=== PATIENT | female | born 1995 | race Caucasian/White ===

== ENCOUNTER 2018-03-28 09:18 | Inpatient (IN) | payer MEDICAID ==
[~2018-03-28] VITALS: Ht 157.5 cm; Wt 96.6 kg
[2018-03-28 09:23] VITALS: BP 135/94
[2018-03-28 11:10] VITALS: BP 116/70
[2018-03-28] MEDS ORDERED: MAG HYD/AL HYD/SIMETH 30ML UDC PO PRN (11:20)
[2018-03-28] MEDS ORDERED: ACETAMINOPHEN 325 MG TAB PO PRN (18:35)
[2018-03-28 19:35] VITALS: BP 133/92
[2018-03-28] MEDS: SERTRALINE HCL 50 MG TAB PO SCH (21:04)
[2018-03-28] MEDS: DOCUSATE SODIUM 100 MG CAP PO SCH (21:04)
[2018-03-29 06:06] VITALS: BP 124/85
[2018-03-29 07:45] VITALS: BP 125/92
[2018-03-29] MEDS: SERTRALINE HCL 50 MG TAB PO SCH (08:07)
[2018-03-29] MEDS: MULTIVITAMINS TAB PO SCH (08:07)
[2018-03-29] MEDS: DOCUSATE SODIUM 100 MG CAP PO SCH ×2 (08:07→20:24)
[2018-03-29] MEDS ORDERED: IBUP-56 PO (08:53)
[2018-03-29] MEDS: buPROPion SR 150 MG TABCR PO SCH (10:58)
[2018-03-29 11:51] LABS: PLATELET COUNT, AUTOMATED 321 K/uL (150-450)
[2018-03-29] MEDS ORDERED: ALBUTEROL 8 GM INHALER INH PRN (12:45)
[2018-03-29] MEDS ORDERED: ALBU8.5H IH (14:03)
[2018-03-29] MEDS: CHOLECALCIFEROL 1000 UNIT TAB PO SCH (14:21)
[2018-03-29 20:07] VITALS: BP 129/89
[2018-03-29] MEDS: TOPIRAMATE 25 MG TAB PO SCH (20:23)
[2018-03-29] MEDS ORDERED: IBUPROFEN 200 MG TAB PO PRN (23:30)
[2018-03-29] MEDS: IBUPROFEN 600 MG TAB PO PRN (23:37)
[2018-03-30] MEDS ORDERED: LORazepam 1 MG TAB PO ONE (02:25)
--- NOTE | 2018-03-30 03:02 | NUR ---
PT HAS BEEN UP MULTIPLE TIMES THIS EVENING. PT CAME OUT OF ROOM AND WANTED HER PULSE OX REMOVED. TRIED TO TALK PT INTO KEEPING IT ON FOR THE DATA. PT WAS ADAMANT ABOUT TAKING IT OFF BECAUSE IT WAS CAUSING HER "FINGERS TO GO NUMB". PT CONTINUED TO COME OUT OF HER ROOM (0024) STATING SHE CAN NOT SLEEP, OFFERED TEA, PT DECLINED. PT CONTINUED TO WALK OUT OF ROOM ABOUT EVERY 10 MIN. STATING SHE COULD NOT SLEEP, HER BACK WAS HURTING, WANTING WATER, EAR HURTS, TOILET WONT FLUSH, OR JUST WALK UP TO SKIP TRACER AND TURN BACK AROUND. AT 0210 PT WAS GIVEN 1MG ATIVAN AND TOLD SHE NEEDED TO HAVE THE PULSE OX BACK ON. PT AGREED.
[2018-03-30 05:50] VITALS: BP 124/82
[2018-03-30] MEDS: MULTIVITAMINS TAB PO SCH (08:03)
[2018-03-30] MEDS: buPROPion SR 150 MG TABCR PO SCH (08:03)
[2018-03-30] MEDS: CHOLECALCIFEROL 1000 UNIT TAB PO SCH (08:03)
[2018-03-30] MEDS: DOCUSATE SODIUM 100 MG CAP PO SCH ×2 (08:03→20:51)
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
[2018-03-30] MEDS: [UNRECOGNIZED DRUG - OTHER] TP PRN (13:02)
[2018-03-30] MEDS: CALAMINE TP PRN (13:02)
[2018-03-30] MEDS: IBUPROFEN 600 MG TAB PO PRN (13:16)
--- NOTE | 2018-03-30 14:01 | BHS Progress Note ---
BHS - Subjective Progress Notes Subjective Patient much more interactive today, and notably interacting well with her mother here for treatment team. Patient is easily re-directed behaviorally, will continue current medications and add in low dose valium at night. No evidence of psychosis today. Suicidal Ideation: None Homicidal Ideation: None S - Objective Physical Exam Vital Signs Vital Signs Date Time Temp Pulse Resp B/P (MAP) Pulse Ox O2 Delivery O2 Flow Rate FiO2 03/30/18 05:50 98.0 96 124/82 (96) 93 Room Air 03/29/18 06:06 15 Hematology Test 03/28/18 00:00 03/29/18 00:00 03/29/18 11:41 Urine HCG, Qualitative Negative (NEGATIVE) Urine Color Yellow Urine Clarity Turbid Urine pH 5.0 pH (4.8-9.5) Urine Specific Premier 1.029 Urine Protein Negative mg/dL (NEGATIVE) Urine Glucose (UA) Negative mg/dL (NEGATIVE) Urine Ketones Negative mg/dL (NEGATIVE) Urine Blood Moderate (NEGATIVE) Urine Nitrite Negative (NEGATIVE) Urine Bilirubin Negative (NEGATIVE) Urine Urobilinogen 2.0 mg/dL (0.2-1.9) Urine Leukocyte Esterase Small (NEGATIVE) Urine RBC 4 /HPF (0-2/HPF) Urine WBC 1 /HPF (0-5/HPF) Urine Squamous Epithelial Cells Many /LPF (</=FEW) Urine Bacteria Negative /HPF (NONE-FEW) Urine Mucus Few /HPF (NONE-FEW) Red Blood Count 4.50 M/uL (4.17-5.56) Mean Corpuscular Volume 92.0 fL (80.0-96.0) Mean Corpuscular Hemoglobin 31.4 pg (26.0-33.0) Mean Corpuscular Hemoglobin Concent 34.1 g/dL (32.0-36.0) Red Cell Distribution Width 13.2 % (11.5-14.5) Mean Platelet Volume 7.8 fL (7.2-11.1) Neutrophils (%) (Auto) 76.0 % (39.4-72.5) Lymphocytes (%) (Auto) 15.2 % (17.6-49.6) Monocytes (%) (Auto) 6.7 % (4.1-12.4) Eosinophils (%) (Auto) 1.4 % (0.4-6.7) Basophils (%) (Auto) 0.7 % (0.3-1.4) Nucleated RBC Relative Count (auto) 0.0 /100WBC Neutrophils # (Auto) 8.8 K/uL (2.0-7.4) Lymphocytes # (Auto) 1.8 K/uL (1.3-3.6) Monocytes # (Auto) 0.8 K/uL (0.3-1.0) Eosinophils # (Auto) 0.2 K/uL (0.0-0.5) Basophils # (Auto) 0.1 K/uL (0.0-0.1) Nucleated RBC Absolute Count (auto) 0.00 K/uL Sodium Level 137 mmol/L (137-145) Potassium Level 3.7 mmol/L (3.5-5.0) Chloride Level 102 mmol/L (98-107) Carbon Dioxide Level 25 mmol/L (22-31) Blood Urea Nitrogen 11 mg/dl (7-18) Creatinine 0.60 mg/dl (0.52-1.04) Glomerular Filtration Rate Calc > 60.0 Random Glucose 90 mg/dl (75-110) Calcium Level 9.4 mg/dl (8.4-10.2) Total Bilirubin 0.4 mg/dl (0.2-1.3) Aspartate Amino Transf (AST/SGOT) 94 U/L (0-35) Alanine Aminotransferase (ALT/SGPT) 67 U/L (0-56) Alkaline Phosphatase 77 U/L (0-126) Total Protein 6.3 g/dl (6.3-8.2) Albumin 3.7 g/dl (3.5-5.0) Vitamin D 25-Hydroxy 19 ng/ml (30-100) Thyroid Stimulating Hormone (TSH) 1.48 uIU/ml (0.46-4.68) Free Thyroxine 1.41 ng/dl (0.78-2.19) Free Triiodothyronine 2.9 pg/mL (2.4-4.2) Chemistry Test 03/28/18 00:00 03/29/18 00:00 03/29/18 11:41 Urine HCG, Qualitative Negative (NEGATIVE) Urine Color Yellow Urine Clarity Turbid Urine pH 5.0 pH (4.8-9.5) Urine Specific Premier 1.029 Urine Protein Negative mg/dL (NEGATIVE) Urine Glucose (UA) Negative mg/dL (NEGATIVE) Urine Ketones Negative mg/dL (NEGATIVE) Urine Blood Moderate (NEGATIVE) Urine Nitrite Negative (NEGATIVE) Urine Bilirubin Negative (NEGATIVE) Urine Urobilinogen 2.0 mg/dL (0.2-1.9) Urine Leukocyte Esterase Small (NEGATIVE) Urine RBC 4 /HPF (0-2/HPF) Urine WBC 1 /HPF (0-5/HPF) Urine Squamous Epithelial Cells Many /LPF (</=FEW) Urine Bacteria Negative /HPF (NONE-FEW) Urine Mucus Few /HPF (NONE-FEW) White Blood Count 11.6 k/uL (4.5-11.0) Red Blood Count 4.50 M/uL (4.17-5.56) Hemoglobin 14.1 g/dL (12.0-16.0) Hematocrit 41.4 % (34.0-47.0) Mean Corpuscular Volume 92.0 fL (80.0-96.0) Mean Corpuscular Hemoglobin 31.4 pg (26.0-33.0) Mean Corpuscular Hemoglobin Concent 34.1 g/dL (32.0-36.0) Red Cell Distribution Width 13.2 % (11.5-14.5) Platelet Count 321 K/uL (150-450) Mean Platelet Volume 7.8 fL (7.2-11.1) Neutrophils (%) (Auto) 76.0 % (39.4-72.5) Lymphocytes (%) (Auto) 15.2 % (17.6-49.6) Monocytes (%) (Auto) 6.7 % (4.1-12.4) Eosinophils (%) (Auto) 1.4 % (0.4-6.7) Basophils (%) (Auto) 0.7 % (0.3-1.4) Nucleated RBC Relative Count (auto) 0.0 /100WBC Neutrophils # (Auto) 8.8 K/uL (2.0-7.4) Lymphocytes # (Auto) 1.8 K/uL (1.3-3.6) Monocytes # (Auto) 0.8 K/uL (0.3-1.0) Eosinophils # (Auto) 0.2 K/uL (0.0-0.5) Basophils # (Auto) 0.1 K/uL (0.0-0.1) Nucleated RBC Absolute Count (auto) 0.00 K/uL Glomerular Filtration Rate Calc > 60.0 Calcium Level 9.4 mg/dl (8.4-10.2) Total Bilirubin 0.4 mg/dl (0.2-1.3) Aspartate Amino Transf (AST/SGOT) 94 U/L (0-35) Alanine Aminotransferase (ALT/SGPT) 67 U/L (0-56) Alkaline Phosphatase 77 U/L (0-126) Total Protein 6.3 g/dl (6.3-8.2) Albumin 3.7 g/dl (3.5-5.0) Vitamin D 25-Hydroxy 19 ng/ml (30-100) Thyroid Stimulating Hormone (TSH) 1.48 uIU/ml (0.46-4.68) Free Thyroxine 1.41 ng/dl (0.78-2.19) Free Triiodothyronine 2.9 pg/mL (2.4-4.2) Urinalysis Test 03/28/18 00:00 03/29/18 00:00 Urine HCG, Qualitative Negative (NEGATIVE) Urine Color Yellow Urine Clarity Turbid Urine pH 5.0 pH (4.8-9.5) Urine Specific Premier 1.029 Urine Protein Negative mg/dL (NEGATIVE) Urine Glucose (UA) Negative mg/dL (NEGATIVE) Urine Ketones Negative mg/dL (NEGATIVE) Urine Blood Moderate (NEGATIVE) Urine Nitrite Negative (NEGATIVE) Urine Bilirubin Negative (NEGATIVE) Urine Urobilinogen 2.0 mg/dL (0.2-1.9) Urine Leukocyte Esterase Small (NEGATIVE) Urine RBC 4 /HPF (0-2/HPF) Urine WBC 1 /HPF (0-5/HPF) Urine Squamous Epithelial Cells Many /LPF (</=FEW) Urine Bacteria Negative /HPF (NONE-FEW) Urine Mucus Few /HPF (NONE-FEW) Muscle Strength and Tone: WNL Gait and Station: Steady [facility] Medications Reviewed: Side Effects, Benefits of Medication, Risks Allergies Reviewed: Yes Mental Status Exam General Appearance: Casual, Well Groomed, Good Eye Contact (improved), Cooperative, Polite, Good Interaction, Tearful (at times), Psychomotor Retardation (ongoing), Bizarre Mannerisms (posturing); No Tics Speech: Clear, Normal Volume, Delayed Mood: Dysthmic/Depressed (some improvement. ) Affect: Calm, Sad (at times), Flat (at times), Tearful Thought Process: Goal Directed ("I want to go home"); No Loose Associations, No Flight of Ideas Thought Content: No Suicidal Ideation, No Homicidal Ideation, No Delusions, No Auditory Halllucinations, No Visual Hallucinations, No Thought Broadcasting, No Ideas of Reference, No Obsessions, No Compulsions Sensorium: Clear Cognition: Alert & Oriented-Person, Alert & Oriented-Place, Alert & Oriented- Time, Sttlj-Sctyympm-Jisqjqtek (partially) Memory: Immediate, Recent, Remote Intelligence: Below Average Insight Judgment: Poor (limited by cognition, and current symptoms. 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 continue treatment. 2. low dose valium Q SHALINI MARIE MD Mar 30, 2018 14:01
[2018-03-30] MEDS ORDERED: CYANOCOBALAMIN 1000MCG/ML VIAL IM ONLY ONE (14:55)
[2018-03-30 18:20] VITALS: BP 116/60
[2018-03-30] MEDS: TOPIRAMATE 25 MG TAB PO SCH (20:51)
[2018-03-30] MEDS: DIAZEPAM 5 MG TAB PO SCH (20:51)
[2018-03-31 01:15] VITALS: BP 124/93
[2018-03-31] MEDS: DOCUSATE SODIUM 100 MG CAP PO SCH ×2 (07:50→21:14)
[2018-03-31] MEDS: CHOLECALCIFEROL 1000 UNIT TAB PO SCH (07:50)
[2018-03-31] MEDS: MULTIVITAMINS TAB PO SCH (07:50)
[2018-03-31] MEDS: buPROPion SR 150 MG TABCR PO SCH (07:50)
--- NOTE | 2018-03-31 09:19 | BHS Progress Note ---
[facility] - Subjective Progress Notes Subjective "I'm exhausted and I just want to go home." Rates anxiety level a 10, depression level 10, anger level a 10, guilt a 10, denies SI or HI. Suicidal Ideation: None Homicidal Ideation: None [facility] - Objective Physical Exam Vital Signs Vital Signs 03/31/18 01:15 Temp 97.8 Pulse 92 Resp 16 B/P (MAP) 124/93 (103) Pulse Ox 92 O2 Delivery Room Air Muscle Strength and Tone: WNL Gait and Station: Steady [facility] Medications Reviewed: Side Effects, Benefits of Medication, Risks Allergies Reviewed: Yes Mental Status Exam General Appearance: Casual, Well Groomed, Good Eye Contact (improved), Cooperative, Polite, Good Interaction, Tearful (at times), Psychomotor Retardati on (ongoing), Bizarre Mannerisms (posturing); No Tics Speech: Clear, Normal Volume, Delayed Mood: Dysthmic/Depressed (some improvement. ) Affect: Calm, Sad (at times), Flat (at times), Tearful Thought Process: Goal Directed ("I want to go home"); No Loose Associations, No Flight of Ideas Thought Content: No Suicidal Ideation, No Homicidal Ideation, No Delusions, No Auditory Halllucinations, No Visual Hallucinations, No Thought Broadcasting, No Ideas of Reference, No Obsessions, No Compulsions Sensorium: Clear Cognition: Alert & Oriented-Person, Alert & Oriented-Place, Alert & Oriented- Time, Bbyzn-Sdgbzumb-Quduwsjej (partially) Memory: Immediate, Recent, Remote Intelligence: Below Average Insight Judgment: Poor (limited by cognition, and current symptoms. ) Result Diagram: 03/29/18 1141 03/29/18 1141 [facility] Assessment and Plan [id number] Encounter Date: Mar 31, 2018 [id number] Encounter Time: 09:00 [facility] Plan: Necessary Precautions, Individual/Group Therapy, Admin/Titrate Meds, Educate Patient Tobacco Medications: Bupropion (Wellbutrin), Varenicline (Chantix), Started, Refused, Not Appropriate Condition, Contrainidicated Multpiple Antipsychotics Used: No Problems: (1) Cannabis use disorder, severe, in controlled environment Status: Chronic CHRISTEN MONTANA NP Mar 31, 2018 09:19
[2018-03-31 14:45] VITALS: BP 122/72
[2018-03-31 20:05] VITALS: BP 118/70
[2018-03-31] MEDS: DIAZEPAM 5 MG TAB PO SCH (21:14)
[2018-03-31] MEDS: TOPIRAMATE 25 MG TAB PO SCH (21:14)
[2018-04-01] MEDS: IBUPROFEN 600 MG TAB PO PRN (04:14)
[2018-04-01] MEDS: MULTIVITAMINS TAB PO SCH (08:40)
[2018-04-01] MEDS: DOCUSATE SODIUM 100 MG CAP PO SCH ×2 (08:40→21:04)
[2018-04-01] MEDS: CHOLECALCIFEROL 1000 UNIT TAB PO SCH (08:40)
[2018-04-01] MEDS: buPROPion SR 150 MG TABCR PO SCH (08:40)
[2018-04-01 10:23] VITALS: BP 122/81
--- NOTE | 2018-04-01 11:53 | BHS Progress Note ---
[facility] - Subjective Progress Notes Subjective "I want to go home. I can't keep doing this. I don't like to be in the hospital." Suicidal Ideation: None Homicidal Ideation: None [facility] - Objective Physical Exam Vital Signs Vital Signs 04/01/18 10:23 Temp 97.8 Pulse 98 Resp 20 B/P (MAP) 122/81 (95) Pulse Ox 94 O2 Delivery Room Air Muscle Strength and Tone: WNL Gait and Station: Steady [facility] Medications Reviewed: Side Effects, Benefits of Medication, Risks Allergies Reviewed: Yes Mental Status Exam General Appearance: Casual, Well Groomed, Good Eye Contact (improved), Cooperative, Polite, Good Interaction, Tearful (at times), Psychomotor Retardation (ongoing), Bizarre Mannerisms (posturing); No Tics Speech: Clear, Normal Volume, Delayed Mood: Dysthmic/Depressed (some improvement. ) Affect: Calm, Sad (at times), Flat (at times), Tearful Thought Process: Goal Directed ("I want to go home"); No Loose Associations, No Flight of Ideas Thought Content: No Suicidal Ideation, No Homicidal Ideation, No Delusions, No Auditory Halllucinations, No Visual Hallucinations, No Thought Broadcasting, No Ideas of Reference, No Obsessions, No Compulsions Sensorium: Clear Cognition: Alert & Oriented-Person, Alert & Oriented-Place, Alert & Oriented- Time, Rkbaz-Ylowsbzv-Ipylncuyw (partially) Memory: Immediate, Recent, Remote Intelligence: Below Average Insight Judgment: Poor (limited by cognition, and current symptoms. ) Result Diagram: 03/29/18 1141 03/29/18 1141 [facility] Assessment and Plan [id number] Encounter Date: Apr 01, 2018 [id number] Encounter Time: 09:30 [facility] Plan: Necessary Precautions, Individual/Group Therapy, Admin/Titrate Meds, Educate Patient Tobacco Medications: Bupropion (Wellbutrin), Varenicline (Chantix), Started, Refused, Not Appropriate Condition, Contrainidicated Multpiple Antipsychotics Used: No Problems: (1) Cannabis use disorder, severe, in controlled environment Status: Chronic CHRISTEN MONTANA NP Apr 01, 2018 11:53
[2018-04-01 19:20] VITALS: BP 122/62
[2018-04-01] MEDS: TOPIRAMATE 25 MG TAB PO SCH (21:04)
[2018-04-01] MEDS: DIAZEPAM 5 MG TAB PO SCH (21:04)
--- NOTE | 2018-04-02 00:34 | NUR ---
Pt has been out to the desk multiple times voicing somatic complaints and complaining that she cannot sleep. Pt was redirected each time and advised to go lie down and try to sleep. Other measures such as hot tea, etc. were offered and refused.
[2018-04-02] MEDS: IBUPROFEN 600 MG TAB PO PRN (03:25)
[2018-04-02 05:24] VITALS: BP 126/81
[2018-04-02] MEDS: MULTIVITAMINS TAB PO SCH (07:28)
[2018-04-02] MEDS: DOCUSATE SODIUM 100 MG CAP PO SCH ×2 (07:28→20:26)
[2018-04-02] MEDS: buPROPion SR 150 MG TABCR PO SCH (07:28)
[2018-04-02] MEDS: CHOLECALCIFEROL 1000 UNIT TAB PO SCH (07:28)
--- NOTE | 2018-04-02 08:10 | BHS Progress Note ---
[facility] - Subjective Progress Notes Subjective Patient reporting poor sleep last PM. Likely related to sleep apnea. Will have head of bed elevated tonight, and increase Topamax. Will also increase vitamin D3, and start B-complex. Patient needs continued therapy to focus on avoidance of somatization. which is ongoing. Will continue to see if cancellation at sleep lab will make for available study in this patient. Suicidal Ideation: None Homicidal Ideation: None [facility] - Objective Physical Exam Vital Signs Vital Signs Date Time Temp Pulse Resp B/P (MAP) Pulse Ox O2 Delivery O2 Flow Rate FiO2 04/02/18 05:24 98.7 90 16 126/81 (96) 96 Room Air Muscle Strength and Tone: WNL Gait and Station: Steady (slowed unless prompted to accelerate. ) [facility] Medications Reviewed: Side Effects, Benefits of Medication, Risks Allergies Reviewed: Yes Mental Status Exam General Appearance: Casual, Well Groomed, Good Eye Contact (improved), Cooperative, Polite, Good Interaction; No Tearful; Psychomotor Retardation (ongoing), Bizarre Mannerisms (posturing and gait,); No Tics Speech: Clear, Normal Volume (quiet at times), Normal Tone, Delayed (at times) Mood: Dysthmic/Depressed (some improvement. ) Affect: Calm; No Sad; Flat (at times); No Tearful, No Anxious, No Agitated Thought Process: Goal Directed ("I want to go home"); No Loose Associations, No Flight of Ideas Thought Content: No Suicidal Ideation, No Homicidal Ideation, No Delusions, No Auditory Halllucinations, No Visual Hallucinations, No Thought Broadcasting, No Ideas of Reference, No Obsessions, No Compulsions Sensorium: Clear Cognition: Alert & Oriented-Person, Alert & Oriented-Place, Alert & Oriented- Time, [id number]-[id number] (partially) Memory: Immediate, Recent, Remote Intelligence: Below Average Insight Judgment: Poor (limited by cognition, and current symptoms. 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 Last Edited By: Shalini Marie on Apr 02, 2018 08:08 Status: Chronic Condition 1. increase Topamax tonight. 2. start B-complex, and increase Vitamin D3 3. elevate head of bed. 4. await availability of sleep lab. SHALINI MARIE MD Apr 02, 2018 08:09
[2018-04-02 08:44] VITALS: BP 125/85
[2018-04-02] MEDS ORDERED: CHOLECALCIFEROL 1000 UNIT TAB PO SCH (09:00)
[2018-04-02] MEDS ORDERED: FOLIC ACID/CYANOCOB/PYRIDOXINE PO SCH (09:00)
[2018-04-02] MEDS: DIAZEPAM 5 MG TAB PO SCH (20:26)
[2018-04-02] MEDS: TOPIRAMATE 25 MG TAB PO SCH (20:26)
[2018-04-02 22:19] VITALS: BP 122/92
[2018-04-03 06:21] VITALS: BP 119/96
[2018-04-03] MEDS: IBUPROFEN 600 MG TAB PO PRN (07:31)
[2018-04-03] MEDS: DOCUSATE SODIUM 100 MG CAP PO SCH ×2 (08:21→20:29)
[2018-04-03] MEDS: FOLIC ACID/CYANOCOB/PYRIDOXINE PO SCH (08:21)
[2018-04-03] MEDS: MULTIVITAMINS TAB PO SCH (08:21)
[2018-04-03] MEDS: LIOTHYRONINE SODIUM 5 MCG TAB PO SCH (08:21)
[2018-04-03] MEDS: CHOLECALCIFEROL 1000 UNIT TAB PO SCH (08:22)
[2018-04-03] MEDS: buPROPion SR 150 MG TABCR PO SCH (08:22)
--- NOTE | 2018-04-03 13:55 | BHS Progress Note ---
[facility] - Subjective Progress Notes Subjective Patient notably sleeping very well last night, with increased Topamax, and elevated head of bed. Will continue to work with patient to avoid sick role behaviors. Will consider increase in wellbutrin at some point. Patient worried about her father visiting today. Will continue treatment. Patient stating she is opposed to going into a [facility]. Suicidal Ideation: None Homicidal Ideation: None S - Objective Physical Exam Vital Signs Vital Signs Date Time Temp Pulse Resp B/P (MAP) Pulse Ox O2 Delivery O2 Flow Rate FiO2 04/03/18 06:21 98.6 114 15 119/96 (104) 96 Room Air Hematology Test 03/28/18 00:00 03/29/18 00:00 03/29/18 11:41 Urine HCG, Qualitative Negative (NEGATIVE) Urine Color Yellow Urine Clarity Turbid Urine pH 5.0 pH (4.8-9.5) Urine Specific [place] 1.029 Urine Protein Negative mg/dL (NEGATIVE) Urine Glucose (UA) Negative mg/dL (NEGATIVE) Urine Ketones Negative mg/dL (NEGATIVE) Urine Blood Moderate (NEGATIVE) Urine Nitrite Negative (NEGATIVE) Urine Bilirubin Negative (NEGATIVE) Urine Urobilinogen 2.0 mg/dL (0.2-1.9) Urine Leukocyte Esterase Small (NEGATIVE) Urine RBC 4 /HPF (0-2/HPF) Urine WBC 1 /HPF (0-5/HPF) Urine Squamous Epithelial Cells Many /LPF (</=FEW) Urine Bacteria Negative /HPF (NONE-FEW) Urine Mucus Few /HPF (NONE-FEW) Red Blood Count 4.50 M/uL (4.17-5.56) Mean Corpuscular Volume 92.0 fL (80.0-96.0) Mean Corpuscular Hemoglobin 31.4 pg (26.0-33.0) Mean Corpuscular Hemoglobin Concent 34.1 g/dL (32.0-36.0) Red Cell Distribution Width 13.2 % (11.5-14.5) Mean Platelet Volume 7.8 fL (7.2-11.1) Neutrophils (%) (Auto) 76.0 % (39.4-72.5) Lymphocytes (%) (Auto) 15.2 % (17.6-49.6) Monocytes (%) (Auto) 6.7 % (4.1-12.4) Eosinophils (%) (Auto) 1.4 % (0.4-6.7) Basophils (%) (Auto) 0.7 % (0.3-1.4) Nucleated RBC Relative Count (auto) 0.0 /100WBC Neutrophils # (Auto) 8.8 K/uL (2.0-7.4) Lymphocytes # (Auto) 1.8 K/uL (1.3-3.6) Monocytes # (Auto) 0.8 K/uL (0.3-1.0) Eosinophils # (Auto) 0.2 K/uL (0.0-0.5) Basophils # (Auto) 0.1 K/uL (0.0-0.1) Nucleated RBC Absolute Count (auto) 0.00 K/uL Sodium Level 137 mmol/L (137-145) Potassium Level 3.7 mmol/L (3.5-5.0) Chloride Level 102 mmol/L (98-107) Carbon Dioxide Level 25 mmol/L (22-31) Blood Urea Nitrogen 11 mg/dl (7-18) Creatinine 0.60 mg/dl (0.52-1.04) Glomerular Filtration Rate Calc > 60.0 Random Glucose 90 mg/dl (75-110) Calcium Level 9.4 mg/dl (8.4-10.2) Total Bilirubin 0.4 mg/dl (0.2-1.3) Aspartate Amino Transf (AST/SGOT) 94 U/L (0-35) Alanine Aminotransferase (ALT/SGPT) 67 U/L (0-56) Alkaline Phosphatase 77 U/L (0-126) Total Protein 6.3 g/dl (6.3-8.2) Albumin 3.7 g/dl (3.5-5.0) Vitamin B12 Level 177 pg/mL (180-914) Vitamin D 25-Hydroxy 19 ng/ml (30-100) Folate 21.9 ng/mL (>=5.9) Thyroid Stimulating Hormone (TSH) 1.48 uIU/ml (0.46-4.68) Free Thyroxine 1.41 ng/dl (0.78-2.19) Free Triiodothyronine 2.9 pg/mL (2.4-4.2) Chemistry Test 03/28/18 00:00 03/29/18 00:00 03/29/18 11:41 Urine HCG, Qualitative Negative (NEGATIVE) Urine Color Yellow Urine Clarity Turbid Urine pH 5.0 pH (4.8-9.5) Urine Specific [place] 1.029 Urine Protein Negative mg/dL (NEGATIVE) Urine Glucose (UA) Negative mg/dL (NEGATIVE) Urine Ketones Negative mg/dL (NEGATIVE) Urine Blood Moderate (NEGATIVE) Urine Nitrite Negative (NEGATIVE) Urine Bilirubin Negative (NEGATIVE) Urine Urobilinogen 2.0 mg/dL (0.2-1.9) Urine Leukocyte Esterase Small (NEGATIVE) Urine RBC 4 /HPF (0-2/HPF) Urine WBC 1 /HPF (0-5/HPF) Urine Squamous Epithelial Cells Many /LPF (</=FEW) Urine Bacteria Negative /HPF (NONE-FEW) Urine Mucus Few /HPF (NONE-FEW) White Blood Count 11.6 k/uL (4.5-11.0) Red Blood Count 4.50 M/uL (4.17-5.56) Hemoglobin 14.1 g/dL (12.0-16.0) Hematocrit 41.4 % (34.0-47.0) Mean Corpuscular Volume 92.0 fL (80.0-96.0) Mean Corpuscular Hemoglobin 31.4 pg (26.0-33.0) Mean Corpuscular Hemoglobin Concent 34.1 g/dL (32.0-36.0) Red Cell Distribution Width 13.2 % (11.5-14.5) Platelet Count 321 K/uL (150-450) Mean Platelet Volume 7.8 fL (7.2-11.1) Neutrophils (%) (Auto) 76.0 % (39.4-72.5) Lymphocytes (%) (Auto) 15.2 % (17.6-49.6) Monocytes (%) (Auto) 6.7 % (4.1-12.4) Eosinophils (%) (Auto) 1.4 % (0.4-6.7) Basophils (%) (Auto) 0.7 % (0.3-1.4) Nucleated RBC Relative Count (auto) 0.0 /100WBC Neutrophils # (Auto) 8.8 K/uL (2.0-7.4) Lymphocytes # (Auto) 1.8 K/uL (1.3-3.6) Monocytes # (Auto) 0.8 K/uL (0.3-1.0) Eosinophils # (Auto) 0.2 K/uL (0.0-0.5) Basophils # (Auto) 0.1 K/uL (0.0-0.1) Nucleated RBC Absolute Count (auto) 0.00 K/uL Glomerular Filtration Rate Calc > 60.0 Calcium Level 9.4 mg/dl (8.4-10.2) Total Bilirubin 0.4 mg/dl (0.2-1.3) Aspartate Amino Transf (AST/SGOT) 94 U/L (0-35) Alanine Aminotransferase (ALT/SGPT) 67 U/L (0-56) Alkaline Phosphatase 77 U/L (0-126) Total Protein 6.3 g/dl (6.3-8.2) Albumin 3.7 g/dl (3.5-5.0) Vitamin B12 Level 177 pg/mL (180-914) Vitamin D 25-Hydroxy 19 ng/ml (30-100) Folate 21.9 ng/mL (>=5.9) Thyroid Stimulating Hormone (TSH) 1.48 uIU/ml (0.46-4.68) Free Thyroxine 1.41 ng/dl (0.78-2.19) Free Triiodothyronine 2.9 pg/mL (2.4-4.2) Urinalysis Test 03/28/18 00:00 03/29/18 00:00 Urine HCG, Qualitative Negative (NEGATIVE) Urine Color Yellow Urine Clarity Turbid Urine pH 5.0 pH (4.8-9.5) Urine Specific [place] 1.029 Urine Protein Negative mg/dL (NEGATIVE) Urine Glucose (UA) Negative mg/dL (NEGATIVE) Urine Ketones Negative mg/dL (NEGATIVE) Urine Blood Moderate (NEGATIVE) Urine Nitrite Negative (NEGATIVE) Urine Bilirubin Negative (NEGATIVE) Urine Urobilinogen 2.0 mg/dL (0.2-1.9) Urine Leukocyte Esterase Small (NEGATIVE) Urine RBC 4 /HPF (0-2/HPF) Urine WBC 1 /HPF (0-5/HPF) Urine Squamous Epithelial Cells Many /LPF (</=FEW) Urine Bacteria Negative /HPF (NONE-FEW) Urine Mucus Few /HPF (NONE-FEW) Muscle Strength and Tone: WNL Gait and Station: Steady (slowed unless prompted to accelerate. ) [facility] Medications Reviewed: Side Effects, Benefits of Medication, Risks Allergies Reviewed: Yes Mental Status Exam General Appearance: Casual, Well Groomed, Good Eye Contact (improved), Cooperative, Polite, Good Interaction; No Tearful; Psychomotor Retardation (ongoing), Bizarre Mannerisms (posturing and gait,); No Tics Speech: Clear, Normal Rate, Normal Volume (quiet at times), Normal Tone, Delayed (at times) Mood: Dysthmic/Depressed (some improvement. ) Affect: Calm; No Sad; Flat (at times); No Tearful, No Anxious, No Agitated Thought Process: Goal Directed ("I want to go home"); No Loose Associations, No Flight of Ideas Thought Content: No Suicidal Ideation, No Homicidal Ideation, No Delusions, No Auditory Halllucinations, No Visual Hallucinations, No Thought Broadcasting, No Ideas of Reference, No Obsessions, No Compulsions Sensorium: Clear Cognition: Alert & Oriented-Person, Alert & Oriented-Place, Alert & Oriented- Time, Mtysf-Sqhcrtae-Hoeeyeqkq (partially) Memory: Immediate, Recent, Remote Intelligence: Below Average Insight Judgment: Poor (limited by cognition, and current symptoms. 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 Last Edited By: Shalini Marie on Apr 02, 2018 08:08 Status: Chronic Condition 1. continue treatment. 2. start cytomel today. SHALINI MARIE MD Apr 03, 2018 13:55
[2018-04-03 14:04] VITALS: BP 118/88
[2018-04-03] MEDS: DIAZEPAM 5 MG TAB PO SCH (20:29)
[2018-04-03] MEDS: TOPIRAMATE 25 MG TAB PO SCH (20:30)
[2018-04-03 21:56] VITALS: BP 123/87
[2018-04-04] MEDS: IBUPROFEN 600 MG TAB PO PRN (05:36)
[2018-04-04 05:38] VITALS: BP 111/66
[2018-04-04] MEDS: CHOLECALCIFEROL 1000 UNIT TAB PO SCH (08:03)
[2018-04-04] MEDS: MULTIVITAMINS TAB PO SCH (08:03)
[2018-04-04] MEDS: LIOTHYRONINE SODIUM 5 MCG TAB PO SCH (08:03)
[2018-04-04] MEDS: FOLIC ACID/CYANOCOB/PYRIDOXINE PO SCH (08:03)
[2018-04-04] MEDS: buPROPion SR 150 MG TABCR PO SCH (08:03)
[2018-04-04] MEDS: DOCUSATE SODIUM 100 MG CAP PO SCH ×2 (08:03→21:20)
--- NOTE | 2018-04-04 11:57 | BHS Progress Note ---
BHS - Subjective Progress Notes Subjective Patient continues to display somatic symptoms on the unit. At other times noted to be very comfortable on the unit, when talking with people on the phone, or having pleasant interactions with people on the unit. Sleep improved, will continue to await sleep study. No medications changes today. Suicidal Ideation: None Homicidal Ideation: None S - Objective Physical Exam Vital Signs Hematology Test 03/28/18 00:00 03/29/18 00:00 03/29/18 11:41 Urine HCG, Qualitative Negative (NEGATIVE) Urine Color Yellow Urine Clarity Turbid Urine pH 5.0 pH (4.8-9.5) Urine Specific [place] 1.029 Urine Protein Negative mg/dL (NEGATIVE) Urine Glucose (UA) Negative mg/dL (NEGATIVE) Urine Ketones Negative mg/dL (NEGATIVE) Urine Blood Moderate (NEGATIVE) Urine Nitrite Negative (NEGATIVE) Urine Bilirubin Negative (NEGATIVE) Urine Urobilinogen 2.0 mg/dL (0.2-1.9) Urine Leukocyte Esterase Small (NEGATIVE) Urine RBC 4 /HPF (0-2/HPF) Urine WBC 1 /HPF (0-5/HPF) Urine Squamous Epithelial Cells Many /LPF (</=FEW) Urine Bacteria Negative /HPF (NONE-FEW) Urine Mucus Few /HPF (NONE-FEW) Red Blood Count 4.50 M/uL (4.17-5.56) Mean Corpuscular Volume 92.0 fL (80.0-96.0) Mean Corpuscular Hemoglobin 31.4 pg (26.0-33.0) Mean Corpuscular Hemoglobin Concent 34.1 g/dL (32.0-36.0) Red Cell Distribution Width 13.2 % (11.5-14.5) Mean Platelet Volume 7.8 fL (7.2-11.1) Neutrophils (%) (Auto) 76.0 % (39.4-72.5) Lymphocytes (%) (Auto) 15.2 % (17.6-49.6) Monocytes (%) (Auto) 6.7 % (4.1-12.4) Eosinophils (%) (Auto) 1.4 % (0.4-6.7) Basophils (%) (Auto) 0.7 % (0.3-1.4) Nucleated RBC Relative Count (auto) 0.0 /100WBC Neutrophils # (Auto) 8.8 K/uL (2.0-7.4) Lymphocytes # (Auto) 1.8 K/uL (1.3-3.6) Monocytes # (Auto) 0.8 K/uL (0.3-1.0) Eosinophils # (Auto) 0.2 K/uL (0.0-0.5) Basophils # (Auto) 0.1 K/uL (0.0-0.1) Nucleated RBC Absolute Count (auto) 0.00 K/uL Sodium Level 137 mmol/L (137-145) Potassium Level 3.7 mmol/L (3.5-5.0) Chloride Level 102 mmol/L (98-107) Carbon Dioxide Level 25 mmol/L (22-31) Blood Urea Nitrogen 11 mg/dl (7-18) Creatinine 0.60 mg/dl (0.52-1.04) Glomerular Filtration Rate Calc > 60.0 Random Glucose 90 mg/dl (75-110) Calcium Level 9.4 mg/dl (8.4-10.2) Total Bilirubin 0.4 mg/dl (0.2-1.3) Aspartate Amino Transf (AST/SGOT) 94 U/L (0-35) Alanine Aminotransferase (ALT/SGPT) 67 U/L (0-56) Alkaline Phosphatase 77 U/L (0-126) Total Protein 6.3 g/dl (6.3-8.2) Albumin 3.7 g/dl (3.5-5.0) Vitamin B12 Level 177 pg/mL (180-914) Vitamin D 25-Hydroxy 19 ng/ml (30-100) Folate 21.9 ng/mL (>=5.9) Thyroid Stimulating Hormone (TSH) 1.48 uIU/ml (0.46-4.68) Free Thyroxine 1.41 ng/dl (0.78-2.19) Free Triiodothyronine 2.9 pg/mL (2.4-4.2) Chemistry Test 03/28/18 00:00 03/29/18 00:00 03/29/18 11:41 Urine HCG, Qualitative Negative (NEGATIVE) Urine Color Yellow Urine Clarity Turbid Urine pH 5.0 pH (4.8-9.5) Urine Specific [place] 1.029 Urine Protein Negative mg/dL (NEGATIVE) Urine Glucose (UA) Negative mg/dL (NEGATIVE) Urine Ketones Negative mg/dL (NEGATIVE) Urine Blood Moderate (NEGATIVE) Urine Nitrite Negative (NEGATIVE) Urine Bilirubin Negative (NEGATIVE) Urine Urobilinogen 2.0 mg/dL (0.2-1.9) Urine Leukocyte Esterase Small (NEGATIVE) Urine RBC 4 /HPF (0-2/HPF) Urine WBC 1 /HPF (0-5/HPF) Urine Squamous Epithelial Cells Many /LPF (</=FEW) Urine Bacteria Negative /HPF (NONE-FEW) Urine Mucus Few /HPF (NONE-FEW) White Blood Count 11.6 k/uL (4.5-11.0) Red Blood Count 4.50 M/uL (4.17-5.56) Hemoglobin 14.1 g/dL (12.0-16.0) Hematocrit 41.4 % (34.0-47.0) Mean Corpuscular Volume 92.0 fL (80.0-96.0) Mean Corpuscular Hemoglobin 31.4 pg (26.0-33.0) Mean Corpuscular Hemoglobin Concent 34.1 g/dL (32.0-36.0) Red Cell Distribution Width 13.2 % (11.5-14.5) Platelet Count 321 K/uL (150-450) Mean Platelet Volume 7.8 fL (7.2-11.1) Neutrophils (%) (Auto) 76.0 % (39.4-72.5) Lymphocytes (%) (Auto) 15.2 % (17.6-49.6) Monocytes (%) (Auto) 6.7 % (4.1-12.4) Eosinophils (%) (Auto) 1.4 % (0.4-6.7) Basophils (%) (Auto) 0.7 % (0.3-1.4) Nucleated RBC Relative Count (auto) 0.0 /100WBC Neutrophils # (Auto) 8.8 K/uL (2.0-7.4) Lymphocytes # (Auto) 1.8 K/uL (1.3-3.6) Monocytes # (Auto) 0.8 K/uL (0.3-1.0) Eosinophils # (Auto) 0.2 K/uL (0.0-0.5) Basophils # (Auto) 0.1 K/uL (0.0-0.1) Nucleated RBC Absolute Count (auto) 0.00 K/uL Glomerular Filtration Rate Calc > 60.0 Calcium Level 9.4 mg/dl (8.4-10.2) Total Bilirubin 0.4 mg/dl (0.2-1.3) Aspartate Amino Transf (AST/SGOT) 94 U/L (0-35) Alanine Aminotransferase (ALT/SGPT) 67 U/L (0-56) Alkaline Phosphatase 77 U/L (0-126) Total Protein 6.3 g/dl (6.3-8.2) Albumin 3.7 g/dl (3.5-5.0) Vitamin B12 Level 177 pg/mL (180-914) Vitamin D 25-Hydroxy 19 ng/ml (30-100) Folate 21.9 ng/mL (>=5.9) Thyroid Stimulating Hormone (TSH) 1.48 uIU/ml (0.46-4.68) Free Thyroxine 1.41 ng/dl (0.78-2.19) Free Triiodothyronine 2.9 pg/mL (2.4-4.2) Urinalysis Test 03/28/18 00:00 03/29/18 00:00 Urine HCG, Qualitative Negative (NEGATIVE) Urine Color Yellow Urine Clarity Turbid Urine pH 5.0 pH (4.8-9.5) Urine Specific [place] 1.029 Urine Protein Negative mg/dL (NEGATIVE) Urine Glucose (UA) Negative mg/dL (NEGATIVE) Urine Ketones Negative mg/dL (NEGATIVE) Urine Blood Moderate (NEGATIVE) Urine Nitrite Negative (NEGATIVE) Urine Bilirubin Negative (NEGATIVE) Urine Urobilinogen 2.0 mg/dL (0.2-1.9) Urine Leukocyte Esterase Small (NEGATIVE) Urine RBC 4 /HPF (0-2/HPF) Urine WBC 1 /HPF (0-5/HPF) Urine Squamous Epithelial Cells Many /LPF (</=FEW) Urine Bacteria Negative /HPF (NONE-FEW) Urine Mucus Few /HPF (NONE-FEW) Vital Signs Date Time Temp Pulse Resp B/P (MAP) Pulse Ox O2 Delivery O2 Flow Rate FiO2 04/04/18 05:38 97.7 118 15 111/66 (81) 96 Room Air Muscle Strength and Tone: WNL Gait and Station: Steady (slowed unless prompted to accelerate. ) S Medications Reviewed: Side Effects, Benefits of Medication, Risks Allergies Reviewed: Yes Mental Status Exam General Appearance: Casual, Well Groomed, Good Eye Contact (improved), Cooperative, Polite, Good Interaction; No Tearful; Psychomotor Retardation (ongoing), Bizarre Mannerisms (posturing and gait,); No Tics Speech: Clear, Normal Rate, Normal Volume (quiet at times), Normal Tone, Delayed (at times) Mood: Dysthmic/Depressed (some improvement. ) Affect: Calm; No Sad; Flat (at times); No Tearful, No Anxious, No Agitated Thought Process: Goal Directed ("I want to go home"); No Loose Associations, No Flight of Ideas Thought Content: No Suicidal Ideation, No Homicidal Ideation, No Delusions, No Auditory Halllucinations, No Visual Hallucinations, No Thought Broadcasting, No Ideas of Reference, No Obsessions, No Compulsions Sensorium: Clear Cognition: Alert & Oriented-Person, Alert & Oriented-Place, Alert & Oriented- Time, [id number]-Ttjbnafc-Mwtaqxygd (partially) Memory: Immediate, Recent, Remote Intelligence: Below Average Insight Judgment: Poor (limited by cognition, and current symptoms. 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 Last Edited By: Shalini Marie on Apr 02, 2018 08:08 Status: Chronic Condition 1. continue treatment. 2. no medication changes. Vital Signs Date Time Temp Pulse Resp B/P (MAP) Pulse Ox O2 Delivery O2 Flow Rate FiO2 04/04/18 05:38 97.7 118 15 111/66 (81) 96 Room Air Hematology Test 03/28/18 00:00 03/29/18 00:00 03/29/18 11:41 Urine HCG, Qualitative Negative (NEGATIVE) Urine Color Yellow Urine Clarity Turbid Urine pH 5.0 pH (4.8-9.5) Urine Specific [place] 1.029 Urine Protein Negative mg/dL (NEGATIVE) Urine Glucose (UA) Negative mg/dL (NEGATIVE) Urine Ketones Negative mg/dL (NEGATIVE) Urine Blood Moderate (NEGATIVE) Urine Nitrite Negative (NEGATIVE) Urine Bilirubin Negative (NEGATIVE) Urine Urobilinogen 2.0 mg/dL (0.2-1.9) Urine Leukocyte Esterase Small (NEGATIVE) Urine RBC 4 /HPF (0-2/HPF) Urine WBC 1 /HPF (0-5/HPF) Urine Squamous Epithelial Cells Many /LPF (</=FEW) Urine Bacteria Negative /HPF (NONE-FEW) Urine Mucus Few /HPF (NONE-FEW) Red Blood Count 4.50 M/uL (4.17-5.56) Mean Corpuscular Volume 92.0 fL (80.0-96.0) Mean Corpuscular Hemoglobin 31.4 pg (26.0-33.0) Mean Corpuscular Hemoglobin Concent 34.1 g/dL (32.0-36.0) Red Cell Distribution Width 13.2 % (11.5-14.5) Mean Platelet Volume 7.8 fL (7.2-11.1) Neutrophils (%) (Auto) 76.0 % (39.4-72.5) Lymphocytes (%) (Auto) 15.2 % (17.6-49.6) Monocytes (%) (Auto) 6.7 % (4.1-12.4) Eosinophils (%) (Auto) 1.4 % (0.4-6.7) Basophils (%) (Auto) 0.7 % (0.3-1.4) Nucleated RBC Relative Count (auto) 0.0 /100WBC Neutrophils # (Auto) 8.8 K/uL (2.0-7.4) Lymphocytes # (Auto) 1.8 K/uL (1.3-3.6) Monocytes # (Auto) 0.8 K/uL (0.3-1.0) Eosinophils # (Auto) 0.2 K/uL (0.0-0.5) Basophils # (Auto) 0.1 K/uL (0.0-0.1) Nucleated RBC Absolute Count (auto) 0.00 K/uL Sodium Level 137 mmol/L (137-145) Potassium Level 3.7 mmol/L (3.5-5.0) Chloride Level 102 mmol/L (98-107) Carbon Dioxide Level 25 mmol/L (22-31) Blood Urea Nitrogen 11 mg/dl (7-18) Creatinine 0.60 mg/dl (0.52-1.04) Glomerular Filtration Rate Calc > 60.0 Random Glucose 90 mg/dl (75-110) Calcium Level 9.4 mg/dl (8.4-10.2) Total Bilirubin 0.4 mg/dl (0.2-1.3) Aspartate Amino Transf (AST/SGOT) 94 U/L (0-35) Alanine Aminotransferase (ALT/SGPT) 67 U/L (0-56) Alkaline Phosphatase 77 U/L (0-126) Total Protein 6.3 g/dl (6.3-8.2) Albumin 3.7 g/dl (3.5-5.0) Vitamin B12 Level 177 pg/mL (180-914) Vitamin D 25-Hydroxy 19 ng/ml (30-100) Folate 21.9 ng/mL (>=5.9) Thyroid Stimulating Hormone (TSH) 1.48 uIU/ml (0.46-4.68) Free Thyroxine 1.41 ng/dl (0.78-2.19) Free Triiodothyronine 2.9 pg/mL (2.4-4.2) Chemistry Test 03/28/18 00:00 03/29/18 00:00 03/29/18 11:41 Urine HCG, Qualitative Negative (NEGATIVE) Urine Color Yellow Urine Clarity Turbid Urine pH 5.0 pH (4.8-9.5) Urine Specific [place] 1.029 Urine Protein Negative mg/dL (NEGATIVE) Urine Glucose (UA) Negative mg/dL (NEGATIVE) Urine Ketones Negative mg/dL (NEGATIVE) Urine Blood Moderate (NEGATIVE) Urine Nitrite Negative (NEGATIVE) Urine Bilirubin Negative (NEGATIVE) Urine Urobilinogen 2.0 mg/dL (0.2-1.9) Urine Leukocyte Esterase Small (NEGATIVE) Urine RBC 4 /HPF (0-2/HPF) Urine WBC 1 /HPF (0-5/HPF) Urine Squamous Epithelial Cells Many /LPF (</=FEW) Urine Bacteria Negative /HPF (NONE-FEW) Urine Mucus Few /HPF (NONE-FEW) White Blood Count 11.6 k/uL (4.5-11.0) Red Blood Count 4.50 M/uL (4.17-5.56) Hemoglobin 14.1 g/dL (12.0-16.0) Hematocrit 41.4 % (34.0-47.0) Mean Corpuscular Volume 92.0 fL (80.0-96.0) Mean Corpuscular Hemoglobin 31.4 pg (26.0-33.0) Mean Corpuscular Hemoglobin Concent 34.1 g/dL (32.0-36.0) Red Cell Distribution Width 13.2 % (11.5-14.5) Platelet Count 321 K/uL (150-450) Mean Platelet Volume 7.8 fL (7.2-11.1) Neutrophils (%) (Auto) 76.0 % (39.4-72.5) Lymphocytes (%) (Auto) 15.2 % (17.6-49.6) Monocytes (%) (Auto) 6.7 % (4.1-12.4) Eosinophils (%) (Auto) 1.4 % (0.4-6.7) Basophils (%) (Auto) 0.7 % (0.3-1.4) Nucleated RBC Relative Count (auto) 0.0 /100WBC Neutrophils # (Auto) 8.8 K/uL (2.0-7.4) Lymphocytes # (Auto) 1.8 K/uL (1.3-3.6) Monocytes # (Auto) 0.8 K/uL (0.3-1.0) Eosinophils # (Auto) 0.2 K/uL (0.0-0.5) Basophils # (Auto) 0.1 K/uL (0.0-0.1) Nucleated RBC Absolute Count (auto) 0.00 K/uL Glomerular Filtration Rate Calc > 60.0 Calcium Level 9.4 mg/dl (8.4-10.2) Total Bilirubin 0.4 mg/dl (0.2-1.3) Aspartate Amino Transf (AST/SGOT) 94 U/L (0-35) Alanine Aminotransferase (ALT/SGPT) 67 U/L (0-56) Alkaline Phosphatase 77 U/L (0-126) Total Protein 6.3 g/dl (6.3-8.2) Albumin 3.7 g/dl (3.5-5.0) Vitamin B12 Level 177 pg/mL (180-914) Vitamin D 25-Hydroxy 19 ng/ml (30-100) Folate 21.9 ng/mL (>=5.9) Thyroid Stimulating Hormone (TSH) 1.48 uIU/ml (0.46-4.68) Free Thyroxine 1.41 ng/dl (0.78-2.19) Free Triiodothyronine 2.9 pg/mL (2.4-4.2) Urinalysis Test 03/28/18 00:00 03/29/18 00:00 Urine HCG, Qualitative Negative (NEGATIVE) Urine Color Yellow Urine Clarity Turbid Urine pH 5.0 pH (4.8-9.5) Urine Specific [place] 1.029 Urine Protein Negative mg/dL (NEGATIVE) Urine Glucose (UA) Negative mg/dL (NEGATIVE) Urine Ketones Negative mg/dL (NEGATIVE) Urine Blood Moderate (NEGATIVE) Urine Nitrite Negative (NEGATIVE) Urine Bilirubin Negative (NEGATIVE) Urine Urobilinogen 2.0 mg/dL (0.2-1.9) Urine Leukocyte Esterase Small (NEGATIVE) Urine RBC 4 /HPF (0-2/HPF) Urine WBC 1 /HPF (0-5/HPF) Urine Squamous Epithelial Cells Many /LPF (</=FEW) Urine Bacteria Negative /HPF (NONE-FEW) Urine Mucus Few /HPF (NONE-FEW) SHALINI MARIE MD Apr 04, 2018 11:57
[2018-04-04 12:56] VITALS: BP 114/72
[2018-04-04] MEDS: DIAZEPAM 5 MG TAB PO SCH (21:20)
[2018-04-04] MEDS: TOPIRAMATE 25 MG TAB PO SCH (21:20)
[2018-04-04 22:44] VITALS: BP 125/87
[2018-04-05 05:58] VITALS: BP 118/78
[2018-04-05] MEDS: MULTIVITAMINS TAB PO SCH (08:11)
[2018-04-05] MEDS: DOCUSATE SODIUM 100 MG CAP PO SCH ×2 (08:11→21:49)
[2018-04-05] MEDS: CHOLECALCIFEROL 1000 UNIT TAB PO SCH (08:11)
[2018-04-05] MEDS: buPROPion SR 150 MG TABCR PO SCH (08:11)
[2018-04-05] MEDS: FOLIC ACID/CYANOCOB/PYRIDOXINE PO SCH (08:11)
[2018-04-05] MEDS: LIOTHYRONINE SODIUM 5 MCG TAB PO SCH (08:11)
--- NOTE | 2018-04-05 11:49 | BHS Progress Note ---
[facility] - Subjective Progress Notes Subjective Patient remains cooperative on the unit, but vested in the sick role. Continues with various complaints. Remains easily to redirect behaviorally, will continue to explore any potential medication changes. Sleep is intact and appetite good. No other concerns. Suicidal Ideation: None Homicidal Ideation: None S - Objective Physical Exam Vital Signs Vital Signs Date Time Temp Pulse Resp B/P (MAP) Pulse Ox O2 Delivery O2 Flow Rate FiO2 04/05/18 05:58 98.4 115 15 118/78 (91) 96 Room Air Hematology Test 03/28/18 00:00 03/29/18 00:00 03/29/18 11:41 Urine HCG, Qualitative Negative (NEGATIVE) Urine Color Yellow Urine Clarity Turbid Urine pH 5.0 pH (4.8-9.5) Urine Specific [place] 1.029 Urine Protein Negative mg/dL (NEGATIVE) Urine Glucose (UA) Negative mg/dL (NEGATIVE) Urine Ketones Negative mg/dL (NEGATIVE) Urine Blood Moderate (NEGATIVE) Urine Nitrite Negative (NEGATIVE) Urine Bilirubin Negative (NEGATIVE) Urine Urobilinogen 2.0 mg/dL (0.2-1.9) Urine Leukocyte Esterase Small (NEGATIVE) Urine RBC 4 /HPF (0-2/HPF) Urine WBC 1 /HPF (0-5/HPF) Urine Squamous Epithelial Cells Many /LPF (</=FEW) Urine Bacteria Negative /HPF (NONE-FEW) Urine Mucus Few /HPF (NONE-FEW) Red Blood Count 4.50 M/uL (4.17-5.56) Mean Corpuscular Volume 92.0 fL (80.0-96.0) Mean Corpuscular Hemoglobin 31.4 pg (26.0-33.0) Mean Corpuscular Hemoglobin Concent 34.1 g/dL (32.0-36.0) Red Cell Distribution Width 13.2 % (11.5-14.5) Mean Platelet Volume 7.8 fL (7.2-11.1) Neutrophils (%) (Auto) 76.0 % (39.4-72.5) Lymphocytes (%) (Auto) 15.2 % (17.6-49.6) Monocytes (%) (Auto) 6.7 % (4.1-12.4) Eosinophils (%) (Auto) 1.4 % (0.4-6.7) Basophils (%) (Auto) 0.7 % (0.3-1.4) Nucleated RBC Relative Count (auto) 0.0 /100WBC Neutrophils # (Auto) 8.8 K/uL (2.0-7.4) Lymphocytes # (Auto) 1.8 K/uL (1.3-3.6) Monocytes # (Auto) 0.8 K/uL (0.3-1.0) Eosinophils # (Auto) 0.2 K/uL (0.0-0.5) Basophils # (Auto) 0.1 K/uL (0.0-0.1) Nucleated RBC Absolute Count (auto) 0.00 K/uL Sodium Level 137 mmol/L (137-145) Potassium Level 3.7 mmol/L (3.5-5.0) Chloride Level 102 mmol/L (98-107) Carbon Dioxide Level 25 mmol/L (22-31) Blood Urea Nitrogen 11 mg/dl (7-18) Creatinine 0.60 mg/dl (0.52-1.04) Glomerular Filtration Rate Calc > 60.0 Random Glucose 90 mg/dl (75-110) Calcium Level 9.4 mg/dl (8.4-10.2) Total Bilirubin 0.4 mg/dl (0.2-1.3) Aspartate Amino Transf (AST/SGOT) 94 U/L (0-35) Alanine Aminotransferase (ALT/SGPT) 67 U/L (0-56) Alkaline Phosphatase 77 U/L (0-126) Total Protein 6.3 g/dl (6.3-8.2) Albumin 3.7 g/dl (3.5-5.0) Vitamin B12 Level 177 pg/mL (180-914) Vitamin D 25-Hydroxy 19 ng/ml (30-100) Folate 21.9 ng/mL (>=5.9) Thyroid Stimulating Hormone (TSH) 1.48 uIU/ml (0.46-4.68) Free Thyroxine 1.41 ng/dl (0.78-2.19) Free Triiodothyronine 2.9 pg/mL (2.4-4.2) Chemistry Test 03/28/18 00:00 03/29/18 00:00 03/29/18 11:41 Urine HCG, Qualitative Negative (NEGATIVE) Urine Color Yellow Urine Clarity Turbid Urine pH 5.0 pH (4.8-9.5) Urine Specific [place] 1.029 Urine Protein Negative mg/dL (NEGATIVE) Urine Glucose (UA) Negative mg/dL (NEGATIVE) Urine Ketones Negative mg/dL (NEGATIVE) Urine Blood Moderate (NEGATIVE) Urine Nitrite Negative (NEGATIVE) Urine Bilirubin Negative (NEGATIVE) Urine Urobilinogen 2.0 mg/dL (0.2-1.9) Urine Leukocyte Esterase Small (NEGATIVE) Urine RBC 4 /HPF (0-2/HPF) Urine WBC 1 /HPF (0-5/HPF) Urine Squamous Epithelial Cells Many /LPF (</=FEW) Urine Bacteria Negative /HPF (NONE-FEW) Urine Mucus Few /HPF (NONE-FEW) White Blood Count 11.6 k/uL (4.5-11.0) Red Blood Count 4.50 M/uL (4.17-5.56) Hemoglobin 14.1 g/dL (12.0-16.0) Hematocrit 41.4 % (34.0-47.0) Mean Corpuscular Volume 92.0 fL (80.0-96.0) Mean Corpuscular Hemoglobin 31.4 pg (26.0-33.0) Mean Corpuscular Hemoglobin Concent 34.1 g/dL (32.0-36.0) Red Cell Distribution Width 13.2 % (11.5-14.5) Platelet Count 321 K/uL (150-450) Mean Platelet Volume 7.8 fL (7.2-11.1) Neutrophils (%) (Auto) 76.0 % (39.4-72.5) Lymphocytes (%) (Auto) 15.2 % (17.6-49.6) Monocytes (%) (Auto) 6.7 % (4.1-12.4) Eosinophils (%) (Auto) 1.4 % (0.4-6.7) Basophils (%) (Auto) 0.7 % (0.3-1.4) Nucleated RBC Relative Count (auto) 0.0 /100WBC Neutrophils # (Auto) 8.8 K/uL (2.0-7.4) Lymphocytes # (Auto) 1.8 K/uL (1.3-3.6) Monocytes # (Auto) 0.8 K/uL (0.3-1.0) Eosinophils # (Auto) 0.2 K/uL (0.0-0.5) Basophils # (Auto) 0.1 K/uL (0.0-0.1) Nucleated RBC Absolute Count (auto) 0.00 K/uL Glomerular Filtration Rate Calc > 60.0 Calcium Level 9.4 mg/dl (8.4-10.2) Total Bilirubin 0.4 mg/dl (0.2-1.3) Aspartate Amino Transf (AST/SGOT) 94 U/L (0-35) Alanine Aminotransferase (ALT/SGPT) 67 U/L (0-56) Alkaline Phosphatase 77 U/L (0-126) Total Protein 6.3 g/dl (6.3-8.2) Albumin 3.7 g/dl (3.5-5.0) Vitamin B12 Level 177 pg/mL (180-914) Vitamin D 25-Hydroxy 19 ng/ml (30-100) Folate 21.9 ng/mL (>=5.9) Thyroid Stimulating Hormone (TSH) 1.48 uIU/ml (0.46-4.68) Free Thyroxine 1.41 ng/dl (0.78-2.19) Free Triiodothyronine 2.9 pg/mL (2.4-4.2) Urinalysis Test 03/28/18 00:00 03/29/18 00:00 Urine HCG, Qualitative Negative (NEGATIVE) Urine Color Yellow Urine Clarity Turbid Urine pH 5.0 pH (4.8-9.5) Urine Specific [place] 1.029 Urine Protein Negative mg/dL (NEGATIVE) Urine Glucose (UA) Negative mg/dL (NEGATIVE) Urine Ketones Negative mg/dL (NEGATIVE) Urine Blood Moderate (NEGATIVE) Urine Nitrite Negative (NEGATIVE) Urine Bilirubin Negative (NEGATIVE) Urine Urobilinogen 2.0 mg/dL (0.2-1.9) Urine Leukocyte Esterase Small (NEGATIVE) Urine RBC 4 /HPF (0-2/HPF) Urine WBC 1 /HPF (0-5/HPF) Urine Squamous Epithelial Cells Many /LPF (</=FEW) Urine Bacteria Negative /HPF (NONE-FEW) Urine Mucus Few /HPF (NONE-FEW) Muscle Strength and Tone: WNL Gait and Station: Steady (slowed unless prompted to accelerate. ) [facility] Medications Reviewed: Side Effects, Benefits of Medication, Risks Allergies Reviewed: Yes Mental Status Exam General Appearance: Casual, Well Groomed, Good Eye Contact (improved), Cooperative, Polite, Good Interaction; No Tearful; Psychomotor Retardation (ongoing), Bizarre Mannerisms (posturing and gait,); No Tics Speech: Clear, Normal Rate, Normal Volume (quiet at times), Normal Tone, D elayed (at times) Mood: Dysthmic/Depressed (some improvement. ) Affect: Calm; No Sad; Flat (at times); No Tearful, No Anxious, No Agitated Thought Process: Goal Directed ("I want to go home"); No Loose Associations, No Flight of Ideas Thought Content: No Suicidal Ideation, No Homicidal Ideation, No Delusions, No Auditory Halllucinations, No Visual Hallucinations, No Thought Broadcasting, No Ideas of Reference, No Obsessions, No Compulsions Sensorium: Clear Cognition: Alert & Oriented-Person, Alert & Oriented-Place, Alert & Oriented- Time, Dbjbn-Dvhfnsnb-Fkihfmkui (partially) Memory: Immediate, Recent, Remote Intelligence: Below Average Insight Judgment: Poor (limited by cognition, and current symptoms. 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 Last Edited By: Shalini Marie on Apr 02, 2018 08:08 Status: Chronic Condition 1. continue treatment. 2. explore medication increase. SHALINI MARIE MD Apr 05, 2018 11:49
[2018-04-05 14:32] VITALS: BP 120/76
[2018-04-05 21:00] VITALS: BP 115/85
[2018-04-05] MEDS: TOPIRAMATE 25 MG TAB PO SCH (21:49)
[2018-04-05] MEDS: DIAZEPAM 5 MG TAB PO SCH (21:49)
[2018-04-06 06:23] VITALS: BP 118/68
[2018-04-06] MEDS: LIOTHYRONINE SODIUM 5 MCG TAB PO SCH (08:00)
[2018-04-06] MEDS: DOCUSATE SODIUM 100 MG CAP PO SCH ×2 (08:00→21:07)
[2018-04-06] MEDS: FOLIC ACID/CYANOCOB/PYRIDOXINE PO SCH (08:00)
[2018-04-06] MEDS: buPROPion SR 150 MG TABCR PO SCH (08:01)
[2018-04-06] MEDS: MULTIVITAMINS TAB PO SCH (08:01)
[2018-04-06] MEDS: CHOLECALCIFEROL 1000 UNIT TAB PO SCH (08:01)
--- NOTE | 2018-04-06 11:34 | BHS Progress Note ---
S - Subjective Progress Notes Subjective Patient continues to make improvements overall, noted to interact well with other patients and staff. Sleep study scheduled, mood okay today. No other concerns. Suicidal Ideation: None Homicidal Ideation: None S - Objective Physical Exam Vital Signs Hematology Test 03/28/18 00:00 03/29/18 00:00 03/29/18 11:41 Urine HCG, Qualitative Negative (NEGATIVE) Urine Color Yellow Urine Clarity Turbid Urine pH 5.0 pH (4.8-9.5) Urine Specific [place] 1.029 Urine Protein Negative mg/dL (NEGATIVE) Urine Glucose (UA) Negative mg/dL (NEGATIVE) Urine Ketones Negative mg/dL (NEGATIVE) Urine Blood Moderate (NEGATIVE) Urine Nitrite Negative (NEGATIVE) Urine Bilirubin Negative (NEGATIVE) Urine Urobilinogen 2.0 mg/dL (0.2-1.9) Urine Leukocyte Esterase Small (NEGATIVE) Urine RBC 4 /HPF (0-2/HPF) Urine WBC 1 /HPF (0-5/HPF) Urine Squamous Epithelial Cells Many /LPF (</=FEW) Urine Bacteria Negative /HPF (NONE-FEW) Urine Mucus Few /HPF (NONE-FEW) Red Blood Count 4.50 M/uL (4.17-5.56) Mean Corpuscular Volume 92.0 fL (80.0-96.0) Mean Corpuscular Hemoglobin 31.4 pg (26.0-33.0) Mean Corpuscular Hemoglobin Concent 34.1 g/dL (32.0-36.0) Red Cell Distribution Width 13.2 % (11.5-14.5) Mean Platelet Volume 7.8 fL (7.2-11.1) Neutrophils (%) (Auto) 76.0 % (39.4-72.5) Lymphocytes (%) (Auto) 15.2 % (17.6-49.6) Monocytes (%) (Auto) 6.7 % (4.1-12.4) Eosinophils (%) (Auto) 1.4 % (0.4-6.7) Basophils (%) (Auto) 0.7 % (0.3-1.4) Nucleated RBC Relative Count (auto) 0.0 /100WBC Neutrophils # (Auto) 8.8 K/uL (2.0-7.4) Lymphocytes # (Auto) 1.8 K/uL (1.3-3.6) Monocytes # (Auto) 0.8 K/uL (0.3-1.0) Eosinophils # (Auto) 0.2 K/uL (0.0-0.5) Basophils # (Auto) 0.1 K/uL (0.0-0.1) Nucleated RBC Absolute Count (auto) 0.00 K/uL Sodium Level 137 mmol/L (137-145) Potassium Level 3.7 mmol/L (3.5-5.0) Chloride Level 102 mmol/L (98-107) Carbon Dioxide Level 25 mmol/L (22-31) Blood Urea Nitrogen 11 mg/dl (7-18) Creatinine 0.60 mg/dl (0.52-1.04) Glomerular Filtration Rate Calc > 60.0 Random Glucose 90 mg/dl (75-110) Calcium Level 9.4 mg/dl (8.4-10.2) Total Bilirubin 0.4 mg/dl (0.2-1.3) Aspartate Amino Transf (AST/SGOT) 94 U/L (0-35) Alanine Aminotransferase (ALT/SGPT) 67 U/L (0-56) Alkaline Phosphatase 77 U/L (0-126) Total Protein 6.3 g/dl (6.3-8.2) Albumin 3.7 g/dl (3.5-5.0) Vitamin B12 Level 177 pg/mL (180-914) Vitamin D 25-Hydroxy 19 ng/ml (30-100) Folate 21.9 ng/mL (>=5.9) Thyroid Stimulating Hormone (TSH) 1.48 uIU/ml (0.46-4.68) Free Thyroxine 1.41 ng/dl (0.78-2.19) Free Triiodothyronine 2.9 pg/mL (2.4-4.2) Chemistry Test 03/28/18 00:00 03/29/18 00:00 03/29/18 11:41 Urine HCG, Qualitative Negative (NEGATIVE) Urine Color Yellow Urine Clarity Turbid Urine pH 5.0 pH (4.8-9.5) Urine Specific [place] 1.029 Urine Protein Negative mg/dL (NEGATIVE) Urine Glucose (UA) Negative mg/dL (NEGATIVE) Urine Ketones Negative mg/dL (NEGATIVE) Urine Blood Moderate (NEGATIVE) Urine Nitrite Negative (NEGATIVE) Urine Bilirubin Negative (NEGATIVE) Urine Urobilinogen 2.0 mg/dL (0.2-1.9) Urine Leukocyte Esterase Small (NEGATIVE) Urine RBC 4 /HPF (0-2/HPF) Urine WBC 1 /HPF (0-5/HPF) Urine Squamous Epithelial Cells Many /LPF (</=FEW) Urine Bacteria Negative /HPF (NONE-FEW) Urine Mucus Few /HPF (NONE-FEW) White Blood Count 11.6 k/uL (4.5-11.0) Red Blood Count 4.50 M/uL (4.17-5.56) Hemoglobin 14.1 g/dL (12.0-16.0) Hematocrit 41.4 % (34.0-47.0) Mean Corpuscular Volume 92.0 fL (80.0-96.0) Mean Corpuscular Hemoglobin 31.4 pg (26.0-33.0) Mean Corpuscular Hemoglobin Concent 34.1 g/dL (32.0-36.0) Red Cell Distribution Width 13.2 % (11.5-14.5) Platelet Count 321 K/uL (150-450) Mean Platelet Volume 7.8 fL (7.2-11.1) Neutrophils (%) (Auto) 76.0 % (39.4-72.5) Lymphocytes (%) (Auto) 15.2 % (17.6-49.6) Monocytes (%) (Auto) 6.7 % (4.1-12.4) Eosinophils (%) (Auto) 1.4 % (0.4-6.7) Basophils (%) (Auto) 0.7 % (0.3-1.4) Nucleated RBC Relative Count (auto) 0.0 /100WBC Neutrophils # (Auto) 8.8 K/uL (2.0-7.4) Lymphocytes # (Auto) 1.8 K/uL (1.3-3.6) Monocytes # (Auto) 0.8 K/uL (0.3-1.0) Eosinophils # (Auto) 0.2 K/uL (0.0-0.5) Basophils # (Auto) 0.1 K/uL (0.0-0.1) Nucleated RBC Absolute Count (auto) 0.00 K/uL Glomerular Filtration Rate Calc > 60.0 Calcium Level 9.4 mg/dl (8.4-10.2) Total Bilirubin 0.4 mg/dl (0.2-1.3) Aspartate Amino Transf (AST/SGOT) 94 U/L (0-35) Alanine Aminotransferase (ALT/SGPT) 67 U/L (0-56) Alkaline Phosphatase 77 U/L (0-126) Total Protein 6.3 g/dl (6.3-8.2) Albumin 3.7 g/dl (3.5-5.0) Vitamin B12 Level 177 pg/mL (180-914) Vitamin D 25-Hydroxy 19 ng/ml (30-100) Folate 21.9 ng/mL (>=5.9) Thyroid Stimulating Hormone (TSH) 1.48 uIU/ml (0.46-4.68) Free Thyroxine 1.41 ng/dl (0.78-2.19) Free Triiodothyronine 2.9 pg/mL (2.4-4.2) Urinalysis Test 03/28/18 00:00 03/29/18 00:00 Urine HCG, Qualitative Negative (NEGATIVE) Urine Color Yellow Urine Clarity Turbid Urine pH 5.0 pH (4.8-9.5) Urine Specific [place] 1.029 Urine Protein Negative mg/dL (NEGATIVE) Urine Glucose (UA) Negative mg/dL (NEGATIVE) Urine Ketones Negative mg/dL (NEGATIVE) Urine Blood Moderate (NEGATIVE) Urine Nitrite Negative (NEGATIVE) Urine Bilirubin Negative (NEGATIVE) Urine Urobilinogen 2.0 mg/dL (0.2-1.9) Urine Leukocyte Esterase Small (NEGATIVE) Urine RBC 4 /HPF (0-2/HPF) Urine WBC 1 /HPF (0-5/HPF) Urine Squamous Epithelial Cells Many /LPF (</=FEW) Urine Bacteria Negative /HPF (NONE-FEW) Urine Mucus Few /HPF (NONE-FEW) Vital Signs Date Time Temp Pulse Resp B/P (MAP) Pulse Ox O2 Delivery O2 Flow Rate FiO2 04/06/18 06:23 98.2 118 118/68 (85) 98 Room Air 04/05/18 05:58 15 Muscle Strength and Tone: WNL Gait and Station: Steady (slowed unless prompted to accelerate. ) [facility] Medications Reviewed: Side Effects, Benefits of Medication, Risks Allergies Reviewed: Yes Mental Status Exam General Appearance: Casual, Well Groomed, Good Eye Contact (improved), Cooperative, Polite, Good Interaction; No Tearful; Psychomotor Retardation (ongoing), Bizarre Mannerisms (posturing and gait, at times, but easily redirected); No Tics Speech: Clear, Normal Rate, Normal Volume (quiet at times), Normal Tone, Delayed (at times) Mood: Dysthmic/Depressed (some improvement. ) Affect: Calm; No Sad; Flat (at times); No Tearful, No Anxious, No Agitated Thought Process: Goal Directed ("I want to go home"); No Loose Associations, No Flight of Ideas Thought Content: No Suicidal Ideation, No Homicidal Ideation, No Delusions, No Auditory Halllucinations, No Visual Hallucinations, No Thought Broadcasting, No Ideas of Reference, No Obsessions, No Compulsions Sensorium: Clear Cognition: Alert & Oriented-Person, Alert & Oriented-Place, Alert & Oriented- Time, [id number] (partially) Memory: Immediate, Recent, Remote Intelligence: Below Average Insight Judgment: Poor (limited by cognition, and current symptoms. 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 Last Edited By: Shalini Marie on Apr 02, 2018 08:08 Status: Chronic Condition 1. continue treatment. 2. no medication changes. SHALINI MARIE MD Apr 06, 2018 11:34
[2018-04-06 11:43] VITALS: BP 108/72
[2018-04-06] MEDS: DIAZEPAM 5 MG TAB PO SCH (21:06)
[2018-04-06] MEDS: TOPIRAMATE 25 MG TAB PO SCH (21:07)
[2018-04-07 02:00] VITALS: BP 110/72
[2018-04-07] MEDS: IBUPROFEN 600 MG TAB PO PRN (04:17)
[2018-04-07] MEDS: DOCUSATE SODIUM 100 MG CAP PO SCH ×2 (08:06→21:54)
[2018-04-07] MEDS: FOLIC ACID/CYANOCOB/PYRIDOXINE PO SCH (08:07)
[2018-04-07] MEDS: buPROPion SR 150 MG TABCR PO SCH (08:07)
[2018-04-07] MEDS: LIOTHYRONINE SODIUM 5 MCG TAB PO SCH (08:07)
[2018-04-07] MEDS: CHOLECALCIFEROL 1000 UNIT TAB PO SCH (08:07)
[2018-04-07] MEDS: MULTIVITAMINS TAB PO SCH (08:07)
--- NOTE | 2018-04-07 10:49 | BHS Progress Note ---
BHS - Subjective Progress Notes Subjective Patient continues to do well on the unit, and noted to be very friendly and social with other patients, patient quickly regresses into sick role behaviors. Patient very logical in discussion about future endeavors today. No other concerns. Will continue treatment, no medications changes. Therapy to focus on avoidance of sick role behaviors, and growth and development. Suicidal Ideation: None Homicidal Ideation: None S - Objective Physical Exam Vital Signs Hematology Test 03/28/18 00:00 03/29/18 00:00 03/29/18 11:41 Urine HCG, Qualitative Negative (NEGATIVE) Urine Color Yellow Urine Clarity Turbid Urine pH 5.0 pH (4.8-9.5) Urine Specific [place] 1.029 Urine Protein Negative mg/dL (NEGATIVE) Urine Glucose (UA) Negative mg/dL (NEGATIVE) Urine Ketones Negative mg/dL (NEGATIVE) Urine Blood Moderate (NEGATIVE) Urine Nitrite Negative (NEGATIVE) Urine Bilirubin Negative (NEGATIVE) Urine Urobilinogen 2.0 mg/dL (0.2-1.9) Urine Leukocyte Esterase Small (NEGATIVE) Urine RBC 4 /HPF (0-2/HPF) Urine WBC 1 /HPF (0-5/HPF) Urine Squamous Epithelial Cells Many /LPF (</=FEW) Urine Bacteria Negative /HPF (NONE-FEW) Urine Mucus Few /HPF (NONE-FEW) Red Blood Count 4.50 M/uL (4.17-5.56) Mean Corpuscular Volume 92.0 fL (80.0-96.0) Mean Corpuscular Hemoglobin 31.4 pg (26.0-33.0) Mean Corpuscular Hemoglobin Concent 34.1 g/dL (32.0-36.0) Red Cell Distribution Width 13.2 % (11.5-14.5) Mean Platelet Volume 7.8 fL (7.2-11.1) Neutrophils (%) (Auto) 76.0 % (39.4-72.5) Lymphocytes (%) (Auto) 15.2 % (17.6-49.6) Monocytes (%) (Auto) 6.7 % (4.1-12.4) Eosinophils (%) (Auto) 1.4 % (0.4-6.7) Basophils (%) (Auto) 0.7 % (0.3-1.4) Nucleated RBC Relative Count (auto) 0.0 /100WBC Neutrophils # (Auto) 8.8 K/uL (2.0-7.4) Lymphocytes # (Auto) 1.8 K/uL (1.3-3.6) Monocytes # (Auto) 0.8 K/uL (0.3-1.0) Eosinophils # (Auto) 0.2 K/uL (0.0-0.5) Basophils # (Auto) 0.1 K/uL (0.0-0.1) Nucleated RBC Absolute Count (auto) 0.00 K/uL Sodium Level 137 mmol/L (137-145) Potassium Level 3.7 mmol/L (3.5-5.0) Chloride Level 102 mmol/L (98-107) Carbon Dioxide Level 25 mmol/L (22-31) Blood Urea Nitrogen 11 mg/dl (7-18) Creatinine 0.60 mg/dl (0.52-1.04) Glomerular Filtration Rate Calc > 60.0 Random Glucose 90 mg/dl (75-110) Calcium Level 9.4 mg/dl (8.4-10.2) Total Bilirubin 0.4 mg/dl (0.2-1.3) Aspartate Amino Transf (AST/SGOT) 94 U/L (0-35) Alanine Aminotransferase (ALT/SGPT) 67 U/L (0-56) Alkaline Phosphatase 77 U/L (0-126) Total Protein 6.3 g/dl (6.3-8.2) Albumin 3.7 g/dl (3.5-5.0) Vitamin B12 Level 177 pg/mL (180-914) Vitamin D 25-Hydroxy 19 ng/ml (30-100) Folate 21.9 ng/mL (>=5.9) Thyroid Stimulating Hormone (TSH) 1.48 uIU/ml (0.46-4.68) Free Thyroxine 1.41 ng/dl (0.78-2.19) Free Triiodothyronine 2.9 pg/mL (2.4-4.2) Chemistry Test 03/28/18 00:00 03/29/18 00:00 03/29/18 11:41 Urine HCG, Qualitative Negative (NEGATIVE) Urine Color Yellow Urine Clarity Turbid Urine pH 5.0 pH (4.8-9.5) Urine Specific [place] 1.029 Urine Protein Negative mg/dL (NEGATIVE) Urine Glucose (UA) Negative mg/dL (NEGATIVE) Urine Ketones Negative mg/dL (NEGATIVE) Urine Blood Moderate (NEGATIVE) Urine Nitrite Negative (NEGATIVE) Urine Bilirubin Negative (NEGATIVE) Urine Urobilinogen 2.0 mg/dL (0.2-1.9) Urine Leukocyte Esterase Small (NEGATIVE) Urine RBC 4 /HPF (0-2/HPF) Urine WBC 1 /HPF (0-5/HPF) Urine Squamous Epithelial Cells Many /LPF (</=FEW) Urine Bacteria Negative /HPF (NONE-FEW) Urine Mucus Few /HPF (NONE-FEW) White Blood Count 11.6 k/uL (4.5-11.0) Red Blood Count 4.50 M/uL (4.17-5.56) Hemoglobin 14.1 g/dL (12.0-16.0) Hematocrit 41.4 % (34.0-47.0) Mean Corpuscular Volume 92.0 fL (80.0-96.0) Mean Corpuscular Hemoglobin 31.4 pg (26.0-33.0) Mean Corpuscular Hemoglobin Concent 34.1 g/dL (32.0-36.0) Red Cell Distribution Width 13.2 % (11.5-14.5) Platelet Count 321 K/uL (150-450) Mean Platelet Volume 7.8 fL (7.2-11.1) Neutrophils (%) (Auto) 76.0 % (39.4-72.5) Lymphocytes (%) (Auto) 15.2 % (17.6-49.6) Monocytes (%) (Auto) 6.7 % (4.1-12.4) Eosinophils (%) (Auto) 1.4 % (0.4-6.7) Basophils (%) (Auto) 0.7 % (0.3-1.4) Nucleated RBC Relative Count (auto) 0.0 /100WBC Neutrophils # (Auto) 8.8 K/uL (2.0-7.4) Lymphocytes # (Auto) 1.8 K/uL (1.3-3.6) Monocytes # (Auto) 0.8 K/uL (0.3-1.0) Eosinophils # (Auto) 0.2 K/uL (0.0-0.5) Basophils # (Auto) 0.1 K/uL (0.0-0.1) Nucleated RBC Absolute Count (auto) 0.00 K/uL Glomerular Filtration Rate Calc > 60.0 Calcium Level 9.4 mg/dl (8.4-10.2) Total Bilirubin 0.4 mg/dl (0.2-1.3) Aspartate Amino Transf (AST/SGOT) 94 U/L (0-35) Alanine Aminotransferase (ALT/SGPT) 67 U/L (0-56) Alkaline Phosphatase 77 U/L (0-126) Total Protein 6.3 g/dl (6.3-8.2) Albumin 3.7 g/dl (3.5-5.0) Vitamin B12 Level 177 pg/mL (180-914) Vitamin D 25-Hydroxy 19 ng/ml (30-100) Folate 21.9 ng/mL (>=5.9) Thyroid Stimulating Hormone (TSH) 1.48 uIU/ml (0.46-4.68) Free Thyroxine 1.41 ng/dl (0.78-2.19) Free Triiodothyronine 2.9 pg/mL (2.4-4.2) Urinalysis Test 03/28/18 00:00 03/29/18 00:00 Urine HCG, Qualitative Negative (NEGATIVE) Urine Color Yellow Urine Clarity Turbid Urine pH 5.0 pH (4.8-9.5) Urine Specific [place] 1.029 Urine Protein Negative mg/dL (NEGATIVE) Urine Glucose (UA) Negative mg/dL (NEGATIVE) Urine Ketones Negative mg/dL (NEGATIVE) Urine Blood Moderate (NEGATIVE) Urine Nitrite Negative (NEGATIVE) Urine Bilirubin Negative (NEGATIVE) Urine Urobilinogen 2.0 mg/dL (0.2-1.9) Urine Leukocyte Esterase Small (NEGATIVE) Urine RBC 4 /HPF (0-2/HPF) Urine WBC 1 /HPF (0-5/HPF) Urine Squamous Epithelial Cells Many /LPF (</=FEW) Urine Bacteria Negative /HPF (NONE-FEW) Urine Mucus Few /HPF (NONE-FEW) Vital Signs Date Time Temp Pulse Resp B/P (MAP) Pulse Ox O2 Delivery O2 Flow Rate FiO2 04/07/18 02:00 97.7 104 110/72 (85) 94 Room Air 04/06/18 11:43 18 Muscle Strength and Tone: WNL Gait and Station: Steady (slowed unless prompted to accelerate. ) [facility] Medications Reviewed: Side Effects, Benefits of Medication, Risks Allergies Reviewed: Yes Mental Status Exam General Appearance: Casual, Well Groomed, Good Eye Contact (improved), Cooperative, Polite, Good Interaction; No Tearful; Psychomotor Retardation (ongoing), Bizarre Mannerisms (posturing and gait, at times, but easily redirected); No Tics Speech: Clear, Normal Rate, Normal Volume (quiet at times), Normal Tone, Delayed (at times) Mood: Dysthmic/Depressed (some improvement. ) Affect: Calm; No Sad; Flat (at times); No Tearful, No Anxious, No Agitated Thought Process: Organized, Goal Directed ("I want to go home"); No Loose Associations, No Flight of Ideas Thought Content: No Suicidal Ideation, No Homicidal Ideation, No Delusions, No Auditory Halllucinations, No Visual Hallucinations, No Thought Broadcasting, No Ideas of Reference, No Obsessions, No Compulsions Sensorium: Clear Cognition: Alert & Oriented-Person, Alert & Oriented-Place, Alert & Oriented- Time, [id number]-[id number] (partially) Memory: Immediate, Recent, Remote Intelligence: Below Average Insight Judgment: Poor (limited by cognition, and current symptoms. some improvement. 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 Last Edited By: Shalini Marie on Apr 02, 2018 08:08 Status: Chronic Condition 1. continue treatment. 2. no medication changes. SHALINI MARIE MD Apr 07, 2018 10:49
[2018-04-07 10:55] VITALS: BP 102/72
[2018-04-07] MEDS: [UNRECOGNIZED DRUG - OTHER] TP PRN (14:34)
[2018-04-07] MEDS: CALAMINE TP PRN (14:34)
[2018-04-07 17:25] VITALS: BP 116/74
[2018-04-07] MEDS: TOPIRAMATE 25 MG TAB PO SCH (21:54)
[2018-04-07] MEDS: DIAZEPAM 5 MG TAB PO SCH (21:55)
[2018-04-08 05:34] VITALS: BP 109/85
[2018-04-08] MEDS: buPROPion SR 150 MG TABCR PO SCH (09:13)
[2018-04-08] MEDS: LIOTHYRONINE SODIUM 5 MCG TAB PO SCH (09:13)
[2018-04-08] MEDS: DOCUSATE SODIUM 100 MG CAP PO SCH ×2 (09:13→21:51)
[2018-04-08] MEDS: MULTIVITAMINS TAB PO SCH (09:13)
[2018-04-08] MEDS: CHOLECALCIFEROL 1000 UNIT TAB PO SCH (09:14)
[2018-04-08] MEDS: FOLIC ACID/CYANOCOB/PYRIDOXINE PO SCH (09:14)
--- NOTE | 2018-04-08 12:08 | BHS Progress Note ---
BHS - Subjective Progress Notes Subjective Patient remaining pleasant today, somewhat sad to see another patient depart, somatic symptoms of multiple ailments continue. Will focus on continued growth, no medication changes, no other complaints. Suicidal Ideation: None Homicidal Ideation: None [facility] - Objective Physical Exam Vital Signs Vital Signs Date Time Temp Pulse Resp B/P (MAP) Pulse Ox O2 Delivery O2 Flow Rate FiO2 04/08/18 05:34 97.5 130 109/85 (93) 96 Room Air 04/07/18 17:25 16 Hematology Test 03/28/18 00:00 03/29/18 00:00 03/29/18 11:41 Urine HCG, Qualitative Negative (NEGATIVE) Urine Color Yellow Urine Clarity Turbid Urine pH 5.0 pH (4.8-9.5) Urine Specific [place] 1.029 Urine Protein Negative mg/dL (NEGATIVE) Urine Glucose (UA) Negative mg/dL (NEGATIVE) Urine Ketones Negative mg/dL (NEGATIVE) Urine Blood Moderate (NEGATIVE) Urine Nitrite Negative (NEGATIVE) Urine Bilirubin Negative (NEGATIVE) Urine Urobilinogen 2.0 mg/dL (0.2-1.9) Urine Leukocyte Esterase Small (NEGATIVE) Urine RBC 4 /HPF (0-2/HPF) Urine WBC 1 /HPF (0-5/HPF) Urine Squamous Epithelial Cells Many /LPF (</=FEW) Urine Bacteria Negative /HPF (NONE-FEW) Urine Mucus Few /HPF (NONE-FEW) Red Blood Count 4.50 M/uL (4.17-5.56) Mean Corpuscular Volume 92.0 fL (80.0-96.0) Mean Corpuscular Hemoglobin 31.4 pg (26.0-33.0) Mean Corpuscular Hemoglobin Concent 34.1 g/dL (32.0-36.0) Red Cell Distribution Width 13.2 % (11.5-14.5) Mean Platelet Volume 7.8 fL (7.2-11.1) Neutrophils (%) (Auto) 76.0 % (39.4-72.5) Lymphocytes (%) (Auto) 15.2 % (17.6-49.6) Monocytes (%) (Auto) 6.7 % (4.1-12.4) Eosinophils (%) (Auto) 1.4 % (0.4-6.7) Basophils (%) (Auto) 0.7 % (0.3-1.4) Nucleated RBC Relative Count (auto) 0.0 /100WBC Neutrophils # (Auto) 8.8 K/uL (2.0-7.4) Lymphocytes # (Auto) 1.8 K/uL (1.3-3.6) Monocytes # (Auto) 0.8 K/uL (0.3-1.0) Eosinophils # (Auto) 0.2 K/uL (0.0-0.5) Basophils # (Auto) 0.1 K/uL (0.0-0.1) Nucleated RBC Absolute Count (auto) 0.00 K/uL Sodium Level 137 mmol/L (137-145) Potassium Level 3.7 mmol/L (3.5-5.0) Chloride Level 102 mmol/L (98-107) Carbon Dioxide Level 25 mmol/L (22-31) Blood Urea Nitrogen 11 mg/dl (7-18) Creatinine 0.60 mg/dl (0.52-1.04) Glomerular Filtration Rate Calc > 60.0 Random Glucose 90 mg/dl (75-110) Calcium Level 9.4 mg/dl (8.4-10.2) Total Bilirubin 0.4 mg/dl (0.2-1.3) Aspartate Amino Transf (AST/SGOT) 94 U/L (0-35) Alanine Aminotransferase (ALT/SGPT) 67 U/L (0-56) Alkaline Phosphatase 77 U/L (0-126) Total Protein 6.3 g/dl (6.3-8.2) Albumin 3.7 g/dl (3.5-5.0) Vitamin B12 Level 177 pg/mL (180-914) Vitamin D 25-Hydroxy 19 ng/ml (30-100) Folate 21.9 ng/mL (>=5.9) Thyroid Stimulating Hormone (TSH) 1.48 uIU/ml (0.46-4.68) Free Thyroxine 1.41 ng/dl (0.78-2.19) Free Triiodothyronine 2.9 pg/mL (2.4-4.2) Chemistry Test 03/28/18 00:00 03/29/18 00:00 03/29/18 11:41 Urine HCG, Qualitative Negative (NEGATIVE) Urine Color Yellow Urine Clarity Turbid Urine pH 5.0 pH (4.8-9.5) Urine Specific [place] 1.029 Urine Protein Negative mg/dL (NEGATIVE) Urine Glucose (UA) Negative mg/dL (NEGATIVE) Urine Ketones Negative mg/dL (NEGATIVE) Urine Blood Moderate (NEGATIVE) Urine Nitrite Negative (NEGATIVE) Urine Bilirubin Negative (NEGATIVE) Urine Urobilinogen 2.0 mg/dL (0.2-1.9) Urine Leukocyte Esterase Small (NEGATIVE) Urine RBC 4 /HPF (0-2/HPF) Urine WBC 1 /HPF (0-5/HPF) Urine Squamous Epithelial Cells Many /LPF (</=FEW) Urine Bacteria Negative /HPF (NONE-FEW) Urine Mucus Few /HPF (NONE-FEW) White Blood Count 11.6 k/uL (4.5-11.0) Red Blood Count 4.50 M/uL (4.17-5.56) Hemoglobin 14.1 g/dL (12.0-16.0) Hematocrit 41.4 % (34.0-47.0) Mean Corpuscular Volume 92.0 fL (80.0-96.0) Mean Corpuscular Hemoglobin 31.4 pg (26.0-33.0) Mean Corpuscular Hemoglobin Concent 34.1 g/dL (32.0-36.0) Red Cell Distribution Width 13.2 % (11.5-14.5) Platelet Count 321 K/uL (150-450) Mean Platelet Volume 7.8 fL (7.2-11.1) Neutrophils (%) (Auto) 76.0 % (39.4-72.5) Lymphocytes (%) (Auto) 15.2 % (17.6-49.6) Monocytes (%) (Auto) 6.7 % (4.1-12.4) Eosinophils (%) (Auto) 1.4 % (0.4-6.7) Basophils (%) (Auto) 0.7 % (0.3-1.4) Nucleated RBC Relative Count (auto) 0.0 /100WBC Neutrophils # (Auto) 8.8 K/uL (2.0-7.4) Lymphocytes # (Auto) 1.8 K/uL (1.3-3.6) Monocytes # (Auto) 0.8 K/uL (0.3-1.0) Eosinophils # (Auto) 0.2 K/uL (0.0-0.5) Basophils # (Auto) 0.1 K/uL (0.0-0.1) Nucleated RBC Absolute Count (auto) 0.00 K/uL Glomerular Filtration Rate Calc > 60.0 Calcium Level 9.4 mg/dl (8.4-10.2) Total Bilirubin 0.4 mg/dl (0.2-1.3) Aspartate Amino Transf (AST/SGOT) 94 U/L (0-35) Alanine Aminotransferase (ALT/SGPT) 67 U/L (0-56) Alkaline Phosphatase 77 U/L (0-126) Total Protein 6.3 g/dl (6.3-8.2) Albumin 3.7 g/dl (3.5-5.0) Vitamin B12 Level 177 pg/mL (180-914) Vitamin D 25-Hydroxy 19 ng/ml (30-100) Folate 21.9 ng/mL (>=5.9) Thyroid Stimulating Hormone (TSH) 1.48 uIU/ml (0.46-4.68) Free Thyroxine 1.41 ng/dl (0.78-2.19) Free Triiodothyronine 2.9 pg/mL (2.4-4.2) Urinalysis Test 03/28/18 00:00 03/29/18 00:00 Urine HCG, Qualitative Negative (NEGATIVE) Urine Color Yellow Urine Clarity Turbid Urine pH 5.0 pH (4.8-9.5) Urine Specific [place] 1.029 Urine Protein Negative mg/dL (NEGATIVE) Urine Glucose (UA) Negative mg/dL (NEGATIVE) Urine Ketones Negative mg/dL (NEGATIVE) Urine Blood Moderate (NEGATIVE) Urine Nitrite Negative (NEGATIVE) Urine Bilirubin Negative (NEGATIVE) Urine Urobilinogen 2.0 mg/dL (0.2-1.9) Urine Leukocyte Esterase Small (NEGATIVE) Urine RBC 4 /HPF (0-2/HPF) Urine WBC 1 /HPF (0-5/HPF) Urine Squamous Epithelial Cells Many /LPF (</=FEW) Urine Bacteria Negative /HPF (NONE-FEW) Urine Mucus Few /HPF (NONE-FEW) Muscle Strength and Tone: WNL Gait and Station: Steady (slowed unless prompted to accelerate. ) [facility] Medications Reviewed: Side Effects, Benefits of Medication, Risks Allergies Reviewed: Yes Mental Status Exam General Appearance: Casual, Well Groomed, Good Eye Contact (improved), Cooperative, Polite, Good Interaction; No Tearful; Psychomotor Retardation (ongoing), Bizarre Mannerisms (posturing and gait, at times, but easily redirected); No Tics Speech: Clear, Normal Rate, Normal Volume (quiet at times), Normal Tone, Amanda yed (at times) Mood: Dysthmic/Depressed (some improvement. ) Affect: Calm; No Sad; Flat (at times); No Tearful, No Anxious, No Agitated Thought Process: Organized, Goal Directed ("I want to go home"); No Loose Associations, No Flight of Ideas Thought Content: No Suicidal Ideation, No Homicidal Ideation, No Delusions, No Auditory Halllucinations, No Visual Hallucinations, No Thought Broadcasting, No Ideas of Reference, No Obsessions, No Compulsions Sensorium: Clear Cognition: Alert & Oriented-Person, Alert & Oriented-Place, Alert & Oriented- Time, [id number] (partially) Memory: Immediate, Recent, Remote Intelligence: Below Average Insight Judgment: Poor (limited by cognition, and current symptoms. some improvement. 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 Last Edited By: Shalini Marie on Apr 02, 2018 08:08 Status: Chronic Condition 1. continue treatment. 2. no medication changes. SHALINI MARIE MD Apr 08, 2018 12:08
[2018-04-08 12:40] VITALS: BP 110/70
[2018-04-08] MEDS: DIAZEPAM 5 MG TAB PO SCH (21:51)
[2018-04-08] MEDS: TOPIRAMATE 25 MG TAB PO SCH (21:51)
[2018-04-09 04:04] VITALS: BP 123/83
[2018-04-09] MEDS: MULTIVITAMINS TAB PO SCH (09:01)
[2018-04-09] MEDS: FOLIC ACID/CYANOCOB/PYRIDOXINE PO SCH (09:01)
[2018-04-09] MEDS: DOCUSATE SODIUM 100 MG CAP PO SCH ×2 (09:01→21:56)
[2018-04-09] MEDS: LIOTHYRONINE SODIUM 5 MCG TAB PO SCH (09:01)
[2018-04-09] MEDS: CHOLECALCIFEROL 1000 UNIT TAB PO SCH (09:01)
[2018-04-09] MEDS: buPROPion SR 150 MG TABCR PO SCH (09:01)
--- NOTE | 2018-04-09 11:49 | BHS Progress Note ---
BHS - Subjective Progress Notes Subjective Patient remains cooperative on the unit, continues to display and promote various somatic symptoms, "Last night was a rough night", Patient stating "I had muscle twitching". "My throat hurts". No other concerns. Suicidal Ideation: None Homicidal Ideation: None S - Objective Physical Exam Vital Signs Hematology Test 03/28/18 00:00 03/29/18 00:00 03/29/18 11:41 Urine HCG, Qualitative Negative (NEGATIVE) Urine Color Yellow Urine Clarity Turbid Urine pH 5.0 pH (4.8-9.5) Urine Specific [place] 1.029 Urine Protein Negative mg/dL (NEGATIVE) Urine Glucose (UA) Negative mg/dL (NEGATIVE) Urine Ketones Negative mg/dL (NEGATIVE) Urine Blood Moderate (NEGATIVE) Urine Nitrite Negative (NEGATIVE) Urine Bilirubin Negative (NEGATIVE) Urine Urobilinogen 2.0 mg/dL (0.2-1.9) Urine Leukocyte Esterase Small (NEGATIVE) Urine RBC 4 /HPF (0-2/HPF) Urine WBC 1 /HPF (0-5/HPF) Urine Squamous Epithelial Cells Many /LPF (</=FEW) Urine Bacteria Negative /HPF (NONE-FEW) Urine Mucus Few /HPF (NONE-FEW) Red Blood Count 4.50 M/uL (4.17-5.56) Mean Corpuscular Volume 92.0 fL (80.0-96.0) Mean Corpuscular Hemoglobin 31.4 pg (26.0-33.0) Mean Corpuscular Hemoglobin Concent 34.1 g/dL (32.0-36.0) Red Cell Distribution Width 13.2 % (11.5-14.5) Mean Platelet Volume 7.8 fL (7.2-11.1) Neutrophils (%) (Auto) 76.0 % (39.4-72.5) Lymphocytes (%) (Auto) 15.2 % (17.6-49.6) Monocytes (%) (Auto) 6.7 % (4.1-12.4) Eosinophils (%) (Auto) 1.4 % (0.4-6.7) Basophils (%) (Auto) 0.7 % (0.3-1.4) Nucleated RBC Relative Count (auto) 0.0 /100WBC Neutrophils # (Auto) 8.8 K/uL (2.0-7.4) Lymphocytes # (Auto) 1.8 K/uL (1.3-3.6) Monocytes # (Auto) 0.8 K/uL (0.3-1.0) Eosinophils # (Auto) 0.2 K/uL (0.0-0.5) Basophils # (Auto) 0.1 K/uL (0.0-0.1) Nucleated RBC Absolute Count (auto) 0.00 K/uL Sodium Level 137 mmol/L (137-145) Potassium Level 3.7 mmol/L (3.5-5.0) Chloride Level 102 mmol/L (98-107) Carbon Dioxide Level 25 mmol/L (22-31) Blood Urea Nitrogen 11 mg/dl (7-18) Creatinine 0.60 mg/dl (0.52-1.04) Glomerular Filtration Rate Calc > 60.0 Random Glucose 90 mg/dl (75-110) Calcium Level 9.4 mg/dl (8.4-10.2) Total Bilirubin 0.4 mg/dl (0.2-1.3) Aspartate Amino Transf (AST/SGOT) 94 U/L (0-35) Alanine Aminotransferase (ALT/SGPT) 67 U/L (0-56) Alkaline Phosphatase 77 U/L (0-126) Total Protein 6.3 g/dl (6.3-8.2) Albumin 3.7 g/dl (3.5-5.0) Vitamin B12 Level 177 pg/mL (180-914) Vitamin D 25-Hydroxy 19 ng/ml (30-100) Folate 21.9 ng/mL (>=5.9) Thyroid Stimulating Hormone (TSH) 1.48 uIU/ml (0.46-4.68) Free Thyroxine 1.41 ng/dl (0.78-2.19) Free Triiodothyronine 2.9 pg/mL (2.4-4.2) Chemistry Test 03/28/18 00:00 03/29/18 00:00 03/29/18 11:41 Urine HCG, Qualitative Negative (NEGATIVE) Urine Color Yellow Urine Clarity Turbid Urine pH 5.0 pH (4.8-9.5) Urine Specific [place] 1.029 Urine Protein Negative mg/dL (NEGATIVE) Urine Glucose (UA) Negative mg/dL (NEGATIVE) Urine Ketones Negative mg/dL (NEGATIVE) Urine Blood Moderate (NEGATIVE) Urine Nitrite Negative (NEGATIVE) Urine Bilirubin Negative (NEGATIVE) Urine Urobilinogen 2.0 mg/dL (0.2-1.9) Urine Leukocyte Esterase Small (NEGATIVE) Urine RBC 4 /HPF (0-2/HPF) Urine WBC 1 /HPF (0-5/HPF) Urine Squamous Epithelial Cells Many /LPF (</=FEW) Urine Bacteria Negative /HPF (NONE-FEW) Urine Mucus Few /HPF (NONE-FEW) White Blood Count 11.6 k/uL (4.5-11.0) Red Blood Count 4.50 M/uL (4.17-5.56) Hemoglobin 14.1 g/dL (12.0-16.0) Hematocrit 41.4 % (34.0-47.0) Mean Corpuscular Volume 92.0 fL (80.0-96.0) Mean Corpuscular Hemoglobin 31.4 pg (26.0-33.0) Mean Corpuscular Hemoglobin Concent 34.1 g/dL (32.0-36.0) Red Cell Distribution Width 13.2 % (11.5-14.5) Platelet Count 321 K/uL (150-450) Mean Platelet Volume 7.8 fL (7.2-11.1) Neutrophils (%) (Auto) 76.0 % (39.4-72.5) Lymphocytes (%) (Auto) 15.2 % (17.6-49.6) Monocytes (%) (Auto) 6.7 % (4.1-12.4) Eosinophils (%) (Auto) 1.4 % (0.4-6.7) Basophils (%) (Auto) 0.7 % (0.3-1.4) Nucleated RBC Relative Count (auto) 0.0 /100WBC Neutrophils # (Auto) 8.8 K/uL (2.0-7.4) Lymphocytes # (Auto) 1.8 K/uL (1.3-3.6) Monocytes # (Auto) 0.8 K/uL (0.3-1.0) Eosinophils # (Auto) 0.2 K/uL (0.0-0.5) Basophils # (Auto) 0.1 K/uL (0.0-0.1) Nucleated RBC Absolute Count (auto) 0.00 K/uL Glomerular Filtration Rate Calc > 60.0 Calcium Level 9.4 mg/dl (8.4-10.2) Total Bilirubin 0.4 mg/dl (0.2-1.3) Aspartate Amino Transf (AST/SGOT) 94 U/L (0-35) Alanine Aminotransferase (ALT/SGPT) 67 U/L (0-56) Alkaline Phosphatase 77 U/L (0-126) Total Protein 6.3 g/dl (6.3-8.2) Albumin 3.7 g/dl (3.5-5.0) Vitamin B12 Level 177 pg/mL (180-914) Vitamin D 25-Hydroxy 19 ng/ml (30-100) Folate 21.9 ng/mL (>=5.9) Thyroid Stimulating Hormone (TSH) 1.48 uIU/ml (0.46-4.68) Free Thyroxine 1.41 ng/dl (0.78-2.19) Free Triiodothyronine 2.9 pg/mL (2.4-4.2) Urinalysis Test 03/28/18 00:00 03/29/18 00:00 Urine HCG, Qualitative Negative (NEGATIVE) Urine Color Yellow Urine Clarity Turbid Urine pH 5.0 pH (4.8-9.5) Urine Specific [place] 1.029 Urine Protein Negative mg/dL (NEGATIVE) Urine Glucose (UA) Negative mg/dL (NEGATIVE) Urine Ketones Negative mg/dL (NEGATIVE) Urine Blood Moderate (NEGATIVE) Urine Nitrite Negative (NEGATIVE) Urine Bilirubin Negative (NEGATIVE) Urine Urobilinogen 2.0 mg/dL (0.2-1.9) Urine Leukocyte Esterase Small (NEGATIVE) Urine RBC 4 /HPF (0-2/HPF) Urine WBC 1 /HPF (0-5/HPF) Urine Squamous Epithelial Cells Many /LPF (</=FEW) Urine Bacteria Negative /HPF (NONE-FEW) Urine Mucus Few /HPF (NONE-FEW) Vital Signs Date Time Temp Pulse Resp B/P (MAP) Pulse Ox O2 Delivery O2 Flow Rate FiO2 04/09/18 04:04 97.9 112 15 123/83 (96) 97 Room Air Muscle Strength and Tone: WNL Gait and Station: Steady (slowed unless prompted to accelerate. ) [facility]HS Medications Reviewed: Side Effects, Benefits of Medication, Risks Allergies Reviewed: Yes Mental Status Exam General Appearance: Casual, Well Groomed, Good Eye Contact, Cooperative, Polite, Good Interaction, Psychomotor Retardation, Bizarre Mannerisms Speech: Clear, Normal Rate, Normal Volume, Normal Tone, Delayed Mood: Dysthmic/Depressed Affect: Calm, Flat Thought Process: Organized, Goal Directed Thought Content: No Suicidal Ideation, No Homicidal Ideation, No Delusions, No Auditory Halllucinations, No Visual Hallucinations, No Thought Broadcasting, No Ideas of Reference, No Obsessions, No Compulsions Sensorium: Clear Cognition: Alert & Oriented-Person, Alert & Oriented-Place, Alert & Oriented- Time, [id number]-[id number] Memory: Immediate, Recent, Remote Intelligence: Below Average Insight Judgment: Poor (limited) [facility] Assessment and Plan [id number] Encounter Date: Apr 09, 2018 [id number] Encounter Time: 11:00 [facility] Plan: Necessary Precautions, Individual/Group Therapy, Admin/Titrate Meds, Educate Patient Tobacco Medications: Bupropion (Wellbutrin), Varenicline (Chantix), Started, Refused, Not Appropriate Condition, Contrainidicated Multpiple Antipsychotics Used: No Problems: (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 Last Edited By: Shalini Marie on Apr 02, 2018 08:08 Status: Chronic Condition 1. continue treatment. 2. no medication changes. SHALINI MARIE MD Apr 09, 2018 11:49
[2018-04-09 13:59] VITALS: BP 122/80
[2018-04-09] MEDS: DIAZEPAM 5 MG TAB PO SCH (21:56)
[2018-04-09] MEDS: TOPIRAMATE 25 MG TAB PO SCH (21:57)
[2018-04-10 06:47] VITALS: BP 121/79
[2018-04-10] MEDS: LIOTHYRONINE SODIUM 5 MCG TAB PO SCH (08:03)
[2018-04-10] MEDS: DOCUSATE SODIUM 100 MG CAP PO SCH ×2 (08:03→21:21)
[2018-04-10] MEDS: MULTIVITAMINS TAB PO SCH (08:04)
[2018-04-10] MEDS: buPROPion SR 150 MG TABCR PO SCH (08:04)
[2018-04-10] MEDS: CHOLECALCIFEROL 1000 UNIT TAB PO SCH (08:04)
[2018-04-10] MEDS: FOLIC ACID/CYANOCOB/PYRIDOXINE PO SCH (08:04)
[2018-04-10] MEDS: guaiFENesin/P-EPHED 1 EA TABCR PO SCH ×2 (09:04→21:22)
--- NOTE | 2018-04-10 10:55 | BHS Progress Note ---
BHS - Subjective Progress Notes Subjective Patient continues to be cooperative on the unit, and continues to be vested in various medical complaints. Mood okay, appetite and sleep intact, No other complaints. Suicidal Ideation: None Homicidal Ideation: None [facility] - Objective Physical Exam Vital Signs Vital Signs Date Time Temp Pulse Resp B/P (MAP) Pulse Ox O2 Delivery O2 Flow Rate FiO2 04/10/18 06:47 98.0 115 121/79 (93) 95 Room Air 04/09/18 04:04 15 Hematology Test 03/28/18 00:00 03/29/18 00:00 03/29/18 11:41 Urine HCG, Qualitative Negative (NEGATIVE) Urine Color Yellow Urine Clarity Turbid Urine pH 5.0 pH (4.8-9.5) Urine Specific [place] 1.029 Urine Protein Negative mg/dL (NEGATIVE) Urine Glucose (UA) Negative mg/dL (NEGATIVE) Urine Ketones Negative mg/dL (NEGATIVE) Urine Blood Moderate (NEGATIVE) Urine Nitrite Negative (NEGATIVE) Urine Bilirubin Negative (NEGATIVE) Urine Urobilinogen 2.0 mg/dL (0.2-1.9) Urine Leukocyte Esterase Small (NEGATIVE) Urine RBC 4 /HPF (0-2/HPF) Urine WBC 1 /HPF (0-5/HPF) Urine Squamous Epithelial Cells Many /LPF (</=FEW) Urine Bacteria Negative /HPF (NONE-FEW) Urine Mucus Few /HPF (NONE-FEW) Red Blood Count 4.50 M/uL (4.17-5.56) Mean Corpuscular Volume 92.0 fL (80.0-96.0) Mean Corpuscular Hemoglobin 31.4 pg (26.0-33.0) Mean Corpuscular Hemoglobin Concent 34.1 g/dL (32.0-36.0) Red Cell Distribution Width 13.2 % (11.5-14.5) Mean Platelet Volume 7.8 fL (7.2-11.1) Neutrophils (%) (Auto) 76.0 % (39.4-72.5) Lymphocytes (%) (Auto) 15.2 % (17.6-49.6) Monocytes (%) (Auto) 6.7 % (4.1-12.4) Eosinophils (%) (Auto) 1.4 % (0.4-6.7) Basophils (%) (Auto) 0.7 % (0.3-1.4) Nucleated RBC Relative Count (auto) 0.0 /100WBC Neutrophils # (Auto) 8.8 K/uL (2.0-7.4) Lymphocytes # (Auto) 1.8 K/uL (1.3-3.6) Monocytes # (Auto) 0.8 K/uL (0.3-1.0) Eosinophils # (Auto) 0.2 K/uL (0.0-0.5) Basophils # (Auto) 0.1 K/uL (0.0-0.1) Nucleated RBC Absolute Count (auto) 0.00 K/uL Sodium Level 137 mmol/L (137-145) Potassium Level 3.7 mmol/L (3.5-5.0) Chloride Level 102 mmol/L (98-107) Carbon Dioxide Level 25 mmol/L (22-31) Blood Urea Nitrogen 11 mg/dl (7-18) Creatinine 0.60 mg/dl (0.52-1.04) Glomerular Filtration Rate Calc > 60.0 Random Glucose 90 mg/dl (75-110) Calcium Level 9.4 mg/dl (8.4-10.2) Total Bilirubin 0.4 mg/dl (0.2-1.3) Aspartate Amino Transf (AST/SGOT) 94 U/L (0-35) Alanine Aminotransferase (ALT/SGPT) 67 U/L (0-56) Alkaline Phosphatase 77 U/L (0-126) Total Protein 6.3 g/dl (6.3-8.2) Albumin 3.7 g/dl (3.5-5.0) Vitamin B12 Level 177 pg/mL (180-914) Vitamin D 25-Hydroxy 19 ng/ml (30-100) Folate 21.9 ng/mL (>=5.9) Thyroid Stimulating Hormone (TSH) 1.48 uIU/ml (0.46-4.68) Free Thyroxine 1.41 ng/dl (0.78-2.19) Free Triiodothyronine 2.9 pg/mL (2.4-4.2) Chemistry Test 03/28/18 00:00 03/29/18 00:00 03/29/18 11:41 Urine HCG, Qualitative Negative (NEGATIVE) Urine Color Yellow Urine Clarity Turbid Urine pH 5.0 pH (4.8-9.5) Urine Specific [place] 1.029 Urine Protein Negative mg/dL (NEGATIVE) Urine Glucose (UA) Negative mg/dL (NEGATIVE) Urine Ketones Negative mg/dL (NEGATIVE) Urine Blood Moderate (NEGATIVE) Urine Nitrite Negative (NEGATIVE) Urine Bilirubin Negative (NEGATIVE) Urine Urobilinogen 2.0 mg/dL (0.2-1.9) Urine Leukocyte Esterase Small (NEGATIVE) Urine RBC 4 /HPF (0-2/HPF) Urine WBC 1 /HPF (0-5/HPF) Urine Squamous Epithelial Cells Many /LPF (</=FEW) Urine Bacteria Negative /HPF (NONE-FEW) Urine Mucus Few /HPF (NONE-FEW) White Blood Count 11.6 k/uL (4.5-11.0) Red Blood Count 4.50 M/uL (4.17-5.56) Hemoglobin 14.1 g/dL (12.0-16.0) Hematocrit 41.4 % (34.0-47.0) Mean Corpuscular Volume 92.0 fL (80.0-96.0) Mean Corpuscular Hemoglobin 31.4 pg (26.0-33.0) Mean Corpuscular Hemoglobin Concent 34.1 g/dL (32.0-36.0) Red Cell Distribution Width 13.2 % (11.5-14.5) Platelet Count 321 K/uL (150-450) Mean Platelet Volume 7.8 fL (7.2-11.1) Neutrophils (%) (Auto) 76.0 % (39.4-72.5) Lymphocytes (%) (Auto) 15.2 % (17.6-49.6) Monocytes (%) (Auto) 6.7 % (4.1-12.4) Eosinophils (%) (Auto) 1.4 % (0.4-6.7) Basophils (%) (Auto) 0.7 % (0.3-1.4) Nucleated RBC Relative Count (auto) 0.0 /100WBC Neutrophils # (Auto) 8.8 K/uL (2.0-7.4) Lymphocytes # (Auto) 1.8 K/uL (1.3-3.6) Monocytes # (Auto) 0.8 K/uL (0.3-1.0) Eosinophils # (Auto) 0.2 K/uL (0.0-0.5) Basophils # (Auto) 0.1 K/uL (0.0-0.1) Nucleated RBC Absolute Count (auto) 0.00 K/uL Glomerular Filtration Rate Calc > 60.0 Calcium Level 9.4 mg/dl (8.4-10.2) Total Bilirubin 0.4 mg/dl (0.2-1.3) Aspartate Amino Transf (AST/SGOT) 94 U/L (0-35) Alanine Aminotransferase (ALT/SGPT) 67 U/L (0-56) Alkaline Phosphatase 77 U/L (0-126) Total Protein 6.3 g/dl (6.3-8.2) Albumin 3.7 g/dl (3.5-5.0) Vitamin B12 Level 177 pg/mL (180-914) Vitamin D 25-Hydroxy 19 ng/ml (30-100) Folate 21.9 ng/mL (>=5.9) Thyroid Stimulating Hormone (TSH) 1.48 uIU/ml (0.46-4.68) Free Thyroxine 1.41 ng/dl (0.78-2.19) Free Triiodothyronine 2.9 pg/mL (2.4-4.2) Urinalysis Test 03/28/18 00:00 03/29/18 00:00 Urine HCG, Qualitative Negative (NEGATIVE) Urine Color Yellow Urine Clarity Turbid Urine pH 5.0 pH (4.8-9.5) Urine Specific [place] 1.029 Urine Protein Negative mg/dL (NEGATIVE) Urine Glucose (UA) Negative mg/dL (NEGATIVE) Urine Ketones Negative mg/dL (NEGATIVE) Urine Blood Moderate (NEGATIVE) Urine Nitrite Negative (NEGATIVE) Urine Bilirubin Negative (NEGATIVE) Urine Urobilinogen 2.0 mg/dL (0.2-1.9) Urine Leukocyte Esterase Small (NEGATIVE) Urine RBC 4 /HPF (0-2/HPF) Urine WBC 1 /HPF (0-5/HPF) Urine Squamous Epithelial Cells Many /LPF (</=FEW) Urine Bacteria Negative /HPF (NONE-FEW) Urine Mucus Few /HPF (NONE-FEW) Muscle Strength and Tone: WNL Gait and Station: Steady (slowed unless prompted to accelerate. ) [facility] Medications Reviewed: Side Effects, Benefits of Medication, Risks Allergies Reviewed: Yes Mental Status Exam General Appearance: Casual, Well Groomed, Good Eye Contact, Cooperative, Polite, Good Interaction, Psychomotor Retardation, Bizarre Mannerisms Speech: Clear, Normal Rate, Normal Volume, Normal Tone, Delayed Mood: Dysthmic/Depressed Affect: Calm, Flat Thought Process: Organized, Goal Directed Thought Content: No Suicidal Ideation, No Homicidal Ideation, No Delusions, No Auditory Halllucinations, No Visual Hallucinations, No Thought Broadcasting, No Ideas of Reference, No Obsessions, No Compulsions Sensorium: Clear Cognition: Alert & Oriented-Person, Alert & Oriented-Place, Alert & Oriented- Time, Yeuit-Blgtquji-Udxshlphi Memory: Immediate, Recent, Remote Intelligence: Below Average Insight Judgment: Poor (limited) [facility] Assessment and Plan [id number] Encounter Date: Apr 10, 2018 [id number] Encounter Time: 10:00 [facility] Plan: Necessary Precautions, Individual/Group Therapy, Admin/Titrate Meds, Educate Patient Tobacco Medications: Bupropion (Wellbutrin), Varenicline (Chantix), Started, Refused, Not Appropriate Condition, Contrainidicated Multpiple Antipsychotics Used: No Problems: (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 Last Edited By: Shalini Marie on Apr 02, 2018 08:08 Status: Chronic Condition 1. continue treatment. 2. therapy to address sick role behavior. SHALINI MARIE MD Apr 10, 2018 10:55
[2018-04-10 14:17] VITALS: BP 119/77
[2018-04-10] MEDS: DIAZEPAM 5 MG TAB PO SCH (21:21)
[2018-04-10] MEDS: TOPIRAMATE 25 MG TAB PO SCH (21:21)
[2018-04-10 22:14] VITALS: BP 123/92
[2018-04-11 06:36] VITALS: BP 111/84
[2018-04-11] MEDS: DOCUSATE SODIUM 100 MG CAP PO SCH ×2 (08:19→21:00)
[2018-04-11] MEDS: MULTIVITAMINS TAB PO SCH (08:19)
[2018-04-11] MEDS: guaiFENesin/P-EPHED 1 EA TABCR PO SCH ×2 (08:19→22:08)
[2018-04-11] MEDS: FOLIC ACID/CYANOCOB/PYRIDOXINE PO SCH (08:19)
[2018-04-11] MEDS: LIOTHYRONINE SODIUM 5 MCG TAB PO SCH (08:19)
[2018-04-11] MEDS: CHOLECALCIFEROL 1000 UNIT TAB PO SCH (08:20)
[2018-04-11] MEDS: buPROPion SR 150 MG TABCR PO SCH ×2 (08:20→12:25)
--- NOTE | 2018-04-11 09:27 | BHS Progress Note ---
BHS - Subjective Progress Notes Subjective Patient remains cooperative on the unit, will increase wellbutrin today, and decrease valium at night. Somatic complaints continue as patient remains vested in sick role, Will look closer into PTSD symptoms as well, which are likely present. No other concerns today, recovering from mild upper respiratory infection. Suicidal Ideation: None Homicidal Ideation: None S - Objective Physical Exam Vital Signs Hematology Test 03/28/18 00:00 03/29/18 00:00 03/29/18 11:41 Urine HCG, Qualitative Negative (NEGATIVE) Urine Color Yellow Urine Clarity Turbid Urine pH 5.0 pH (4.8-9.5) Urine Specific [place] 1.029 Urine Protein Negative mg/dL (NEGATIVE) Urine Glucose (UA) Negative mg/dL (NEGATIVE) Urine Ketones Negative mg/dL (NEGATIVE) Urine Blood Moderate (NEGATIVE) Urine Nitrite Negative (NEGATIVE) Urine Bilirubin Negative (NEGATIVE) Urine Urobilinogen 2.0 mg/dL (0.2-1.9) Urine Leukocyte Esterase Small (NEGATIVE) Urine RBC 4 /HPF (0-2/HPF) Urine WBC 1 /HPF (0-5/HPF) Urine Squamous Epithelial Cells Many /LPF (</=FEW) Urine Bacteria Negative /HPF (NONE-FEW) Urine Mucus Few /HPF (NONE-FEW) Red Blood Count 4.50 M/uL (4.17-5.56) Mean Corpuscular Volume 92.0 fL (80.0-96.0) Mean Corpuscular Hemoglobin 31.4 pg (26.0-33.0) Mean Corpuscular Hemoglobin Concent 34.1 g/dL (32.0-36.0) Red Cell Distribution Width 13.2 % (11.5-14.5) Mean Platelet Volume 7.8 fL (7.2-11.1) Neutrophils (%) (Auto) 76.0 % (39.4-72.5) Lymphocytes (%) (Auto) 15.2 % (17.6-49.6) Monocytes (%) (Auto) 6.7 % (4.1-12.4) Eosinophils (%) (Auto) 1.4 % (0.4-6.7) Basophils (%) (Auto) 0.7 % (0.3-1.4) Nucleated RBC Relative Count (auto) 0.0 /100WBC Neutrophils # (Auto) 8.8 K/uL (2.0-7.4) Lymphocytes # (Auto) 1.8 K/uL (1.3-3.6) Monocytes # (Auto) 0.8 K/uL (0.3-1.0) Eosinophils # (Auto) 0.2 K/uL (0.0-0.5) Basophils # (Auto) 0.1 K/uL (0.0-0.1) Nucleated RBC Absolute Count (auto) 0.00 K/uL Sodium Level 137 mmol/L (137-145) Potassium Level 3.7 mmol/L (3.5-5.0) Chloride Level 102 mmol/L (98-107) Carbon Dioxide Level 25 mmol/L (22-31) Blood Urea Nitrogen 11 mg/dl (7-18) Creatinine 0.60 mg/dl (0.52-1.04) Glomerular Filtration Rate Calc > 60.0 Random Glucose 90 mg/dl (75-110) Calcium Level 9.4 mg/dl (8.4-10.2) Total Bilirubin 0.4 mg/dl (0.2-1.3) Aspartate Amino Transf (AST/SGOT) 94 U/L (0-35) Alanine Aminotransferase (ALT/SGPT) 67 U/L (0-56) Alkaline Phosphatase 77 U/L (0-126) Total Protein 6.3 g/dl (6.3-8.2) Albumin 3.7 g/dl (3.5-5.0) Vitamin B12 Level 177 pg/mL (180-914) Vitamin D 25-Hydroxy 19 ng/ml (30-100) Folate 21.9 ng/mL (>=5.9) Thyroid Stimulating Hormone (TSH) 1.48 uIU/ml (0.46-4.68) Free Thyroxine 1.41 ng/dl (0.78-2.19) Free Triiodothyronine 2.9 pg/mL (2.4-4.2) Chemistry Test 03/28/18 00:00 03/29/18 00:00 03/29/18 11:41 Urine HCG, Qualitative Negative (NEGATIVE) Urine Color Yellow Urine Clarity Turbid Urine pH 5.0 pH (4.8-9.5) Urine Specific [place] 1.029 Urine Protein Negative mg/dL (NEGATIVE) Urine Glucose (UA) Negative mg/dL (NEGATIVE) Urine Ketones Negative mg/dL (NEGATIVE) Urine Blood Moderate (NEGATIVE) Urine Nitrite Negative (NEGATIVE) Urine Bilirubin Negative (NEGATIVE) Urine Urobilinogen 2.0 mg/dL (0.2-1.9) Urine Leukocyte Esterase Small (NEGATIVE) Urine RBC 4 /HPF (0-2/HPF) Urine WBC 1 /HPF (0-5/HPF) Urine Squamous Epithelial Cells Many /LPF (</=FEW) Urine Bacteria Negative /HPF (NONE-FEW) Urine Mucus Few /HPF (NONE-FEW) White Blood Count 11.6 k/uL (4.5-11.0) Red Blood Count 4.50 M/uL (4.17-5.56) Hemoglobin 14.1 g/dL (12.0-16.0) Hematocrit 41.4 % (34.0-47.0) Mean Corpuscular Volume 92.0 fL (80.0-96.0) Mean Corpuscular Hemoglobin 31.4 pg (26.0-33.0) Mean Corpuscular Hemoglobin Concent 34.1 g/dL (32.0-36.0) Red Cell Distribution Width 13.2 % (11.5-14.5) Platelet Count 321 K/uL (150-450) Mean Platelet Volume 7.8 fL (7.2-11.1) Neutrophils (%) (Auto) 76.0 % (39.4-72.5) Lymphocytes (%) (Auto) 15.2 % (17.6-49.6) Monocytes (%) (Auto) 6.7 % (4.1-12.4) Eosinophils (%) (Auto) 1.4 % (0.4-6.7) Basophils (%) (Auto) 0.7 % (0.3-1.4) Nucleated RBC Relative Count (auto) 0.0 /100WBC Neutrophils # (Auto) 8.8 K/uL (2.0-7.4) Lymphocytes # (Auto) 1.8 K/uL (1.3-3.6) Monocytes # (Auto) 0.8 K/uL (0.3-1.0) Eosinophils # (Auto) 0.2 K/uL (0.0-0.5) Basophils # (Auto) 0.1 K/uL (0.0-0.1) Nucleated RBC Absolute Count (auto) 0.00 K/uL Glomerular Filtration Rate Calc > 60.0 Calcium Level 9.4 mg/dl (8.4-10.2) Total Bilirubin 0.4 mg/dl (0.2-1.3) Aspartate Amino Transf (AST/SGOT) 94 U/L (0-35) Alanine Aminotransferase (ALT/SGPT) 67 U/L (0-56) Alkaline Phosphatase 77 U/L (0-126) Total Protein 6.3 g/dl (6.3-8.2) Albumin 3.7 g/dl (3.5-5.0) Vitamin B12 Level 177 pg/mL (180-914) Vitamin D 25-Hydroxy 19 ng/ml (30-100) Folate 21.9 ng/mL (>=5.9) Thyroid Stimulating Hormone (TSH) 1.48 uIU/ml (0.46-4.68) Free Thyroxine 1.41 ng/dl (0.78-2.19) Free Triiodothyronine 2.9 pg/mL (2.4-4.2) Urinalysis Test 03/28/18 00:00 03/29/18 00:00 Urine HCG, Qualitative Negative (NEGATIVE) Urine Color Yellow Urine Clarity Turbid Urine pH 5.0 pH (4.8-9.5) Urine Specific [place] 1.029 Urine Protein Negative mg/dL (NEGATIVE) Urine Glucose (UA) Negative mg/dL (NEGATIVE) Urine Ketones Negative mg/dL (NEGATIVE) Urine Blood Moderate (NEGATIVE) Urine Nitrite Negative (NEGATIVE) Urine Bilirubin Negative (NEGATIVE) Urine Urobilinogen 2.0 mg/dL (0.2-1.9) Urine Leukocyte Esterase Small (NEGATIVE) Urine RBC 4 /HPF (0-2/HPF) Urine WBC 1 /HPF (0-5/HPF) Urine Squamous Epithelial Cells Many /LPF (</=FEW) Urine Bacteria Negative /HPF (NONE-FEW) Urine Mucus Few /HPF (NONE-FEW) Vital Signs Date Time Temp Pulse Resp B/P (MAP) Pulse Ox O2 Delivery O2 Flow Rate FiO2 04/11/18 06:36 97.4 101 111/84 (93) 96 Room Air 04/09/18 04:04 15 Muscle Strength and Tone: WNL Gait and Station: Steady (slowed unless prompted to accelerate. ) [facility] Medications Reviewed: Side Effects, Benefits of Medication, Risks Allergies Reviewed: Yes Mental Status Exam General Appearance: Casual, Well Groomed, Good Eye Contact, Cooperative, Polite, Good Interaction, Psychomotor Retardation, Bizarre Mannerisms Speech: Clear, Normal Rate, Normal Volume, Normal Tone, Delayed Mood: Dysthmic/Depressed (improving) Affect: Full and Appropriate (at times), Calm, Neutral; No Flat; Tearful (breifly) Thought Process: Organized, Goal Directed; No Loose Associations, No Flight of Ideas Thought Content: No Suicidal Ideation, No Homicidal Ideation, No Delusions, No Auditory Halllucinations, No Visual Hallucinations, No Thought Broadcasting, No Ideas of Reference, No Obsessions, No Compulsions Sensorium: Clear Cognition: Alert & Oriented-Person, Alert & Oriented-Place, Alert & Oriented- Time, [id number] Memory: Immediate, Recent, Remote Intelligence: Below Average Insight Judgment: Poor (limited) [facility] Assessment and Plan [id number] Encounter Date: Apr 11, 2018 [id number] Encounter Time: 09:00 [facility] Plan: Necessary Precautions, Individual/Group Therapy, Admin/Titrate Meds, Educate Patient Tobacco Medications: Bupropion (Wellbutrin), Varenicline (Chantix), Started, Refused, Not Appropriate Condition, Contrainidicated Multpiple Antipsychotics Used: No Problems: (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 Last Edited By: Shalini Marie on Apr 02, 2018 08:08 Status: Chronic Condition 1. continue treatment. 2. decrease valium. 3. increase wellbutrin. SHALINI MARIE MD Apr 11, 2018 09:26
[2018-04-11 13:46] VITALS: BP 131/90
[2018-04-11] MEDS: TOPIRAMATE 25 MG TAB PO SCH (22:07)
[2018-04-11] MEDS: DIAZEPAM 5 MG TAB PO SCH (22:09)
[2018-04-12 05:21] VITALS: BP 119/89
[2018-04-12] MEDS: LIOTHYRONINE SODIUM 5 MCG TAB PO SCH (08:10)
[2018-04-12] MEDS: MULTIVITAMINS TAB PO SCH (08:10)
[2018-04-12] MEDS: buPROPion SR 150 MG TABCR PO SCH ×2 (08:10→12:33)
[2018-04-12] MEDS: DOCUSATE SODIUM 100 MG CAP PO SCH ×2 (08:10→20:49)
[2018-04-12] MEDS: CHOLECALCIFEROL 1000 UNIT TAB PO SCH (08:10)
[2018-04-12] MEDS: FOLIC ACID/CYANOCOB/PYRIDOXINE PO SCH (08:10)
[2018-04-12] MEDS: guaiFENesin/P-EPHED 1 EA TABCR PO SCH ×2 (08:10→20:49)
[2018-04-12] MEDS: [UNRECOGNIZED DRUG - OTHER] TP PRN (10:41)
[2018-04-12] MEDS: CALAMINE TP PRN (10:41)
[2018-04-12 15:08] VITALS: BP 122/82
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
[2018-04-12 18:44] VITALS: BP 112/78
[2018-04-12] MEDS: TOPIRAMATE 100 MG TAB PO SCH (20:49)
[2018-04-12] MEDS: DIAZEPAM 5 MG TAB PO SCH (20:49)
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
[2018-04-13 05:10] VITALS: BP 131/44
[2018-04-13] MEDS: DOCUSATE SODIUM 100 MG CAP PO SCH ×2 (08:33→21:42)
[2018-04-13] MEDS: LIOTHYRONINE SODIUM 5 MCG TAB PO SCH (08:33)
[2018-04-13] MEDS: MULTIVITAMINS TAB PO SCH (08:33)
[2018-04-13] MEDS: buPROPion SR 150 MG TABCR PO SCH ×2 (08:33→12:24)
[2018-04-13] MEDS: FOLIC ACID/CYANOCOB/PYRIDOXINE PO SCH (08:33)
[2018-04-13] MEDS: CHOLECALCIFEROL 1000 UNIT TAB PO SCH (08:33)
[2018-04-13] MEDS: guaiFENesin/P-EPHED 1 EA TABCR PO SCH ×2 (08:33→21:42)
[2018-04-13 13:26] VITALS: BP 108/62
--- NOTE | 2018-04-13 17:50 | BHS Progress Note ---
[facility] - Subjective Progress Notes Subjective Pt seen in treatment team with staff. Pt is doing well, she says she is a little nervous today anticipating a visit from father and aunt this weekend. But no sustained depression, no evidence of mood swings nor psychosis. She did have her sleep study tonight, and it looks like she does indeed have sleep apnea, but she will need another study to establish c-pap parameters. She was anxious and had a hard time tolerating their attempt with the mask last night, and Dr. Kline recommends we give her a pre-med of atarax prior to next stude-- will order. Tolerating wellbutrin well-- will continue current meds. Suicidal Ideation: None Homicidal Ideation: None [facility] - Objective Physical Exam Vital Signs Vital Signs 04/13/18 13:26 Temp 97.9 Pulse 114 Resp 18 B/P (MAP) 108/62 (77) Pulse Ox 97 O2 Delivery Room Air Muscle Strength and Tone: WNL Gait and Station: Steady (slowed unless prompted to accelerate. ) [facility] Medications Reviewed: Side Effects, Benefits of Medication, Risks Allergies Reviewed: Yes Mental Status Exam General Appearance: Casual, Well Groomed, Good Eye Contact, Cooperative, Polite, Good Interaction, Psychomotor Retardation Speech: Clear, Normal Volume, Normal Tone, Delayed Mood: Dysthmic/Depressed Affect: Calm, Neutral, Flat, Anxious Thought Process: Organized, Goal Directed Thought Content: No Suicidal Ideation, No Homicidal Ideation, No Delusions, No Auditory Halllucinations, No Visual Hallucinations, No Thought Broadcasting, No Ideas of Reference, No Obsessions, No Compulsions Sensorium: Clear Cognition: Alert & Oriented-Person, Alert & Oriented-Place, Alert & Oriented- Time, [id number]-Hhqazboi-[id number] Memory: Immediate, Recent, Remote Intelligence: Below Average Insight Judgment: Poor [facility] Assessment and Plan [id number] Encounter Date: Apr 13, 2018 [id number] Encounter Time: 12:30 [facility] Plan: Necessary Precautions, Individual/Group Therapy, Admin/Titrate Meds, Educate Patient Tobacco Medications: Bupropion (Wellbutrin), Varenicline (Chantix), Started, Refused, Not Appropriate Condition, Contrainidicated Multpiple Antipsychotics Used: No Problems: (1) Cannabis-induced psychotic disorder with delusions Status: Resolved (2) Mood disorder due to a general medical condition Optional Permanent Comment: high probability of obstructive sleep apnea Last Edited By: Theo Steele on Mar 30, 2018 13:52 Status: Chronic (3) Cannabis use disorder, severe, in controlled environment Status: Chronic (4) Somatic complaints, multiple Optional Permanent Comment: continually seeks out interaction from staff for a multitude of somatic complaints that are unfounded, likely represents learned behavior and formation of the sick role. Last Edited By: Theo Steele on Apr 02, 2018 08:08 Status: Chronic (5) Persistent depressive disorder Optional Permanent Comment: probable PTSD symptoms exist Last Edited By: Theo Steele on Apr 11, 2018 09:24 Status: Chronic GENA KU MD Apr 13, 2018 17:50
[2018-04-13 19:10] VITALS: BP 122/62
[2018-04-13] MEDS: TOPIRAMATE 100 MG TAB PO SCH (21:42)
[2018-04-13] MEDS: DIAZEPAM 5 MG TAB PO SCH (21:43)
[2018-04-14 06:55] VITALS: BP 119/86
[2018-04-14 08:11] VITALS: BP 119/92
[2018-04-14] MEDS: MULTIVITAMINS TAB PO SCH (08:12)
[2018-04-14] MEDS: CHOLECALCIFEROL 1000 UNIT TAB PO SCH (08:12)
[2018-04-14] MEDS: DOCUSATE SODIUM 100 MG CAP PO SCH ×2 (08:12→21:46)
[2018-04-14] MEDS: FOLIC ACID/CYANOCOB/PYRIDOXINE PO SCH (08:12)
[2018-04-14] MEDS: LIOTHYRONINE SODIUM 5 MCG TAB PO SCH (08:13)
[2018-04-14] MEDS: buPROPion SR 150 MG TABCR PO SCH ×2 (08:13→12:21)
[2018-04-14] MEDS: guaiFENesin/P-EPHED 1 EA TABCR PO SCH ×2 (08:13→21:46)
--- NOTE | 2018-04-14 09:47 | BHS Progress Note ---
S - Subjective Progress Notes Subjective "I'm anticipating a visit from my father. It's a complicated relationship. Finding out that I have sleep apnea and PTSD is a lot to deal with. I'm really missing family. This is a scary process." Depression rated 7/10, 10 worst, denies suicidal ideation Anxiety /10, anger 6/10, sleeping approx. five hours, denies nightmares, reports flashbacks "from things I don't want to remember." Denies auditory, visual hallucinations, paranoia Diagnosis of obstructive sleep apnea, awaiting mask fitting, another study n eeded to establish CPAP parameters, will receive Atarax prior to study per Dr. Kline Tolerating Wellbutrin, will continue current medications Suicidal Ideation: None Homicidal Ideation: None S - Objective Physical Exam Vital Signs Laboratory Tests 03/29/18 11:41 Laboratory Tests 03/28/18 00:00: Urine HCG, Qualitative Negative 03/29/18 00:00: Urine Color Yellow, Urine Clarity Turbid, Urine pH 5.0, Urine Specific [place] 1.029, Urine Protein Negative, Urine Glucose (UA) Negative, Urine Ketones Negative, Urine Blood Moderate, Urine Nitrite Negative, Urine Bilirubin Negative, Urine Urobilinogen 2.0, Urine Leukocyte Esterase Small, Urine RBC 4, Urine WBC 1, Urine Squamous Epithelial Cells Many, Urine Bacteria Negative, Urine Mucus Few 03/29/18 11:41: White Blood Count 11.6, Red Blood Count 4.50, Hemoglobin 14.1, Hematocrit 41.4, Mean Corpuscular Volume 92.0, Mean Corpuscular Hemoglobin 31.4, Mean Corpuscular Hemoglobin Concent 34.1, Red Cell Distribution Width 13.2, Platelet Count 321, Mean Platelet Volume 7.8, Neutrophils (%) (Auto) 76.0, Lymphocytes (%) (Auto) 15.2, Monocytes (%) (Auto) 6.7, Eosinophils (%) (Auto) 1.4, Basophils (%) (Auto) 0.7, Nucleated RBC Relative Count (auto) 0.0, Neutrophils # (Auto) 8.8, Lymphocytes # (Auto) 1.8, Monocytes # (Auto) 0.8, Eosinophils # (Auto) 0.2, Basophils # (Auto) 0.1, Nucleated RBC Absolute Count (auto) 0.00, Sodium Level 137, Potassium Level 3.7, Chloride Level 102, Carbon Dioxide Level 25, Blood Urea Nitrogen 11, Creatinine 0.60, Glomerular Filtration Rate Calc > 60.0, Random Glucose 90, Calcium Level 9.4, Total Bilirubin 0.4, Aspartate Amino Transf (AST/SGOT) 94, Alanine Aminotransferase (ALT/SGPT) 67, Alkaline Phosphatase 77, Total Protein 6.3, Albumin 3.7, Vitamin B12 Level 177, Vitamin D 25-Hydroxy 19, Folate 21.9, Thyroid Stimulating Hormone (TSH) 1.48, Free Thyroxine 1.41, Free Triiodothyronine 2.9 Medications (Trade) Dose Ordered Sig/Luisa Route PRN Reason Start Time Stop Time Status Last Admin Dose Admin Bupropion HCl (Wellbutrin Sr 150 Mg Tabcr (Or Equiv)) 150 mg BIDBL PO 04/11/18 12:00 04/28/18 10:59 04/14/18 08:13 Calamine/Phenol (Calmoseptine Oint 75 Gm Tube (Or Equiv)) APPLY NEEDED UN... Q6-8H PRN TP RASH 03/28/18 18:45 04/27/18 18:44 04/12/18 10:41 Cholecalciferol (Vitamin D3 1000 Unit Tab) 4,000 unit QDAY PO 04/03/18 09:00 05/03/18 08:59 04/14/18 08:12 Cyanocobalamin (Vitamin B-12 1000 Mcg/ml Vial (Or Equiv)) 1,000 mcg ONCE ONCE IM ONLY 03/30/18 14:55 03/30/18 14:56 DC 03/30/18 16:58 Diazepam (Valium(*) 5 Mg Tab (Or Equiv)) 2.5 mg QHS PO 04/11/18 21:00 04/25/18 20:59 04/13/18 21:43 Docusate Sodium (Colace(*) 100 Mg Cap (Or Equiv)) 100 mg BID PO 03/28/18 21:00 04/27/18 20:59 04/14/18 08:12 Folic Acid/ Cyanocobalamin/ pyridoxin (Foltx Tab (Or Equiv)) 1 each QDAY PO 04/03/18 09:00 05/03/18 08:59 04/14/18 08:12 Guaifenesin/ Pseudoephedrine HCl (Mucinex D Tabcr(*) (Or Equiv)) 1 each Q12H PO 04/10/18 09:00 05/10/18 08:59 04/14/18 08:13 Ibuprofen (Motrin (*) 600 Mg Tab (Or Equiv)) 300 mg Q6H PRN PO PAIN 03/28/18 18:35 04/27/18 18:34 04/07/18 04:17 Liothyronine Sodium (Cytomel 5 Mcg Tab (Or Equiv)) 5 mcg QDAY PO 04/03/18 09:00 05/03/18 08:59 04/14/18 08:13 Lorazepam (Ativan(*) 1 Mg Tab (Or Equiv)) 1 mg ONCE ONCE PO 03/30/18 02:25 03/30/18 02:43 DC 03/30/18 02:53 Multivitamins (Thera-M Enhanced Tab (Or Equiv)) 1 each QDAY PO 03/29/18 09:00 04/28/18 08:59 04/14/18 08:12 Sertraline HCl (Zoloft 50 Mg Tab (Or Equiv)) 50 mg QDAY PO 03/28/18 18:35 03/29/18 10:50 DC 03/29/18 08:07 Topiramate (Topamax 100 Mg Tab (Or Equiv)) 100 mg QHS PO 04/12/18 21:00 05/12/18 20:59 04/13/18 21:42 Topiramate (Topamax 25 Mg Tab (Or Equiv)) 75 mg QHS PO 04/05/18 21:00 04/12/18 11:20 DC 04/11/18 22:07 Vital Signs Date Time Temp Pulse Resp B/P (MAP) Pulse Ox O2 Delivery O2 Flow Rate FiO2 04/14/18 08:11 99.2 113 119/92 (101) 96 Room Air 04/13/18 19:10 18 Muscle Strength and Tone: WNL Gait and Station: Steady (slowed unless prompted to accelerate. ) B[facility] Medications Reviewed: Side Effects, Benefits of Medication, Risks Allergies Reviewed: Yes Mental Status Exam General Appearance: Casual, Well Groomed, Good Eye Contact, Cooperative, Polite, Good Interaction, Psychomotor Retardation Speech: Clear, Spontaneous, Normal Rate, Normal Rhythm, Normal Volume, Normal Tone; No Delayed (tearful this am anticipating visit from father) Mood: Dysthmic/Depressed Affect: Calm, Neutral, Flat, Anxious Thought Process: Organized, Logical, Goal Directed Thought Content: No Suicidal Ideation, No Homicidal Ideation, No Delusions, No Auditory Halllucinations, No Visual Hallucinations, No Thought Broadcasting, No Ideas of Reference, No Obsessions, No Compulsions Sensorium: Clear Cognition: Alert & Oriented-Person, Alert & Oriented-Place, Alert & Oriented- Time, Nxkrm-Dllgulho-Figvatihs Memory: Immediate, Recent, Remote Intelligence: Below Average Insight Judgment: Poor BHS Assessment and Plan [id number] Encounter Date: Apr 14, 2018 [id number] Encounter Time: 09:37 S Plan: Necessary Precautions, Individual/Group Therapy, Admin/Titrate Meds, Educate Patient Tobacco Medications: Bupropion (Wellbutrin), Varenicline (Chantix), Started, Refused, Not Appropriate Condition, Contrainidicated Multpiple Antipsychotics Used: No Problems: (1) Persistent depressive disorder Optional Permanent Comment: probable PTSD symptoms exist Last Edited By: Theo Steele on Apr 11, 2018 09:24 Status: Chronic (2) Somatic complaints, multiple Optional Permanent Comment: continually seeks out interaction from staff for a multitude of somatic complaints that are unfounded, likely represents learned behavior and formation of the sick role. 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 Permanent Comment: high probability of obstructive sleep apnea Last Edited By: Theo Steele on Mar 30, 2018 13:52 Status: Chronic (5) Cannabis-induced psychotic disorder with delusions Status: Resolved Condition Continue current treatment Awaiting follow up sleep study for appropriate mask Awaiting [facility] transfer Current Medications Medications (Trade) Dose Ordered Sig/Luisa Route PRN Reason Start Time Stop Time Status Last Admin Dose Admin Al Hydrox/Mg Hydrox/Simethicone (Maalox(*) 30 ml Udcup (Or Equiv)) 30 ml Q4H PRN PO DYSPEPSIA 03/28/18 11:20 04/27/18 11:19 Multivitamins (Thera-M Enhanced Tab (Or Equiv)) 1 each QDAY PO 03/29/18 09:00 04/28/18 08:59 04/14/18 08:12 Sertraline HCl (Zoloft 50 Mg Tab (Or Equiv)) 50 mg QDAY PO 03/28/18 18:35 03/29/18 10:50 DC 03/29/18 08:07 Docusate Sodium (Colace(*) 100 Mg Cap (Or Equiv)) 100 mg BID PO 03/28/18 21:00 04/27/18 20:59 04/14/18 08:12 Acetaminophen (Tylenol(*)325 Mg Tab (Or Equiv)) 325 mg Q6H PRN PO FEVER/PAIN 03/28/18 18:35 04/27/18 18:34 Ibuprofen (Motrin (*) 600 Mg Tab (Or Equiv)) 300 mg Q6H PRN PO PAIN 03/28/18 18:35 04/27/18 18:34 04/07/18 04:17 Calamine/Phenol (Calmoseptine Oint 75 Gm Tube (Or Equiv)) APPLY NEEDED UN... Q6-8H PRN TP RASH 03/28/18 18:45 04/27/18 18:44 04/12/18 10:41 Bupropion HCl (Wellbutrin Sr 150 Mg Tabcr (Or Equiv)) 150 mg QAM PO 03/29/18 11:00 04/11/18 09:17 DC 04/11/18 08:20 Albuterol Sulfate (Ventolin Hfa 8 Gm Inh (Or Equiv)) 2 PUFFS Q6HR PRN INH SHORTNESS OF BREATH 03/29/18 12:45 04/28/18 12:44 Cholecalciferol (Vitamin D3 1000 Unit Tab) 1,000 unit QDAY PO 03/29/18 13:20 04/02/18 07:41 DC 04/02/18 07:28 Topiramate (Topamax 25 Mg Tab (Or Equiv)) 25 mg QHS PO 03/29/18 21:00 04/02/18 07:41 DC 04/01/18 21:04 Ibuprofen (Motrin (*) 200 Mg Tab (Or Equiv)) 200 mg Q6H PRN PO PAIN 03/29/18 23:30 03/29/18 23:41 DC Lorazepam (Ativan(*) 1 Mg Tab (Or Equiv)) 1 mg ONCE ONCE PO 03/30/18 02:25 03/30/18 02:43 DC 03/30/18 02:53 Diazepam (Valium(*) 5 Mg Tab (Or Equiv)) 5 mg QHS PO 03/30/18 21:00 04/11/18 09:17 DC 04/10/18 21:21 Cyanocobalamin (Vitamin B-12 1000 Mcg/ml Vial (Or Equiv)) 1,000 mcg ONCE ONCE IM ONLY 03/30/18 14:55 03/30/18 14:56 DC 03/30/18 16:58 Cholecalciferol (Vitamin D3 1000 Unit Tab) 4,000 unit QDAY PO 04/02/18 09:00 04/02/18 09:00 DC Topiramate (Topamax 25 Mg Tab (Or Equiv)) 50 mg QHS PO 04/02/18 21:00 04/05/18 11:58 DC 04/04/18 21:20 Folic Acid/ Cyanocobalamin/ pyridoxin (Foltx Tab (Or Equiv)) 1 each QDAY PO 04/02/18 09:00 04/02/18 09:00 DC Cholecalciferol (Vitamin D3 1000 Unit Tab) 4,000 unit QDAY PO 04/03/18 09:00 05/03/18 08:59 04/14/18 08:12 Folic Acid/ Cyanocobalamin/ pyridoxin (Foltx Tab (Or Equiv)) 1 each QDAY PO 04/03/18 09:00 05/03/18 08:59 04/14/18 08:12 Liothyronine Sodium (Cytomel 5 Mcg Tab (Or Equiv)) 5 mcg QDAY PO 04/03/18 09:00 05/03/18 08:59 04/14/18 08:13 Topiramate (Topamax 25 Mg Tab (Or Equiv)) 75 mg QHS PO 04/05/18 21:00 04/12/18 11:20 DC 04/11/18 22:07 Guaifenesin/ Pseudoephedrine HCl (Mucinex D Tabcr(*) (Or Equiv)) 1 each Q12H PO 04/10/18 09:00 05/10/18 08:59 04/14/18 08:13 Bupropion HCl (Wellbutrin Sr 150 Mg Tabcr (Or Equiv)) 150 mg BIDBL PO 04/11/18 12:00 04/28/18 10:59 04/14/18 08:13 Diazepam (Valium(*) 5 Mg Tab (Or Equiv)) 2.5 mg QHS PO 04/11/18 21:00 04/25/18 20:59 04/13/18 21:43 Topiramate (Topamax 100 Mg Tab (Or Equiv)) 100 mg QHS PO 04/12/18 21:00 05/12/18 20:59 04/13/18 21:42 VIELKA CLEMENTE NP Apr 14, 2018 09:47
[2018-04-14 16:32] VITALS: BP 112/91
[2018-04-14] MEDS: TOPIRAMATE 100 MG TAB PO SCH (21:46)
[2018-04-14] MEDS: DIAZEPAM 5 MG TAB PO SCH (21:47)
[2018-04-15 06:29] VITALS: BP 123/89
[2018-04-15] MEDS: MULTIVITAMINS TAB PO SCH (08:37)
[2018-04-15] MEDS: FOLIC ACID/CYANOCOB/PYRIDOXINE PO SCH (08:37)
[2018-04-15] MEDS: CHOLECALCIFEROL 1000 UNIT TAB PO SCH (08:37)
[2018-04-15] MEDS: buPROPion SR 150 MG TABCR PO SCH ×2 (08:37→12:00)
[2018-04-15] MEDS: DOCUSATE SODIUM 100 MG CAP PO SCH ×2 (08:37→21:09)
[2018-04-15] MEDS: guaiFENesin/P-EPHED 1 EA TABCR PO SCH ×2 (08:37→21:09)
[2018-04-15] MEDS: LIOTHYRONINE SODIUM 5 MCG TAB PO SCH (08:37)
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
[2018-04-15 10:10] VITALS: BP 112/79
[2018-04-15] MEDS: TOPIRAMATE 100 MG TAB PO SCH (21:09)
[2018-04-15] MEDS: DIAZEPAM 5 MG TAB PO SCH (21:09)
[2018-04-16] MEDS: buPROPion SR 150 MG TABCR PO SCH ×2 (07:56→12:15)
[2018-04-16] MEDS: DOCUSATE SODIUM 100 MG CAP PO SCH ×2 (07:56→22:00)
[2018-04-16] MEDS: guaiFENesin/P-EPHED 1 EA TABCR PO SCH ×2 (07:56→22:00)
[2018-04-16] MEDS: MULTIVITAMINS TAB PO SCH (07:56)
[2018-04-16] MEDS: LIOTHYRONINE SODIUM 5 MCG TAB PO SCH (07:56)
[2018-04-16] MEDS: CHOLECALCIFEROL 1000 UNIT TAB PO SCH (07:56)
[2018-04-16] MEDS: FOLIC ACID/CYANOCOB/PYRIDOXINE PO SCH (07:56)
--- NOTE | 2018-04-16 13:31 | BHS Progress Note ---
BHS - Subjective Progress Notes Subjective Patient continues to interact in an infantile manner at times, remains easily behaviorally redirected when frustrations arise. Will continue current medications, no other concerns today. Will continue to encourage patient to be tolerant and compliant of follow up sleep study if this can be arranged. Suicidal Ideation: None Homicidal Ideation: None BHS - Objective Physical Exam Vital Signs Vital Signs Date Time Temp Pulse Resp B/P (MAP) Pulse Ox O2 Delivery O2 Flow Rate FiO2 04/15/18 10:10 98.3 117 18 112/79 (90) 95 Room Air Hematology Test 03/28/18 00:00 03/29/18 00:00 03/29/18 11:41 Urine HCG, Qualitative Negative (NEGATIVE) Urine Color Yellow Urine Clarity Turbid Urine pH 5.0 pH (4.8-9.5) Urine Specific [place] 1.029 Urine Protein Negative mg/dL (NEGATIVE) Urine Glucose (UA) Negative mg/dL (NEGATIVE) Urine Ketones Negative mg/dL (NEGATIVE) Urine Blood Moderate (NEGATIVE) Urine Nitrite Negative (NEGATIVE) Urine Bilirubin Negative (NEGATIVE) Urine Urobilinogen 2.0 mg/dL (0.2-1.9) Urine Leukocyte Esterase Small (NEGATIVE) Urine RBC 4 /HPF (0-2/HPF) Urine WBC 1 /HPF (0-5/HPF) Urine Squamous Epithelial Cells Many /LPF (</=FEW) Urine Bacteria Negative /HPF (NONE-FEW) Urine Mucus Few /HPF (NONE-FEW) Red Blood Count 4.50 M/uL (4.17-5.56) Mean Corpuscular Volume 92.0 fL (80.0-96.0) Mean Corpuscular Hemoglobin 31.4 pg (26.0-33.0) Mean Corpuscular Hemoglobin Concent 34.1 g/dL (32.0-36.0) Red Cell Distribution Width 13.2 % (11.5-14.5) Mean Platelet Volume 7.8 fL (7.2-11.1) Neutrophils (%) (Auto) 76.0 % (39.4-72.5) Lymphocytes (%) (Auto) 15.2 % (17.6-49.6) Monocytes (%) (Auto) 6.7 % (4.1-12.4) Eosinophils (%) (Auto) 1.4 % (0.4-6.7) Basophils (%) (Auto) 0.7 % (0.3-1.4) Nucleated RBC Relative Count (auto) 0.0 /100WBC Neutrophils # (Auto) 8.8 K/uL (2.0-7.4) Lymphocytes # (Auto) 1.8 K/uL (1.3-3.6) Monocytes # (Auto) 0.8 K/uL (0.3-1.0) Eosinophils # (Auto) 0.2 K/uL (0.0-0.5) Basophils # (Auto) 0.1 K/uL (0.0-0.1) Nucleated RBC Absolute Count (auto) 0.00 K/uL Sodium Level 137 mmol/L (137-145) Potassium Level 3.7 mmol/L (3.5-5.0) Chloride Level 102 mmol/L (98-107) Carbon Dioxide Level 25 mmol/L (22-31) Blood Urea Nitrogen 11 mg/dl (7-18) Creatinine 0.60 mg/dl (0.52-1.04) Glomerular Filtration Rate Calc > 60.0 Random Glucose 90 mg/dl (75-110) Calcium Level 9.4 mg/dl (8.4-10.2) Total Bilirubin 0.4 mg/dl (0.2-1.3) Aspartate Amino Transf (AST/SGOT) 94 U/L (0-35) Alanine Aminotransferase (ALT/SGPT) 67 U/L (0-56) Alkaline Phosphatase 77 U/L (0-126) Total Protein 6.3 g/dl (6.3-8.2) Albumin 3.7 g/dl (3.5-5.0) Vitamin B12 Level 177 pg/mL (180-914) Vitamin D 25-Hydroxy 19 ng/ml (30-100) Folate 21.9 ng/mL (>=5.9) Thyroid Stimulating Hormone (TSH) 1.48 uIU/ml (0.46-4.68) Free Thyroxine 1.41 ng/dl (0.78-2.19) Free Triiodothyronine 2.9 pg/mL (2.4-4.2) Chemistry Test 03/28/18 00:00 03/29/18 00:00 03/29/18 11:41 Urine HCG, Qualitative Negative (NEGATIVE) Urine Color Yellow Urine Clarity Turbid Urine pH 5.0 pH (4.8-9.5) Urine Specific [place] 1.029 Urine Protein Negative mg/dL (NEGATIVE) Urine Glucose (UA) Negative mg/dL (NEGATIVE) Urine Ketones Negative mg/dL (NEGATIVE) Urine Blood Moderate (NEGATIVE) Urine Nitrite Negative (NEGATIVE) Urine Bilirubin Negative (NEGATIVE) Urine Urobilinogen 2.0 mg/dL (0.2-1.9) Urine Leukocyte Esterase Small (NEGATIVE) Urine RBC 4 /HPF (0-2/HPF) Urine WBC 1 /HPF (0-5/HPF) Urine Squamous Epithelial Cells Many /LPF (</=FEW) Urine Bacteria Negative /HPF (NONE-FEW) Urine Mucus Few /HPF (NONE-FEW) White Blood Count 11.6 k/uL (4.5-11.0) Red Blood Count 4.50 M/uL (4.17-5.56) Hemoglobin 14.1 g/dL (12.0-16.0) Hematocrit 41.4 % (34.0-47.0) Mean Corpuscular Volume 92.0 fL (80.0-96.0) Mean Corpuscular Hemoglobin 31.4 pg (26.0-33.0) Mean Corpuscular Hemoglobin Concent 34.1 g/dL (32.0-36.0) Red Cell Distribution Width 13.2 % (11.5-14.5) Platelet Count 321 K/uL (150-450) Mean Platelet Volume 7.8 fL (7.2-11.1) Neutrophils (%) (Auto) 76.0 % (39.4-72.5) Lymphocytes (%) (Auto) 15.2 % (17.6-49.6) Monocytes (%) (Auto) 6.7 % (4.1-12.4) Eosinophils (%) (Auto) 1.4 % (0.4-6.7) Basophils (%) (Auto) 0.7 % (0.3-1.4) Nucleated RBC Relative Count (auto) 0.0 /100WBC Neutrophils # (Auto) 8.8 K/uL (2.0-7.4) Lymphocytes # (Auto) 1.8 K/uL (1.3-3.6) Monocytes # (Auto) 0.8 K/uL (0.3-1.0) Eosinophils # (Auto) 0.2 K/uL (0.0-0.5) Basophils # (Auto) 0.1 K/uL (0.0-0.1) Nucleated RBC Absolute Count (auto) 0.00 K/uL Glomerular Filtration Rate Calc > 60.0 Calcium Level 9.4 mg/dl (8.4-10.2) Total Bilirubin 0.4 mg/dl (0.2-1.3) Aspartate Amino Transf (AST/SGOT) 94 U/L (0-35) Alanine Aminotransferase (ALT/SGPT) 67 U/L (0-56) Alkaline Phosphatase 77 U/L (0-126) Total Protein 6.3 g/dl (6.3-8.2) Albumin 3.7 g/dl (3.5-5.0) Vitamin B12 Level 177 pg/mL (180-914) Vitamin D 25-Hydroxy 19 ng/ml (30-100) Folate 21.9 ng/mL (>=5.9) Thyroid Stimulating Hormone (TSH) 1.48 uIU/ml (0.46-4.68) Free Thyroxine 1.41 ng/dl (0.78-2.19) Free Triiodothyronine 2.9 pg/mL (2.4-4.2) Urinalysis Test 03/28/18 00:00 03/29/18 00:00 Urine HCG, Qualitative Negative (NEGATIVE) Urine Color Yellow Urine Clarity Turbid Urine pH 5.0 pH (4.8-9.5) Urine Specific [place] 1.029 Urine Protein Negative mg/dL (NEGATIVE) Urine Glucose (UA) Negative mg/dL (NEGATIVE) Urine Ketones Negative mg/dL (NEGATIVE) Urine Blood Moderate (NEGATIVE) Urine Nitrite Negative (NEGATIVE) Urine Bilirubin Negative (NEGATIVE) Urine Urobilinogen 2.0 mg/dL (0.2-1.9) Urine Leukocyte Esterase Small (NEGATIVE) Urine RBC 4 /HPF (0-2/HPF) Urine WBC 1 /HPF (0-5/HPF) Urine Squamous Epithelial Cells Many /LPF (</=FEW) Urine Bacteria Negative /HPF (NONE-FEW) Urine Mucus Few /HPF (NONE-FEW) Muscle Strength and Tone: WNL Gait and Station: Steady (slowed unless prompted to accelerate. ) S Medications Reviewed: Side Effects, Benefits of Medication, Risks Allergies Reviewed: Yes Mental Status Exam General Appearance: Casual, Well Groomed, Good Eye Contact, Cooperative, Polite, Good Interaction, Psychomotor Retardation Speech: Clear, Spontaneous, Normal Rate, Normal Rhythm, Normal Volume, Normal Tone; No Delayed (tearful this am anticipating visit from father) Mood: Dysthmic/Depressed (variable) Affect: Full and Appropriate (at times), Calm, Neutral; No Flat, No Withdrawn; Tearful (at times); No Anxious Thought Process: Organized, Logical, Goal Directed (I want to go home) Thought Content: No Suicidal Ideation, No Homicidal Ideation, No Delusions, No Auditory Halllucinations, No Visual Hallucinations, No Thought Broadcasting, No Ideas of Reference, No Obsessions, No Compulsions Sensorium: Clear Cognition: Alert & Oriented-Person, Alert & Oriented-Place, Alert & Oriented- Time, Swtvf-[id number]-[id number] Memory: Immediate, Recent, Remote Intelligence: Below Average Insight Judgment: Poor S Assessment and Plan Rahx-[id number] Encounter Date: Apr 16, 2018 [id number] Encounter Time: 11:00 [facility] Plan: Necessary Precautions, Individual/Group Therapy, Admin/Titrate Meds, Educate Patient Tobacco Medications: Bupropion (Wellbutrin), Varenicline (Chantix), Started, Refused, Not Appropriate Condition, Contrainidicated Multpiple Antipsychotics Used: No Problems: (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 Optional Permanent Comment: high probability of obstructive sleep apnea Last Edited By: Shalini Marie on Mar 30, 2018 13:52 Status: Chronic (2) Cannabis-induced psychotic disorder with delusions Status: Resolved (3) Persistent depressive disorder Optional Permanent Comment: probable PTSD symptoms exist Last Edited By: Shalini Marie on Apr 11, 2018 09:24 Status: Chronic (4) Cannabis use disorder, severe, in controlled environment Status: Chronic (5) Somatic complaints, multiple Optional Permanent Comment: continually seeks out interaction from staff for a multitude of somatic complaints that are unfounded, likely represents learned behavior and formation of the sick role. Last Edited By: Shalini Marie on Apr 02, 2018 08:08 Status: Chronic Condition 1. continue treatment. 2. encourage use of unconnected c-pap mask during daytime hours SHALINI MARIE MD Apr 16, 2018 13:31
[2018-04-16 14:33] VITALS: BP 112/81
[2018-04-16 21:27] VITALS: BP 123/89
[2018-04-16] MEDS: TOPIRAMATE 100 MG TAB PO SCH (22:00)
[2018-04-16] MEDS: DIAZEPAM 5 MG TAB PO SCH (22:01)
[2018-04-17 06:05] VITALS: BP 100/70
[2018-04-17] MEDS: guaiFENesin/P-EPHED 1 EA TABCR PO SCH ×2 (08:17→21:15)
[2018-04-17] MEDS: LIOTHYRONINE SODIUM 5 MCG TAB PO SCH (08:17)
[2018-04-17] MEDS: FOLIC ACID/CYANOCOB/PYRIDOXINE PO SCH (08:17)
[2018-04-17] MEDS: MULTIVITAMINS TAB PO SCH (08:17)
[2018-04-17] MEDS: DOCUSATE SODIUM 100 MG CAP PO SCH ×2 (08:17→21:15)
[2018-04-17] MEDS: buPROPion SR 150 MG TABCR PO SCH ×2 (08:17→12:07)
[2018-04-17] MEDS: CHOLECALCIFEROL 1000 UNIT TAB PO SCH (08:17)
--- NOTE | 2018-04-17 12:42 | BHS Progress Note ---
[facility] - Subjective Progress Notes Subjective Patient verbalizing some reservations about meeting with Mother who was coming to visit today, but vague as to any specific details. Patient continues to verbalize her desire to live with her Mother and step-father in [place] in the future. Patient continues to await follow up sleep study, reverts quickly to sick role behavior but remains easily redirected behaviorally. No other complaints today. Suicidal Ideation: None Homicidal Ideation: None [facility] - Objective Physical Exam Vital Signs Hematology Test 03/28/18 00:00 03/29/18 00:00 03/29/18 11:41 Urine HCG, Qualitative Negative (NEGATIVE) Urine Color Yellow Urine Clarity Turbid Urine pH 5.0 pH (4.8-9.5) Urine Specific [place] 1.029 Urine Protein Negative mg/dL (NEGATIVE) Urine Glucose (UA) Negative mg/dL (NEGATIVE) Urine Ketones Negative mg/dL (NEGATIVE) Urine Blood Moderate (NEGATIVE) Urine Nitrite Negative (NEGATIVE) Urine Bilirubin Negative (NEGATIVE) Urine Urobilinogen 2.0 mg/dL (0.2-1.9) Urine Leukocyte Esterase Small (NEGATIVE) Urine RBC 4 /HPF (0-2/HPF) Urine WBC 1 /HPF (0-5/HPF) Urine Squamous Epithelial Cells Many /LPF (</=FEW) Urine Bacteria Negative /HPF (NONE-FEW) Urine Mucus Few /HPF (NONE-FEW) Red Blood Count 4.50 M/uL (4.17-5.56) Mean Corpuscular Volume 92.0 fL (80.0-96.0) Mean Corpuscular Hemoglobin 31.4 pg (26.0-33.0) Mean Corpuscular Hemoglobin Concent 34.1 g/dL (32.0-36.0) Red Cell Distribution Width 13.2 % (11.5-14.5) Mean Platelet Volume 7.8 fL (7.2-11.1) Neutrophils (%) (Auto) 76.0 % (39.4-72.5) Lymphocytes (%) (Auto) 15.2 % (17.6-49.6) Monocytes (%) (Auto) 6.7 % (4.1-12.4) Eosinophils (%) (Auto) 1.4 % (0.4-6.7) Basophils (%) (Auto) 0.7 % (0.3-1.4) Nucleated RBC Relative Count (auto) 0.0 /100WBC Neutrophils # (Auto) 8.8 K/uL (2.0-7.4) Lymphocytes # (Auto) 1.8 K/uL (1.3-3.6) Monocytes # (Auto) 0.8 K/uL (0.3-1.0) Eosinophils # (Auto) 0.2 K/uL (0.0-0.5) Basophils # (Auto) 0.1 K/uL (0.0-0.1) Nucleated RBC Absolute Count (auto) 0.00 K/uL Sodium Level 137 mmol/L (137-145) Potassium Level 3.7 mmol/L (3.5-5.0) Chloride Level 102 mmol/L (98-107) Carbon Dioxide Level 25 mmol/L (22-31) Blood Urea Nitrogen 11 mg/dl (7-18) Creatinine 0.60 mg/dl (0.52-1.04) Glomerular Filtration Rate Calc > 60.0 Random Glucose 90 mg/dl (75-110) Calcium Level 9.4 mg/dl (8.4-10.2) Total Bilirubin 0.4 mg/dl (0.2-1.3) Aspartate Amino Transf (AST/SGOT) 94 U/L (0-35) Alanine Aminotransferase (ALT/SGPT) 67 U/L (0-56) Alkaline Phosphatase 77 U/L (0-126) Total Protein 6.3 g/dl (6.3-8.2) Albumin 3.7 g/dl (3.5-5.0) Vitamin B12 Level 177 pg/mL (180-914) Vitamin D 25-Hydroxy 19 ng/ml (30-100) Folate 21.9 ng/mL (>=5.9) Thyroid Stimulating Hormone (TSH) 1.48 uIU/ml (0.46-4.68) Free Thyroxine 1.41 ng/dl (0.78-2.19) Free Triiodothyronine 2.9 pg/mL (2.4-4.2) Chemistry Test 03/28/18 00:00 03/29/18 00:00 03/29/18 11:41 Urine HCG, Qualitative Negative (NEGATIVE) Urine Color Yellow Urine Clarity Turbid Urine pH 5.0 pH (4.8-9.5) Urine Specific [place] 1.029 Urine Protein Negative mg/dL (NEGATIVE) Urine Glucose (UA) Negative mg/dL (NEGATIVE) Urine Ketones Negative mg/dL (NEGATIVE) Urine Blood Moderate (NEGATIVE) Urine Nitrite Negative (NEGATIVE) Urine Bilirubin Negative (NEGATIVE) Urine Urobilinogen 2.0 mg/dL (0.2-1.9) Urine Leukocyte Esterase Small (NEGATIVE) Urine RBC 4 /HPF (0-2/HPF) Urine WBC 1 /HPF (0-5/HPF) Urine Squamous Epithelial Cells Many /LPF (</=FEW) Urine Bacteria Negative /HPF (NONE-FEW) Urine Mucus Few /HPF (NONE-FEW) White Blood Count 11.6 k/uL (4.5-11.0) Red Blood Count 4.50 M/uL (4.17-5.56) Hemoglobin 14.1 g/dL (12.0-16.0) Hematocrit 41.4 % (34.0-47.0) Mean Corpuscular Volume 92.0 fL (80.0-96.0) Mean Corpuscular Hemoglobin 31.4 pg (26.0-33.0) Mean Corpuscular Hemoglobin Concent 34.1 g/dL (32.0-36.0) Red Cell Distribution Width 13.2 % (11.5-14.5) Platelet Count 321 K/uL (150-450) Mean Platelet Volume 7.8 fL (7.2-11.1) Neutrophils (%) (Auto) 76.0 % (39.4-72.5) Lymphocytes (%) (Auto) 15.2 % (17.6-49.6) Monocytes (%) (Auto) 6.7 % (4.1-12.4) Eosinophils (%) (Auto) 1.4 % (0.4-6.7) Basophils (%) (Auto) 0.7 % (0.3-1.4) Nucleated RBC Relative Count (auto) 0.0 /100WBC Neutrophils # (Auto) 8.8 K/uL (2.0-7.4) Lymphocytes # (Auto) 1.8 K/uL (1.3-3.6) Monocytes # (Auto) 0.8 K/uL (0.3-1.0) Eosinophils # (Auto) 0.2 K/uL (0.0-0.5) Basophils # (Auto) 0.1 K/uL (0.0-0.1) Nucleated RBC Absolute Count (auto) 0.00 K/uL Glomerular Filtration Rate Calc > 60.0 Calcium Level 9.4 mg/dl (8.4-10.2) Total Bilirubin 0.4 mg/dl (0.2-1.3) Aspartate Amino Transf (AST/SGOT) 94 U/L (0-35) Alanine Aminotransferase (ALT/SGPT) 67 U/L (0-56) Alkaline Phosphatase 77 U/L (0-126) Total Protein 6.3 g/dl (6.3-8.2) Albumin 3.7 g/dl (3.5-5.0) Vitamin B12 Level 177 pg/mL (180-914) Vitamin D 25-Hydroxy 19 ng/ml (30-100) Folate 21.9 ng/mL (>=5.9) Thyroid Stimulating Hormone (TSH) 1.48 uIU/ml (0.46-4.68) Free Thyroxine 1.41 ng/dl (0.78-2.19) Free Triiodothyronine 2.9 pg/mL (2.4-4.2) Urinalysis Test 03/28/18 00:00 03/29/18 00:00 Urine HCG, Qualitative Negative (NEGATIVE) Urine Color Yellow Urine Clarity Turbid Urine pH 5.0 pH (4.8-9.5) Urine Specific [place] 1.029 Urine Protein Negative mg/dL (NEGATIVE) Urine Glucose (UA) Negative mg/dL (NEGATIVE) Urine Ketones Negative mg/dL (NEGATIVE) Urine Blood Moderate (NEGATIVE) Urine Nitrite Negative (NEGATIVE) Urine Bilirubin Negative (NEGATIVE) Urine Urobilinogen 2.0 mg/dL (0.2-1.9) Urine Leukocyte Esterase Small (NEGATIVE) Urine RBC 4 /HPF (0-2/HPF) Urine WBC 1 /HPF (0-5/HPF) Urine Squamous Epithelial Cells Many /LPF (</=FEW) Urine Bacteria Negative /HPF (NONE-FEW) Urine Mucus Few /HPF (NONE-FEW) Vital Signs Date Time Temp Pulse Resp B/P (MAP) Pulse Ox O2 Delivery O2 Flow Rate FiO2 04/17/18 06:05 97.3 105 15 100/70 (80) 97 Room Air Muscle Strength and Tone: WNL Gait and Station: Steady (slowed unless prompted to accelerate. ) [facility] Medications Reviewed: Side Effects, Benefits of Medication, Risks Allergies Reviewed: Yes Mental Status Exam General Appearance: Casual, Well Groomed, Good Eye Contact, Cooperative, Polite, Good Interaction, Psychomotor Retardation Speech: Clear, Spontaneous, Normal Rate, Normal Rhythm, Normal Volume, Normal Tone; No Delayed Mood: Dysthmic/Depressed (variable) Affect: Full and Appropriate (at times), Calm, Neutral; No Flat, No Withdrawn; Tearful (at times); No Anxious Thought Process: Organized, Logical, Goal Directed (I want to go home) Thought Content: No Suicidal Ideation, No Homicidal Ideation, No Delusions, No Auditory Halllucinations, No Visual Hallucinations, No Thought Broadcasting, No Ideas of Reference, No Obsessions, No Compulsions Sensorium: Clear Cognition: Alert & Oriented-Person, Alert & Oriented-Place, Alert & Oriented- Time, Lszul-Gxiiczpp-Kzirmuzjl Memory: Immediate, Recent, Remote Intelligence: Below Average Insight Judgment: Poor [facility] Assessment and Plan Litn-[id number] Encounter Date: Apr 17, 2018 [id number] Encounter Time: 09:00 [facility] Plan: Necessary Precautions, Individual/Group Therapy, Admin/Titrate Meds, Educate Patient Tobacco Medications: Bupropion (Wellbutrin), Varenicline (Chantix), Started, Refused, Not Appropriate Condition, Contrainidicated Multpiple Antipsychotics Used: No Problems: (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 Optional Permanent Comment: high probability of obstructive sleep apnea Last Edited By: Shalini Marie on Mar 30, 2018 13:52 Status: Chronic (2) Cannabis-induced psychotic disorder with delusions Status: Resolved (3) Persistent depressive disorder Optional Permanent Comment: probable PTSD symptoms exist Last Edited By: Shalini Marie on Apr 11, 2018 09:24 Status: Chronic (4) Cannabis use disorder, severe, in controlled environment Status: Chronic (5) Somatic complaints, multiple Optional Permanent Comment: continually seeks out interaction from staff for a multitude of somatic complaints that are unfounded, likely represents learned behavior and formation of the sick role. Last Edited By: Shalini Marie on Apr 02, 2018 08:08 Status: Chronic Condition 1. continue treatment. 2. await sleep study. 3. await [facility] transfer, SHALINI MARIE MD Apr 17, 2018 12:42
[2018-04-17 13:58] VITALS: BP 110/72
[2018-04-17 20:01] VITALS: BP 124/80
[2018-04-17] MEDS: TOPIRAMATE 100 MG TAB PO SCH (21:15)
[2018-04-17] MEDS: DIAZEPAM 5 MG TAB PO SCH (21:15)
[2018-04-18 06:24] VITALS: BP 104/72
[2018-04-18] MEDS: LIOTHYRONINE SODIUM 5 MCG TAB PO SCH (08:21)
[2018-04-18] MEDS: MULTIVITAMINS TAB PO SCH (08:21)
[2018-04-18] MEDS: DOCUSATE SODIUM 100 MG CAP PO SCH ×2 (08:21→20:51)
[2018-04-18] MEDS: FOLIC ACID/CYANOCOB/PYRIDOXINE PO SCH (08:21)
[2018-04-18] MEDS: buPROPion SR 150 MG TABCR PO SCH ×2 (08:21→13:15)
[2018-04-18] MEDS: CHOLECALCIFEROL 1000 UNIT TAB PO SCH (08:22)
[2018-04-18] MEDS: guaiFENesin/P-EPHED 1 EA TABCR PO SCH ×3 (08:23→20:50)
--- NOTE | 2018-04-18 13:41 | BHS Progress Note ---
[facility] - Subjective Progress Notes Subjective Patient responding overall positively to this providers efforts to point out to the patient how she seems to psychologically regress very quickly when her Mother visits. Remains easily behaviorally re-directed, and is encouraged to wear face mask in order to be accustomed to pending sleep study. No medication changes today. continue treatment. Suicidal Ideation: None Homicidal Ideation: None [facility] - Objective Physical Exam Vital Signs Vital Signs Date Time Temp Pulse Resp B/P (MAP) Pulse Ox O2 Delivery O2 Flow Rate FiO2 04/18/18 06:24 97.3 106 15 104/72 (83) 95 Room Air Muscle Strength and Tone: WNL Gait and Station: Steady (slowed unless prompted to accelerate. ) [facility] Medications Reviewed: Side Effects, Benefits of Medication, Risks Allergies Reviewed: Yes Mental Status Exam General Appearance: Casual, Well Groomed, Good Eye Contact, Cooperative, Polite, Good Interaction, Tearful, Psychomotor Retardation; No Bizarre Mannerisms, No Tics Speech: Clear, Spontaneous, Normal Rate, Normal Rhythm, Normal Volume (low at times), Normal Tone; No Delayed Mood: Dysthmic/Depressed (variable) Affect: Full and Appropriate (at times), Calm, Neutral; No Flat, No Withdrawn; Tearful (at times); No Anxious Thought Process: Organized, Logical, Goal Directed (I want to go home) Thought Content: No Suicidal Ideation, No Homicidal Ideation, No Delusions, No Auditory Halllucinations, No Visual Hallucinations, No Thought Broadcasting, No Ideas of Reference, No Obsessions, No Compulsions Sensorium: Clear Cognition: Alert & Oriented-Person, Alert & Oriented-Place, Alert & Oriented- Time, Gsgey-Pweslbvs-Sbjnngwrx Memory: Immediate, Recent, Remote Intelligence: Below Average Insight Judgment: Poor (limited by infantile role acceptance) [facility] Assessment and Plan Ukna-[id number] Encounter Date: Apr 18, 2018 Olst-cf-[id number] Encounter Time: 10:00 [facility] Plan: Necessary Precautions, Individual/Group Therapy, Admin/Titrate Meds, Educate Patient Tobacco Medications: Bupropion (Wellbutrin), Varenicline (Chantix), Started, Refused, Not Appropriate Condition, Contrainidicated Multpiple Antipsychotics Used: No Problems: (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 Optional Permanent Comment: high probability of obstructive sleep apnea Last Edited By: Shalini Marie on Mar 30, 2018 13:52 Status: Chronic (2) Cannabis-induced psychotic disorder with delusions Status: Resolved (3) Persistent depressive disorder Optional Permanent Comment: probable PTSD symptoms exist Last Edited By: Shalini Marie on Apr 11, 2018 09:24 Status: Chronic (4) Cannabis use disorder, severe, in controlled environment Status: Chronic (5) Somatic complaints, multiple Optional Permanent Comment: continually seeks out interaction from staff for a multitude of somatic complaints that are unfounded, likely represents learned behavior and formation of the sick role. Last Edited By: Shalini Marie on Apr 02, 2018 08:08 Status: Chronic Condition 1. continue treatment. 2. await sleep study [facility] SHALINI MARIE MD Apr 18, 2018 13:41
[2018-04-18 14:42] VITALS: BP 122/88
[2018-04-18] MEDS: TOPIRAMATE 100 MG TAB PO SCH (20:51)
[2018-04-18] MEDS: DIAZEPAM 5 MG TAB PO SCH (20:51)
[2018-04-18 22:17] VITALS: BP 130/95
[2018-04-19 06:23] VITALS: BP 100/78
[2018-04-19] MEDS: FOLIC ACID/CYANOCOB/PYRIDOXINE PO SCH (07:56)
[2018-04-19] MEDS: DOCUSATE SODIUM 100 MG CAP PO SCH ×2 (07:56→21:08)
[2018-04-19] MEDS: guaiFENesin/P-EPHED 1 EA TABCR PO SCH ×2 (07:56→21:00)
[2018-04-19] MEDS: buPROPion SR 150 MG TABCR PO SCH ×2 (07:56→12:17)
[2018-04-19] MEDS: LIOTHYRONINE SODIUM 5 MCG TAB PO SCH (07:56)
[2018-04-19] MEDS: MULTIVITAMINS TAB PO SCH (07:56)
[2018-04-19] MEDS: CHOLECALCIFEROL 1000 UNIT TAB PO SCH (07:57)
--- NOTE | 2018-04-19 12:34 | BHS Progress Note ---
[facility] - Subjective Progress Notes Subjective Patient continues to do well on the unit, no other concerns, will continue to encourage growth and adjust to wearing mask as she awaits follow up sleep study. No other concerns. Suicidal Ideation: None Homicidal Ideation: None S - Objective Physical Exam Vital Signs Hematology Test 03/28/18 00:00 03/29/18 00:00 03/29/18 11:41 Urine HCG, Qualitative Negative (NEGATIVE) Urine Color Yellow Urine Clarity Turbid Urine pH 5.0 pH (4.8-9.5) Urine Specific [place] 1.029 Urine Protein Negative mg/dL (NEGATIVE) Urine Glucose (UA) Negative mg/dL (NEGATIVE) Urine Ketones Negative mg/dL (NEGATIVE) Urine Blood Moderate (NEGATIVE) Urine Nitrite Negative (NEGATIVE) Urine Bilirubin Negative (NEGATIVE) Urine Urobilinogen 2.0 mg/dL (0.2-1.9) Urine Leukocyte Esterase Small (NEGATIVE) Urine RBC 4 /HPF (0-2/HPF) Urine WBC 1 /HPF (0-5/HPF) Urine Squamous Epithelial Cells Many /LPF (</=FEW) Urine Bacteria Negative /HPF (NONE-FEW) Urine Mucus Few /HPF (NONE-FEW) Red Blood Count 4.50 M/uL (4.17-5.56) Mean Corpuscular Volume 92.0 fL (80.0-96.0) Mean Corpuscular Hemoglobin 31.4 pg (26.0-33.0) Mean Corpuscular Hemoglobin Concent 34.1 g/dL (32.0-36.0) Red Cell Distribution Width 13.2 % (11.5-14.5) Mean Platelet Volume 7.8 fL (7.2-11.1) Neutrophils (%) (Auto) 76.0 % (39.4-72.5) Lymphocytes (%) (Auto) 15.2 % (17.6-49.6) Monocytes (%) (Auto) 6.7 % (4.1-12.4) Eosinophils (%) (Auto) 1.4 % (0.4-6.7) Basophils (%) (Auto) 0.7 % (0.3-1.4) Nucleated RBC Relative Count (auto) 0.0 /100WBC Neutrophils # (Auto) 8.8 K/uL (2.0-7.4) Lymphocytes # (Auto) 1.8 K/uL (1.3-3.6) Monocytes # (Auto) 0.8 K/uL (0.3-1.0) Eosinophils # (Auto) 0.2 K/uL (0.0-0.5) Basophils # (Auto) 0.1 K/uL (0.0-0.1) Nucleated RBC Absolute Count (auto) 0.00 K/uL Sodium Level 137 mmol/L (137-145) Potassium Level 3.7 mmol/L (3.5-5.0) Chloride Level 102 mmol/L (98-107) Carbon Dioxide Level 25 mmol/L (22-31) Blood Urea Nitrogen 11 mg/dl (7-18) Creatinine 0.60 mg/dl (0.52-1.04) Glomerular Filtration Rate Calc > 60.0 Random Glucose 90 mg/dl (75-110) Calcium Level 9.4 mg/dl (8.4-10.2) Total Bilirubin 0.4 mg/dl (0.2-1.3) Aspartate Amino Transf (AST/SGOT) 94 U/L (0-35) Alanine Aminotransferase (ALT/SGPT) 67 U/L (0-56) Alkaline Phosphatase 77 U/L (0-126) Total Protein 6.3 g/dl (6.3-8.2) Albumin 3.7 g/dl (3.5-5.0) Vitamin B12 Level 177 pg/mL (180-914) Vitamin D 25-Hydroxy 19 ng/ml (30-100) Folate 21.9 ng/mL (>=5.9) Thyroid Stimulating Hormone (TSH) 1.48 uIU/ml (0.46-4.68) Free Thyroxine 1.41 ng/dl (0.78-2.19) Free Triiodothyronine 2.9 pg/mL (2.4-4.2) Chemistry Test 03/28/18 00:00 03/29/18 00:00 03/29/18 11:41 Urine HCG, Qualitative Negative (NEGATIVE) Urine Color Yellow Urine Clarity Turbid Urine pH 5.0 pH (4.8-9.5) Urine Specific [place] 1.029 Urine Protein Negative mg/dL (NEGATIVE) Urine Glucose (UA) Negative mg/dL (NEGATIVE) Urine Ketones Negative mg/dL (NEGATIVE) Urine Blood Moderate (NEGATIVE) Urine Nitrite Negative (NEGATIVE) Urine Bilirubin Negative (NEGATIVE) Urine Urobilinogen 2.0 mg/dL (0.2-1.9) Urine Leukocyte Esterase Small (NEGATIVE) Urine RBC 4 /HPF (0-2/HPF) Urine WBC 1 /HPF (0-5/HPF) Urine Squamous Epithelial Cells Many /LPF (</=FEW) Urine Bacteria Negative /HPF (NONE-FEW) Urine Mucus Few /HPF (NONE-FEW) White Blood Count 11.6 k/uL (4.5-11.0) Red Blood Count 4.50 M/uL (4.17-5.56) Hemoglobin 14.1 g/dL (12.0-16.0) Hematocrit 41.4 % (34.0-47.0) Mean Corpuscular Volume 92.0 fL (80.0-96.0) Mean Corpuscular Hemoglobin 31.4 pg (26.0-33.0) Mean Corpuscular Hemoglobin Concent 34.1 g/dL (32.0-36.0) Red Cell Distribution Width 13.2 % (11.5-14.5) Platelet Count 321 K/uL (150-450) Mean Platelet Volume 7.8 fL (7.2-11.1) Neutrophils (%) (Auto) 76.0 % (39.4-72.5) Lymphocytes (%) (Auto) 15.2 % (17.6-49.6) Monocytes (%) (Auto) 6.7 % (4.1-12.4) Eosinophils (%) (Auto) 1.4 % (0.4-6.7) Basophils (%) (Auto) 0.7 % (0.3-1.4) Nucleated RBC Relative Count (auto) 0.0 /100WBC Neutrophils # (Auto) 8.8 K/uL (2.0-7.4) Lymphocytes # (Auto) 1.8 K/uL (1.3-3.6) Monocytes # (Auto) 0.8 K/uL (0.3-1.0) Eosinophils # (Auto) 0.2 K/uL (0.0-0.5) Basophils # (Auto) 0.1 K/uL (0.0-0.1) Nucleated RBC Absolute Count (auto) 0.00 K/uL Glomerular Filtration Rate Calc > 60.0 Calcium Level 9.4 mg/dl (8.4-10.2) Total Bilirubin 0.4 mg/dl (0.2-1.3) Aspartate Amino Transf (AST/SGOT) 94 U/L (0-35) Alanine Aminotransferase (ALT/SGPT) 67 U/L (0-56) Alkaline Phosphatase 77 U/L (0-126) Total Protein 6.3 g/dl (6.3-8.2) Albumin 3.7 g/dl (3.5-5.0) Vitamin B12 Level 177 pg/mL (180-914) Vitamin D 25-Hydroxy 19 ng/ml (30-100) Folate 21.9 ng/mL (>=5.9) Thyroid Stimulating Hormone (TSH) 1.48 uIU/ml (0.46-4.68) Free Thyroxine 1.41 ng/dl (0.78-2.19) Free Triiodothyronine 2.9 pg/mL (2.4-4.2) Urinalysis Test 03/28/18 00:00 03/29/18 00:00 Urine HCG, Qualitative Negative (NEGATIVE) Urine Color Yellow Urine Clarity Turbid Urine pH 5.0 pH (4.8-9.5) Urine Specific [place] 1.029 Urine Protein Negative mg/dL (NEGATIVE) Urine Glucose (UA) Negative mg/dL (NEGATIVE) Urine Ketones Negative mg/dL (NEGATIVE) Urine Blood Moderate (NEGATIVE) Urine Nitrite Negative (NEGATIVE) Urine Bilirubin Negative (NEGATIVE) Urine Urobilinogen 2.0 mg/dL (0.2-1.9) Urine Leukocyte Esterase Small (NEGATIVE) Urine RBC 4 /HPF (0-2/HPF) Urine WBC 1 /HPF (0-5/HPF) Urine Squamous Epithelial Cells Many /LPF (</=FEW) Urine Bacteria Negative /HPF (NONE-FEW) Urine Mucus Few /HPF (NONE-FEW) Vital Signs Date Time Temp Pulse Resp B/P (MAP) Pulse Ox O2 Delivery O2 Flow Rate FiO2 04/19/18 13:54 98.4 102 112/78 (89) 97 Room Air 04/18/18 14:42 16 Muscle Strength and Tone: WNL Gait and Station: Steady (slowed unless prompted to accelerate. ) [facility] Medications Reviewed: Side Effects, Benefits of Medication, Risks Allergies Reviewed: Yes Mental Status Exam General Appearance: Casual, Well Groomed, Good Eye Contact, Cooperative, Polite, Good Interaction, Tearful, Psychomotor Retardation; No Bizarre Mannerisms, No Tics Speech: Clear, Spontaneous, Normal Rate, Normal Rhythm, Normal Volume (low at times), Normal Tone; No Delayed Mood: Dysthmic/Depressed (variable) Affect: Full and Appropriate (at times), Calm, Neutral; No Flat, No Withdrawn; Tearful (at times); No Anxious Thought Process: Organized, Logical, Goal Directed (I want to go home) Thought Content: No Suicidal Ideation, No Homicidal Ideation, No Delusions, No Auditory Halllucinations, No Visual Hallucinations, No Thought Broadcasting, No Ideas of Reference, No Obsessions, No Compulsions Sensorium: Clear Cognition: Alert & Oriented-Person, Alert & Oriented-Place, Alert & Oriented- Time, [id number] Memory: Immediate, Recent, Remote Intelligence: Below Average Insight Judgment: Poor (limited by infantile role acceptance) [facility] Assessment and Plan [id number] Encounter Date: Apr 19, 2018 Ijfb-[id number] Encounter Time: 08:00 [facility] Plan: Necessary Precautions, Individual/Group Therapy, Admin/Titrate Meds, Educate Patient Tobacco Medications: Bupropion (Wellbutrin), Varenicline (Chantix), Started, Refused, Not Appropriate Condition, Contrainidicated Multpiple Antipsychotics Used: No Problems: (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 Optional Permanent Comment: high probability of obstructive sleep apnea Last Edited By: Shalini Marie on Mar 30, 2018 13:52 Status: Chronic (2) Cannabis-induced psychotic disorder with delusions Status: Resolved (3) Persistent depressive disorder Optional Permanent Comment: probable PTSD symptoms exist Last Edited By: Shalini Marie on Apr 11, 2018 09:24 Status: Chronic (4) Cannabis use disorder, severe, in controlled environment Status: Chronic (5) Somatic complaints, multiple Optional Permanent Comment: continually seeks out interaction from staff for a multitude of somatic complaints that are unfounded, likely represents learned behavior and formation of the sick role. Last Edited By: Shalini Marie on Apr 02, 2018 08:08 Status: Chronic Condition 1. continue treatment. 2. no medication changes. SHALINI MARIE MD Apr 19, 2018 12:34
[2018-04-19 13:54] VITALS: BP 112/78
[2018-04-19] MEDS: TOPIRAMATE 100 MG TAB PO SCH (21:08)
[2018-04-19] MEDS: DIAZEPAM 5 MG TAB PO SCH (21:08)
[2018-04-19 21:39] VITALS: BP 117/88
[2018-04-20] MEDS: FOLIC ACID/CYANOCOB/PYRIDOXINE PO SCH (08:19)
[2018-04-20] MEDS: CHOLECALCIFEROL 1000 UNIT TAB PO SCH (08:19)
[2018-04-20] MEDS: DOCUSATE SODIUM 100 MG CAP PO SCH ×2 (08:19→21:02)
[2018-04-20] MEDS: guaiFENesin/P-EPHED 1 EA TABCR PO SCH ×2 (08:19→21:00)
[2018-04-20] MEDS: MULTIVITAMINS TAB PO SCH (08:19)
[2018-04-20] MEDS: buPROPion SR 150 MG TABCR PO SCH ×2 (08:19→12:14)
[2018-04-20] MEDS: LIOTHYRONINE SODIUM 5 MCG TAB PO SCH (08:19)
[2018-04-20 11:25] VITALS: BP 118/68
--- NOTE | 2018-04-20 11:48 | BHS Progress Note ---
[facility] - Subjective Progress Notes Subjective Patient continues to do well on the unit, continues to promote sick role symptoms if allowed to, but ability to recognize this trait is progressing. Patient awaits follow up sleep study, and [facility]. No medication changes. [facility] 2 [facility]. Will continue to encourage patient to wear C-pap mask unattached in order to prepare for sleep study. No other concerns. Suicidal Ideation: None Homicidal Ideation: None S - Objective Physical Exam Vital Signs Vital Signs Date Time Temp Pulse Resp B/P (MAP) Pulse Ox O2 Delivery O2 Flow Rate FiO2 04/19/18 21:39 97.1 100 117/88 (98) 95 Room Air 04/18/18 14:42 16 Hematology Test 03/28/18 00:00 03/29/18 00:00 03/29/18 11:41 Urine HCG, Qualitative Negative (NEGATIVE) Urine Color Yellow Urine Clarity Turbid Urine pH 5.0 pH (4.8-9.5) Urine Specific [place] 1.029 Urine Protein Negative mg/dL (NEGATIVE) Urine Glucose (UA) Negative mg/dL (NEGATIVE) Urine Ketones Negative mg/dL (NEGATIVE) Urine Blood Moderate (NEGATIVE) Urine Nitrite Negative (NEGATIVE) Urine Bilirubin Negative (NEGATIVE) Urine Urobilinogen 2.0 mg/dL (0.2-1.9) Urine Leukocyte Esterase Small (NEGATIVE) Urine RBC 4 /HPF (0-2/HPF) Urine WBC 1 /HPF (0-5/HPF) Urine Squamous Epithelial Cells Many /LPF (</=FEW) Urine Bacteria Negative /HPF (NONE-FEW) Urine Mucus Few /HPF (NONE-FEW) Red Blood Count 4.50 M/uL (4.17-5.56) Mean Corpuscular Volume 92.0 fL (80.0-96.0) Mean Corpuscular Hemoglobin 31.4 pg (26.0-33.0) Mean Corpuscular Hemoglobin Concent 34.1 g/dL (32.0-36.0) Red Cell Distribution Width 13.2 % (11.5-14.5) Mean Platelet Volume 7.8 fL (7.2-11.1) Neutrophils (%) (Auto) 76.0 % (39.4-72.5) Lymphocytes (%) (Auto) 15.2 % (17.6-49.6) Monocytes (%) (Auto) 6.7 % (4.1-12.4) Eosinophils (%) (Auto) 1.4 % (0.4-6.7) Basophils (%) (Auto) 0.7 % (0.3-1.4) Nucleated RBC Relative Count (auto) 0.0 /100WBC Neutrophils # (Auto) 8.8 K/uL (2.0-7.4) Lymphocytes # (Auto) 1.8 K/uL (1.3-3.6) Monocytes # (Auto) 0.8 K/uL (0.3-1.0) Eosinophils # (Auto) 0.2 K/uL (0.0-0.5) Basophils # (Auto) 0.1 K/uL (0.0-0.1) Nucleated RBC Absolute Count (auto) 0.00 K/uL Sodium Level 137 mmol/L (137-145) Potassium Level 3.7 mmol/L (3.5-5.0) Chloride Level 102 mmol/L (98-107) Carbon Dioxide Level 25 mmol/L (22-31) Blood Urea Nitrogen 11 mg/dl (7-18) Creatinine 0.60 mg/dl (0.52-1.04) Glomerular Filtration Rate Calc > 60.0 Random Glucose 90 mg/dl (75-110) Calcium Level 9.4 mg/dl (8.4-10.2) Total Bilirubin 0.4 mg/dl (0.2-1.3) Aspartate Amino Transf (AST/SGOT) 94 U/L (0-35) Alanine Aminotransferase (ALT/SGPT) 67 U/L (0-56) Alkaline Phosphatase 77 U/L (0-126) Total Protein 6.3 g/dl (6.3-8.2) Albumin 3.7 g/dl (3.5-5.0) Vitamin B12 Level 177 pg/mL (180-914) Vitamin D 25-Hydroxy 19 ng/ml (30-100) Folate 21.9 ng/mL (>=5.9) Thyroid Stimulating Hormone (TSH) 1.48 uIU/ml (0.46-4.68) Free Thyroxine 1.41 ng/dl (0.78-2.19) Free Triiodothyronine 2.9 pg/mL (2.4-4.2) Chemistry Test 11/28/18 00:00 03/29/18 00:00 03/29/18 11:41 Urine HCG, Qualitative Negative (NEGATIVE) Urine Color Yellow Urine Clarity Turbid Urine pH 5.0 pH (4.8-9.5) Urine Specific [place] 1.029 Urine Protein Negative mg/dL (NEGATIVE) Urine Glucose (UA) Negative mg/dL (NEGATIVE) Urine Ketones Negative mg/dL (NEGATIVE) Urine Blood Moderate (NEGATIVE) Urine Nitrite Negative (NEGATIVE) Urine Bilirubin Negative (NEGATIVE) Urine Urobilinogen 2.0 mg/dL (0.2-1.9) Urine Leukocyte Esterase Small (NEGATIVE) Urine RBC 4 /HPF (0-2/HPF) Urine WBC 1 /HPF (0-5/HPF) Urine Squamous Epithelial Cells Many /LPF (</=FEW) Urine Bacteria Negative /HPF (NONE-FEW) Urine Mucus Few /HPF (NONE-FEW) White Blood Count 11.6 k/uL (4.5-11.0) Red Blood Count 4.50 M/uL (4.17-5.56) Hemoglobin 14.1 g/dL (12.0-16.0) Hematocrit 41.4 % (34.0-47.0) Mean Corpuscular Volume 92.0 fL (80.0-96.0) Mean Corpuscular Hemoglobin 31.4 pg (26.0-33.0) Mean Corpuscular Hemoglobin Concent 34.1 g/dL (32.0-36.0) Red Cell Distribution Width 13.2 % (11.5-14.5) Platelet Count 321 K/uL (150-450) Mean Platelet Volume 7.8 fL (7.2-11.1) Neutrophils (%) (Auto) 76.0 % (39.4-72.5) Lymphocytes (%) (Auto) 15.2 % (17.6-49.6) Monocytes (%) (Auto) 6.7 % (4.1-12.4) Eosinophils (%) (Auto) 1.4 % (0.4-6.7) Basophils (%) (Auto) 0.7 % (0.3-1.4) Nucleated RBC Relative Count (auto) 0.0 /100WBC Neutrophils # (Auto) 8.8 K/uL (2.0-7.4) Lymphocytes # (Auto) 1.8 K/uL (1.3-3.6) Monocytes # (Auto) 0.8 K/uL (0.3-1.0) Eosinophils # (Auto) 0.2 K/uL (0.0-0.5) Basophils # (Auto) 0.1 K/uL (0.0-0.1) Nucleated RBC Absolute Count (auto) 0.00 K/uL Glomerular Filtration Rate Calc > 60.0 Calcium Level 9.4 mg/dl (8.4-10.2) Total Bilirubin 0.4 mg/dl (0.2-1.3) Aspartate Amino Transf (AST/SGOT) 94 U/L (0-35) Alanine Aminotransferase (ALT/SGPT) 67 U/L (0-56) Alkaline Phosphatase 77 U/L (0-126) Total Protein 6.3 g/dl (6.3-8.2) Albumin 3.7 g/dl (3.5-5.0) Vitamin B12 Level 177 pg/mL (180-914) Vitamin D 25-Hydroxy 19 ng/ml (30-100) Folate 21.9 ng/mL (>=5.9) Thyroid Stimulating Hormone (TSH) 1.48 uIU/ml (0.46-4.68) Free Thyroxine 1.41 ng/dl (0.78-2.19) Free Triiodothyronine 2.9 pg/mL (2.4-4.2) Urinalysis Test 03/28/18 00:00 03/29/18 00:00 Urine HCG, Qualitative Negative (NEGATIVE) Urine Color Yellow Urine Clarity Turbid Urine pH 5.0 pH (4.8-9.5) Urine Specific [place] 1.029 Urine Protein Negative mg/dL (NEGATIVE) Urine Glucose (UA) Negative mg/dL (NEGATIVE) Urine Ketones Negative mg/dL (NEGATIVE) Urine Blood Moderate (NEGATIVE) Urine Nitrite Negative (NEGATIVE) Urine Bilirubin Negative (NEGATIVE) Urine Urobilinogen 2.0 mg/dL (0.2-1.9) Urine Leukocyte Esterase Small (NEGATIVE) Urine RBC 4 /HPF (0-2/HPF) Urine WBC 1 /HPF (0-5/HPF) Urine Squamous Epithelial Cells Many /LPF (</=FEW) Urine Bacteria Negative /HPF (NONE-FEW) Urine Mucus Few /HPF (NONE-FEW) Muscle Strength and Tone: WNL Gait and Station: Steady (slowed unless prompted to accelerate. ) [facility] Medications Reviewed: Side Effects, Benefits of Medication, Risks Allergies Reviewed: Yes Mental Status Exam General Appearance: Casual, Well Groomed, Good Eye Contact, Cooperative, Polite, Good Interaction, Tearful, Psychomotor Retardation; No Bizarre Mannerisms, No Tics Speech: Clear, Spontaneous, Normal Rate, Normal Rhythm, Normal Volume (low at times), Normal Tone; No Delayed Mood: Dysthmic/Depressed (variable) Affect: Full and Appropriate (at times), Calm, Neutral; No Flat, No Withdrawn; Tearful (at times); No Anxious Thought Process: Organized, Logical, Goal Directed (I want to go home) Thought Content: No Suicidal Ideation, No Homicidal Ideation, No Delusions, No Auditory Halllucinations, No Visual Hallucinations, No Thought Broadcasting, No Ideas of Reference, No Obsessions, No Compulsions Sensorium: Clear Cognition: Alert & Oriented-Person, Alert & Oriented-Place, Alert & Oriented- Time, Jqtsj-Mqusjiyb-Hnlkjnpzb Memory: Immediate, Recent, Remote Intelligence: Below Average (slightly) Insight Judgment: Poor (limited by infantile role acceptance) [facility] Assessment and Plan [id number] Encounter Date: Apr 20, 2018 Ibmh-[id number] Encounter Time: 11:00 [facility] Plan: Necessary Precautions, Individual/Group Therapy, Admin/Titrate Meds, Educate Patient Tobacco Medications: Bupropion (Wellbutrin), Varenicline (Chantix), Started, Refused, Not Appropriate Condition, Contrainidicated Multpiple Antipsychotics Used: No Problems: (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 Optional Permanent Comment: high probability of obstructive sleep apnea Last Edited By: Shalini Marie on Mar 30, 2018 13:52 Status: Chronic (2) Cannabis-induced psychotic disorder with delusions Status: Resolved (3) Persistent depressive disorder Optional Permanent Comment: probable PTSD symptoms exist Last Edited By: Shalini Marie on Apr 11, 2018 09:24 Status: Chronic (4) Cannabis use disorder, severe, in controlled environment Status: Chronic (5) Somatic complaints, multiple Optional Permanent Comment: continually seeks out interaction from staff fo r a multitude of somatic complaints that are unfounded, likely represents learned behavior and formation of the sick role. Last Edited By: Shalini Marie on Apr 02, 2018 08:08 Status: Chronic Condition 1. continue treatment. 2. no medication changes. 3. [facility]. SHALINI MARIE MD Apr 20, 2018 11:48
[2018-04-20 17:45] VITALS: BP 118/70
[2018-04-20] MEDS: TOPIRAMATE 100 MG TAB PO SCH (21:02)
[2018-04-20] MEDS: DIAZEPAM 5 MG TAB PO SCH (21:02)
[2018-04-21] MEDS: CHOLECALCIFEROL 1000 UNIT TAB PO SCH (08:24)
[2018-04-21] MEDS: MULTIVITAMINS TAB PO SCH (08:24)
[2018-04-21] MEDS: DOCUSATE SODIUM 100 MG CAP PO SCH ×2 (08:24→20:11)
[2018-04-21] MEDS: FOLIC ACID/CYANOCOB/PYRIDOXINE PO SCH (08:24)
[2018-04-21] MEDS: guaiFENesin/P-EPHED 1 EA TABCR PO SCH (08:25)
[2018-04-21] MEDS: LIOTHYRONINE SODIUM 5 MCG TAB PO SCH (08:25)
[2018-04-21] MEDS: buPROPion SR 150 MG TABCR PO SCH ×2 (08:26→12:07)
--- NOTE | 2018-04-21 11:35 | BHS Progress Note ---
[facility] - Subjective Progress Notes Subjective Pt seen in conference room with team. Pt tearful and anxious today, worried about her sleep study, that she won't be able to tolerate the mask. Pt responds minimally to support. Pt tolerating current medications well, without side effects. Will give her hydroxazine pre-med prior to sleep study to minimize anxiety. Awaiting transfer to [facility]. Suicidal Ideation: None Homicidal Ideation: None [facility] - Objective Physical Exam Vital Signs Vital Signs 04/20/18 17:45 Temp 97.9 Pulse 119 Resp 16 B/P (MAP) 118/70 (86) Pulse Ox 94 O2 Delivery Room Air Muscle Strength and Tone: WNL Gait and Station: Steady (slowed unless prompted to accelerate. ) [facility] Medications Reviewed: Side Effects, Benefits of Medication, Risks Allergies Reviewed: Yes Mental Status Exam General Appearance: Casual, Well Groomed, Good Eye Contact, Cooperative, Polite, Good Interaction, Tearful, Psychomotor Retardation; No Bizarre Mannerisms, No Tics Speech: Clear, Spontaneous, Normal Rate, Normal Rhythm, Normal Volume (low at times), Normal Tone; No Delayed Mood: Dysthmic/Depressed (variable) Affect: Calm, Neutral; No Flat, No Withdrawn; Tearful (at times); No Anxious Thought Process: Organized, Logical, Goal Directed (I want to go home) Thought Content: No Suicidal Ideation, No Homicidal Ideation, No Delusions, No Auditory Halllucinations, No Visual Hallucinations, No Thought Broadcasting, No Ideas of Reference, No Obsessions, No Compulsions Sensorium: Clear Cognition: Alert & Oriented-Person, Alert & Oriented-Place, Alert & Oriented- Time, [id number]-[id number] Memory: Immediate, Recent, Remote Intelligence: Below Average (slightly) Insight Judgment: Poor (limited by infantile role acceptance) [facility] Assessment and Plan [id number] Encounter Date: Apr 21, 2018 Yuuh-gi-Afhj Encounter Time: 09:30 [facility] Plan: Necessary Precautions, Individual/Group Therapy, Admin/Titrate Meds, Educate Patient Tobacco Medications: Bupropion (Wellbutrin), Varenicline (Chantix), Started, Refused, Not Appropriate Condition, Contrainidicated Multpiple Antipsychotics Used: No Problems: (1) Cannabis-induced psychotic disorder with delusions Status: Resolved (2) Mood disorder due to a general medical condition Optional Permanent Comment: high probability of obstructive sleep apnea Last Edited By: Theo Steele on Mar 30, 2018 13:52 Status: Chronic (3) Cannabis use disorder, severe, in controlled environment Status: Chronic (4) Somatic complaints, multiple Optional Permanent Comment: continually seeks out interaction from staff for a multitude of somatic complaints that are unfounded, likely represents learned behavior and formation of the sick role. Last Edited By: Theo Steele on Apr 02, 2018 08:08 Status: Chronic (5) Persistent depressive disorder Optional Permanent Comment: probable PTSD symptoms exist Last Edited By: Theo Steele on Apr 11, 2018 09:24 Status: Chronic GENA KU MD Apr 21, 2018 11:35
[2018-04-21 12:35] VITALS: BP 126/70
[2018-04-21] MEDS ORDERED: hydrOXYzine PAMOATE 25 MG CAP PO ONE ×2 (20:00)
[2018-04-21] MEDS: DIAZEPAM 5 MG TAB PO SCH (20:11)
[2018-04-21] MEDS: TOPIRAMATE 100 MG TAB PO SCH (20:11)
[2018-04-22] MEDS: DOCUSATE SODIUM 100 MG CAP PO SCH ×2 (08:21→21:06)
[2018-04-22] MEDS: CHOLECALCIFEROL 1000 UNIT TAB PO SCH (08:21)
[2018-04-22] MEDS: LIOTHYRONINE SODIUM 5 MCG TAB PO SCH (08:21)
[2018-04-22] MEDS: buPROPion SR 150 MG TABCR PO SCH ×2 (08:21→12:44)
[2018-04-22] MEDS: MULTIVITAMINS TAB PO SCH (08:21)
[2018-04-22] MEDS: FOLIC ACID/CYANOCOB/PYRIDOXINE PO SCH (08:21)
--- NOTE | 2018-04-22 11:24 | BHS Progress Note ---
[facility] - Subjective Progress Notes Subjective Pt seen in conference room with team. Pt had her 2nd half of the sleep study last night. She says it went well, she slept all night except for one brief awakening. She reports significant anxiety before the study, says going over to the sleep lab, and having wires and tape put on her was very overwhelming-- she even became tearful talking about it. We tried to provide support and positive feedback, and to encourage her positive "transference" to her upcoming new c- pap. She denies SI, mood tends to be overall anxious, she still has frequent so matic complaints. Continue current tx plan-- awaiting [facility] placement on May 03. Suicidal Ideation: None Homicidal Ideation: None [facility] - Objective Physical Exam Vital Signs Vital Signs 04/21/18 12:35 Temp 98.0 Pulse 135 Resp 18 B/P (MAP) 126/70 (88) Pulse Ox 96 O2 Delivery Room Air Muscle Strength and Tone: WNL Gait and Station: Steady (slowed unless prompted to accelerate. ) [facility] Medications Reviewed: Side Effects, Benefits of Medication, Risks Allergies Reviewed: Yes Mental Status Exam General Appearance: Casual, Well Groomed, Good Eye Contact, Cooperative, Polite, Good Interaction, Tearful, Psychomotor Retardation; No Bizarre Mannerisms, No Tics Speech: Clear, Spontaneous, Normal Rate, Normal Rhythm, Normal Volume (quiet), Normal Tone Mood: Dysthmic/Depressed (variable) Affect: Calm, Neutral; No Flat, No Withdrawn; Tearful (at times), Anxious (often expresses worry over seemingly minor stressors, like having tape put on her for sleep study) Thought Process: Organized, Logical, Goal Directed Thought Content: No Suicidal Ideation, No Homicidal Ideation, No Delusions, No Auditory Halllucinations, No Visual Hallucinations, No Thought Broadcasting, No Ideas of Reference, No Obsessions, No Compulsions Sensorium: Clear Cognition: Alert & Oriented-Person, Alert & Oriented-Place, Alert & Oriented- Time, Swerg-[id number]-[id number] Memory: Immediate, Recent, Remote Intelligence: Below Average (slightly) Insight Judgment: Poor (limited by infantile role acceptance) [facility] Assessment and Plan [id number] Encounter Date: Apr 22, 2018 [id number] Encounter Time: 09:00 [facility] Plan: Necessary Precautions, Individual/Group Therapy, Admin/Titrate Meds, Educate Patient Tobacco Medications: Bupropion (Wellbutrin), Started Multpiple Antipsychotics Used: No Problems: (1) Cannabis-induced psychotic disorder with delusions Status: Resolved (2) Mood disorder due to a general medical condition Optional Permanent Comment: high probability of obstructive sleep apnea Last Edited By: Theo Steele on Mar 30, 2018 13:52 Status: Chronic (3) Cannabis use disorder, severe, in controlled environment Status: Chronic (4) Somatic complaints, multiple Optional Permanent Comment: continually seeks out interaction from staff for a multitude of somatic complaints that are unfounded, likely represents learned behavior and formation of the sick role. Last Edited By: Theo Steele on Apr 02, 2018 08:08 Status: Chronic (5) Persistent depressive disorder Optional Permanent Comment: probable PTSD symptoms exist Last Edited By: Theo Steele on Apr 11, 2018 09:24 Status: Chronic GENA KU MD Apr 22, 2018 11:24
[2018-04-22 13:25] VITALS: BP 116/68
[2018-04-22] MEDS: TOPIRAMATE 100 MG TAB PO SCH (21:06)
[2018-04-22] MEDS: DIAZEPAM 5 MG TAB PO SCH (21:07)
[2018-04-23] MEDS: DOCUSATE SODIUM 100 MG CAP PO SCH ×2 (08:15→20:53)
[2018-04-23] MEDS: buPROPion SR 150 MG TABCR PO SCH ×2 (08:15→12:22)
[2018-04-23] MEDS: FOLIC ACID/CYANOCOB/PYRIDOXINE PO SCH (08:16)
[2018-04-23] MEDS: MULTIVITAMINS TAB PO SCH (08:16)
[2018-04-23] MEDS: CHOLECALCIFEROL 1000 UNIT TAB PO SCH (08:16)
[2018-04-23] MEDS: LIOTHYRONINE SODIUM 5 MCG TAB PO SCH (08:16)
[2018-04-23 09:25] VITALS: BP 112/76
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
--- NOTE | 2018-04-23 12:48 | Medical Nutrition Therapy ---
Nutrition Anthropometrics Height (Inches): 62.00 Height (Calculated Centimeters: 157.686228 Weight (Pounds): 213 Weight (Calculated Kilograms): 96.615 BMI: 39. Gage Nutrition Score: Adequate Gage Nutrition Risk Score: 22 Dietary Referral Nutrition Risk Factors: Unplanned Loss >10lbs Nutrition Risk Comment: Physical Findings Physical Appearance: Obese BMI 30-39 Skin Appearance Skin Appearance: Edema Edema Location Modifier: Edema Location: Type of Edema: Degree of Edema: Gastrointestinal Symptoms GI Symtoms: Tube Present: Bowel Sounds: Recent Bowel Pattern: Stool Characteristics: Nutritional Education Nutrition Education Topic: Weight Loss Diet Learning Readiness: Not Ready Teaching Methods: Discussion Teaching Recipient: Patient Nutrition Counseling: Attempted MNT for wt loss. Reviewed meal plan however pt was crying stated was forced to be here. Will try back at a later date. Nutrition Monitoring & Eval RD Patient Assessment Time: [address] Assessment Type: RD Education Nutritional Comment: attempted MNT for wt loss but pt not ready VIELKA SNIDER Apr 23, 2018 12:48
[2018-04-23] MEDS: TOPIRAMATE 100 MG TAB PO SCH (20:53)
[2018-04-23] MEDS: DIAZEPAM 5 MG TAB PO SCH (20:54)
[2018-04-24 06:00] VITALS: BP 109/79
[2018-04-24] MEDS: MULTIVITAMINS TAB PO SCH (08:25)
[2018-04-24] MEDS: FOLIC ACID/CYANOCOB/PYRIDOXINE PO SCH (08:25)
[2018-04-24] MEDS: DOCUSATE SODIUM 100 MG CAP PO SCH ×2 (08:25→21:46)
[2018-04-24] MEDS: buPROPion SR 150 MG TABCR PO SCH ×2 (08:25→11:45)
[2018-04-24] MEDS: CHOLECALCIFEROL 1000 UNIT TAB PO SCH (08:25)
[2018-04-24 12:20] VITALS: BP 118/80
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
--- NOTE | 2018-04-24 15:03 | EKG ---
FACILITY: [facility] [place] PATIENT NAME: DALI KAPLAN : [id number] MR: [id number] V: [id number] EXAM DATE: ORDERING PHYSICIAN: LILI HERNANDEZ TECHNOLOGIST: Test Reason : Starting Citalopram- Baseline Blood Pressure : / mmHG Vent. Rate : 106 BPM Atrial Rate : 106 BPM P-R Int : 138 ms QRS Dur : 086 ms QT Int : 332 ms P-R-T Axes : 073 068 058 degrees QTc Int : 441 ms Sinus tachycardia Otherwise normal ECG No previous ECGs available Confirmed by TRISTAN PALM ([id number] on 04/24/2018 3:55:37 PM Referred By: Confirmed By:TRISTAN PALM
[2018-04-24] MEDS: CITALOPRAM HYDROBROM 20 MG TAB PO SCH (21:46)
[2018-04-24] MEDS: TOPIRAMATE 100 MG TAB PO SCH (21:46)
[2018-04-24] MEDS: DIAZEPAM 5 MG TAB PO SCH (21:47)
[2018-04-25] MEDS: DOCUSATE SODIUM 100 MG CAP PO SCH ×2 (08:17→20:47)
[2018-04-25] MEDS: MULTIVITAMINS TAB PO SCH (08:17)
[2018-04-25] MEDS: FOLIC ACID/CYANOCOB/PYRIDOXINE PO SCH (08:18)
[2018-04-25] MEDS: CHOLECALCIFEROL 1000 UNIT TAB PO SCH (08:20)
--- NOTE | 2018-04-25 13:06 | BHS Progress Note ---
BHS - Subjective Progress Notes Subjective We met with Isis this morning. She continues to be very anxious to go home. Her mood is better, but she still has some depression. We focused on discharge planning today. I explained why it is important to address the sleep apnea and both Isis and her mother understand what this is and why we need to treat it. I spoke to Precious in cardio-pulmonary. The report of the second study is still pending. She did not feel that this should be a barrier to discharge and what we need to do is to set up an appointment with Isis's PCP to initiate this treatment and manage the CPAP as and outpatient respiratory therapy. With Isis's permission, I called Dr. Lexii Vargas, her PCP. After reviewing our initial sleep study findings, we discussed aftercare and she agreed to assume management of Isis's YANIV. We also made Isis an appointment to see her in the office on May 03. So far, Isis has had no problems with the citalopram. She is willing to continue it and follow-up with outpatient care. Suicidal Ideation: None Homicidal Ideation: None BHS - Objective Physical Exam Gait and Station: Steady [facility] Medications Reviewed: Side Effects (denies), Benefits of Medication Allergies Reviewed: Yes Mental Status Exam General Appearance: Casual, Well Groomed, Good Eye Contact, Cooperative, Polite, Good Interaction, Tearful (cries when talking about how badly she wants to go home. Again, does not want to go to [facility]. ), Psychomotor Retardation; No Bizarre Mannerisms, No Tics Speech: Clear, Spontaneous, Normal Rate, Normal Rhythm, Normal Volume, Normal Tone Mood: Dysthmic/Depressed Affect: Calm, Sad; No Flat, No Withdrawn; Tearful, Anxious Thought Process: Organized, Logical, Goal Directed Thought Content: No Suicidal Ideation, No Homicidal Ideation, No Delusions, No Auditory Halllucinations, No Visual Hallucinations, No Thought Broadcasting, No Ideas of Reference, No Obsessions, No Compulsions; Other (I could find no signs of current or prior psychotic thought processes during this interview) Sensorium: Clear Cognition: Alert & Oriented-Person, Alert & Oriented-Place, Alert & Oriented- Time, Tuhvq-Idyfvbaw-Peoomjudd Memory: Immediate, Recent, Remote (see history) Intelligence: Other (low-average range based on testing) Insight Judgment: Fair (In spite of her limitations, Isis seems to be making resonable plans. ) [facility] Assessment and Plan Okue-rt-Bugv Encounter Date: Apr 25, 2018 Mefl-ou-Yfjz Encounter Time: 09:00 [facility] Plan: Necessary Precautions, Individual/Group Therapy, Admin/Titrate Meds, Educate Patient (dietary consult to help develop a plan to address obesity) Tobacco Medications: Bupropion (Wellbutrin), Started Multpiple Antipsychotics Used: No Problems: (1) Major depression, recurrent Status: Chronic (2) Generalized anxiety disorder with panic attacks Status: Chronic (3) Post-traumatic stress disorder Status: Chronic (4) Obstructive sleep apnea of adult Status: Chronic (5) Intellectual disability Status: Chronic Condition In my opinion, Isis has achieved maximum benefit from hospitalization. She is not a danger to herself or others. She is able to get on-going treatment in the community and motivated to do so. Her YANIV is still untreated. However, there is no advantage to keeping her in the hospital while we await the recommendations of her last study. This is a chronic condition. She has an appointment to see Dr. Vargas on May 03 to get started with outpatient RT. I realize that we just started Isis on citalopram. Again, it will take s ome time to see how effective this will be at improving Isis's mood, but this can be done at outpatient follow-up. She is tolerating the medication well. She has no psychotic symptoms, no thoughts of suicide and is highly motivated to do whatever she needs to do to get better and to remain at home. Problem Qualifiers (1) Major depression, recurrent: Active/Remission status: currently active Major depression episode severity: moderate Qualified Codes: F33.1 - Major depressive disorder, recurrent, moderate MARY,JANE Apr 25, 2018 13:06
[2018-04-25 20:42] VITALS: BP 131/96
[2018-04-25] MEDS: CITALOPRAM HYDROBROM 20 MG TAB PO SCH (20:47)
[2018-04-25] MEDS: TOPIRAMATE 100 MG TAB PO SCH (20:47)
[2018-04-26 08:45] LABS: PLATELET COUNT, AUTOMATED 340 K/uL (150-450)
[2018-04-26] MEDS: DOCUSATE SODIUM 100 MG CAP PO SCH ×2 (09:00→20:47)
[2018-04-26] MEDS: FOLIC ACID/CYANOCOB/PYRIDOXINE PO SCH (09:00)
[2018-04-26] MEDS: CITALOPRAM HYDROBROM 20 MG TAB PO SCH (09:00)
[2018-04-26] MEDS: MULTIVITAMINS TAB PO SCH (09:00)
[2018-04-26] MEDS: CHOLECALCIFEROL 1000 UNIT TAB PO SCH (09:00)
--- NOTE | 2018-04-26 12:33 | BHS Progress Note ---
BHS - Subjective Progress Notes Subjective Patient remains very pleasant on the unit. Patient reports that she indeed will abstain from illicit substance and wear C-pap machine for severe sleep apnea. Patient reports mood is okay, and no difference can be detected regarding switch from Wellbutrin to celexa. Will plan to go forward with release to home at this point, with continued outpatient care in [place]. Patient denies any other complaints today. Suicidal Ideation: None Homicidal Ideation: None S - Objective Physical Exam Vital Signs Vital Signs Date Time Temp Pulse Resp B/P (MAP) Pulse Ox O2 Delivery O2 Flow Rate FiO2 04/25/18 20:42 97.9 97 131/96 (108) 96 Room Air 04/24/18 12:20 16 Hematology Test 03/28/18 00:00 03/29/18 11:41 04/26/18 00:00 04/26/18 07:17 Urine HCG, Qualitative Negative (NEGATIVE) Vitamin D 25-Hydroxy 19 ng/ml (30-100) Thyroid Stimulating Hormone (TSH) 1.48 uIU/ml (0.46-4.68) Free Thyroxine 1.41 ng/dl (0.78-2.19) Free Triiodothyronine 2.9 pg/mL (2.4-4.2) Urine Color Straw Urine Clarity Clear Urine pH 7.0 pH (4.8-9.5) Urine Specific [place] 1.001 Urine Protein Negative mg/dL (NEGATIVE) Urine Glucose (UA) Negative mg/dL (NEGATIVE) Urine Ketones Negative mg/dL (NEGATIVE) Urine Blood Small (NEGATIVE) Urine Nitrite Negative (NEGATIVE) Urine Bilirubin Negative (NEGATIVE) Urine Urobilinogen Negative mg/dL (0.2-1.9) Urine Leukocyte Esterase Negative (NEGATIVE) Urine RBC None /HPF (0-2/HPF) Urine WBC None /HPF (0-5/HPF) Urine Squamous Epithelial Cells Many /LPF (</=FEW) Urine Bacteria Few /HPF (NONE-FEW) Urine Mucus None /HPF (NONE-FEW) Whole Blood Glucose 83 mg/DL (75-110) Test 04/26/18 08:38 Red Blood Count 4.76 M/uL (4.17-5.56) Mean Corpuscular Volume 92.9 fL (80.0-96.0) Mean Corpuscular Hemoglobin 31.1 pg (26.0-33.0) Mean Corpuscular Hemoglobin Concent 33.5 g/dL (32.0-36.0) Red Cell Distribution Width 13.6 % (11.5-14.5) Mean Platelet Volume 7.5 fL (7.2-11.1) Neutrophils (%) (Auto) 81.1 % (39.4-72.5) Lymphocytes (%) (Auto) 12.4 % (17.6-49.6) Monocytes (%) (Auto) 5.1 % (4.1-12.4) Eosinophils (%) (Auto) 0.7 % (0.4-6.7) Basophils (%) (Auto) 0.7 % (0.3-1.4) Nucleated RBC Relative Count (auto) 0.0 /100WBC Neutrophils # (Auto) 10.2 K/uL (2.0-7.4) Lymphocytes # (Auto) 1.6 K/uL (1.3-3.6) Monocytes # (Auto) 0.6 K/uL (0.3-1.0) Eosinophils # (Auto) 0.1 K/uL (0.0-0.5) Basophils # (Auto) 0.1 K/uL (0.0-0.1) Nucleated RBC Absolute Count (auto) 0.00 K/uL Peripheral Blood Smear No Y/N Erythrocyte Sedimentation Rate 6 mm/HOUR (0-20) Sodium Level 139 mmol/L (137-145) Potassium Level 4.3 mmol/L (3.5-5.0) Chloride Level 105 mmol/L (98-107) Carbon Dioxide Level 20 mmol/L (22-31) Blood Urea Nitrogen 11 mg/dl (7-18) Creatinine 0.70 mg/dl (0.52-1.04) Glomerular Filtration Rate Calc > 60.0 Random Glucose 82 mg/dl (75-110) Calcium Level 9.7 mg/dl (8.4-10.2) Magnesium Level 1.9 mg/dl (1.7-2.2) Total Bilirubin 0.5 mg/dl (0.2-1.3) Aspartate Amino Transf (AST/SGOT) 18 U/L (0-35) Alanine Aminotransferase (ALT/SGPT) 28 U/L (0-56) Alkaline Phosphatase 79 U/L (0-126) C-Reactive Protein < 0.5 mg/dl (<1.0) Total Protein 6.8 g/dl (6.3-8.2) Albumin 3.9 g/dl (3.5-5.0) Chemistry Test 03/28/18 00:00 03/29/18 11:41 04/26/18 00:00 04/26/18 07:17 Urine HCG, Qualitative Negative (NEGATIVE) Vitamin D 25-Hydroxy 19 ng/ml (30-100) Thyroid Stimulating Hormone (TSH) 1.48 uIU/ml (0.46-4.68) Free Thyroxine 1.41 ng/dl (0.78-2.19) Free Triiodothyronine 2.9 pg/mL (2.4-4.2) Urine Color Straw Urine Clarity Clear Urine pH 7.0 pH (4.8-9.5) Urine Specific [place] 1.001 Urine Protein Negative mg/dL (NEGATIVE) Urine Glucose (UA) Negative mg/dL (NEGATIVE) Urine Ketones Negative mg/dL (NEGATIVE) Urine Blood Small (NEGATIVE) Urine Nitrite Negative (NEGATIVE) Urine Bilirubin Negative (NEGATIVE) Urine Urobilinogen Negative mg/dL (0.2-1.9) Urine Leukocyte Esterase Negative (NEGATIVE) Urine RBC None /HPF (0-2/HPF) Urine WBC None /HPF (0-5/HPF) Urine Squamous Epithelial Cells Many /LPF (</=FEW) Urine Bacteria Few /HPF (NONE-FEW) Urine Mucus None /HPF (NONE-FEW) Whole Blood Glucose 83 mg/DL (75-110) Test 04/26/18 08:38 White Blood Count 12.5 k/uL (4.5-11.0) Red Blood Count 4.76 M/uL (4.17-5.56) Hemoglobin 14.8 g/dL (12.0-16.0) Hematocrit 44.3 % (34.0-47.0) Mean Corpuscular Volume 92.9 fL (80.0-96.0) Mean Corpuscular Hemoglobin 31.1 pg (26.0-33.0) Mean Corpuscular Hemoglobin Concent 33.5 g/dL (32.0-36.0) Red Cell Distribution Width 13.6 % (11.5-14.5) Platelet Count 340 K/uL (150-450) Mean Platelet Volume 7.5 fL (7.2-11.1) Neutrophils (%) (Auto) 81.1 % (39.4-72.5) Lymphocytes (%) (Auto) 12.4 % (17.6-49.6) Monocytes (%) (Auto) 5.1 % (4.1-12.4) Eosinophils (%) (Auto) 0.7 % (0.4-6.7) Basophils (%) (Auto) 0.7 % (0.3-1.4) Nucleated RBC Relative Count (auto) 0.0 /100WBC Neutrophils # (Auto) 10.2 K/uL (2.0-7.4) Lymphocytes # (Auto) 1.6 K/uL (1.3-3.6) Monocytes # (Auto) 0.6 K/uL (0.3-1.0) Eosinophils # (Auto) 0.1 K/uL (0.0-0.5) Basophils # (Auto) 0.1 K/uL (0.0-0.1) Nucleated RBC Absolute Count (auto) 0.00 K/uL Peripheral Blood Smear No Y/N Erythrocyte Sedimentation Rate 6 mm/HOUR (0-20) Glomerular Filtration Rate Calc > 60.0 Calcium Level 9.7 mg/dl (8.4-10.2) Magnesium Level 1.9 mg/dl (1.7-2.2) Total Bilirubin 0.5 mg/dl (0.2-1.3) Aspartate Amino Transf (AST/SGOT) 18 U/L (0-35) Alanine Aminotransferase (ALT/SGPT) 28 U/L (0-56) Alkaline Phosphatase 79 U/L (0-126) C-Reactive Protein < 0.5 mg/dl (<1.0) Total Protein 6.8 g/dl (6.3-8.2) Albumin 3.9 g/dl (3.5-5.0) Urinalysis Test 03/28/18 00:00 04/26/18 00:00 Urine HCG, Qualitative Negative (NEGATIVE) Urine Color Straw Urine Clarity Clear Urine pH 7.0 pH (4.8-9.5) Urine Specific [place] 1.001 Urine Protein Negative mg/dL (NEGATIVE) Urine Glucose (UA) Negative mg/dL (NEGATIVE) Urine Ketones Negative mg/dL (NEGATIVE) Urine Blood Small (NEGATIVE) Urine Nitrite Negative (NEGATIVE) Urine Bilirubin Negative (NEGATIVE) Urine Urobilinogen Negative mg/dL (0.2-1.9) Urine Leukocyte Esterase Negative (NEGATIVE) Urine RBC None /HPF (0-2/HPF) Urine WBC None /HPF (0-5/HPF) Urine Squamous Epithelial Cells Many /LPF (</=FEW) Urine Bacteria Few /HPF (NONE-FEW) Urine Mucus None /HPF (NONE-FEW) Muscle Strength and Tone: WNL Gait and Station: Steady [facility] Medications Reviewed: Side Effects (denies), Benefits of Medication Allergies Reviewed: Yes Mental Status Exam General Appearance: Casual, Well Groomed, Good Eye Contact, Cooperative, Polite, Good Interaction; No Tearful, No Psychomotor Agitation; Psychomotor Retardation (mild at imes); No Bizarre Mannerisms, No Tics Speech: Clear, Spontaneous, Normal Rate, Normal Rhythm, Normal Volume, Normal Tone Mood: Euthymic (improved) Affect: Full and Appropriate (at times), Calm; No Sad, No Flat, No Withdrawn, No Tearful, No Anxious Thought Process: Organized, Logical, Goal Directed; No Loose Associations, No Flight of Ideas Thought Content: No Suicidal Ideation, No Homicidal Ideation, No Delusions, No Auditory Halllucinations, No Visual Hallucinations, No Thought Broadcasting, No Ideas of Reference, No Obsessions, No Compulsions Sensorium: Clear Cognition: Alert & Oriented-Person, Alert & Oriented-Place, Alert & Oriented- Time, [id number] Memory: Immediate, Recent, Remote Intelligence: Other (low-average range based on testing) Insight Judgment: Fair (outpatient support is crucial, to continue to distance self from solidification of sick role. ) Result Diagram: 04/26/18 0838 04/26/18 0838 [facility] Assessment and Plan [id number] Encounter Date: Apr 26, 2018 [id number] Encounter Time: 10:00 [facility] Plan: Necessary Precautions, Individual/Group Therapy, Admin/Titrate Meds, Educate Patient (dietary consult to help develop a plan to address obesity) Tobacco Medications: Bupropion (Wellbutrin), Started Multpiple Antipsychotics Used: No Problems: (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 Optional Permanent Comment: severe obstructive sleep apnea Last Edited By: Shalini Marie on Apr 26, 2018 12:30 Status: Chronic (2) Cannabis-induced psychotic disorder with delusions Status: Resolved (3) Persistent depressive disorder Optional Permanent Comment: probable PTSD symptoms exist Last Edited By: Shalini Marie on Apr 11, 2018 09:24 Status: Chronic (4) Cannabis use disorder, severe, in controlled environment Status: Chronic (5) Somatic complaints, multiple Optional Permanent Comment: continually seeks out interaction from staff for a multitude of somatic complaints that are unfounded, likely represents learned behavior and formation of the sick role. Last Edited By: Shalini Marie on Apr 02, 2018 08:08 Status: Chronic Condition 1. finalize plans for discharge to home. 2. possible discharge tomorrow. SHALINI MARIE MD Apr 26, 2018 12:33
[2018-04-26 17:25] VITALS: BP 114/70
[2018-04-26] MEDS: TOPIRAMATE 100 MG TAB PO SCH (20:47)
[2018-04-27] MEDS ORDERED: CALAMINE TP PRN (07:10)
[2018-04-27] MEDS ORDERED: ACETAMINOPHEN 325 MG TAB PO PRN (07:10)
[2018-04-27] MEDS ORDERED: [UNRECOGNIZED DRUG - OTHER] TP PRN (07:10)
[2018-04-27] MEDS ORDERED: MAG HYD/AL HYD/SIMETH 30ML UDC PO PRN (07:10)
[2018-04-27] MEDS ORDERED: IBUPROFEN 600 MG TAB PO PRN (07:10)
[2018-04-27] MEDS: FOLIC ACID/CYANOCOB/PYRIDOXINE PO SCH (08:12)
[2018-04-27] MEDS: CITALOPRAM HYDROBROM 20 MG TAB PO SCH (08:12)
[2018-04-27] MEDS: MULTIVITAMINS TAB PO SCH (08:13)
[2018-04-27] MEDS: CHOLECALCIFEROL 1000 UNIT TAB PO SCH (08:13)
[2018-04-27] MEDS ORDERED: DOCUSATE SODIUM 100 MG CAP PO SCH (09:00)
[2018-04-27] MEDS ORDERED: ALB18R INH (10:40)
[2018-04-27] MEDS ORDERED: DOCU-416 PO (10:41)
[2018-04-27] MEDS ORDERED: CHOL10005 PO (10:41)
[2018-04-27] MEDS ORDERED: CITA-156 PO (10:41)
[2018-04-27] MEDS ORDERED: MULT-111 (10:42)
[2018-04-27] MEDS ORDERED: TOPI-121 PO (10:42)
--- NOTE | 2018-04-30 08:39 | SCHAAF DISCHARGE ---
DATE OF ADMISSION: March 28, 2018 DATE OF DISCHARGE: April 27, 2018 ATTENDING PHYSICIAN Theo Steele MD The patient was seen at approximately 10:30 hours on April 27, 2018 for note concerning this dictation. FINAL DIAGNOSES 1. Persisting depressive disorder and mood disorder secondary to general medical conditions. 2. Obstructive sleep apnea, severe. 3. Cannabis use disorder in partial remission. 4. Social stressors and embracing of sick behaviors. The patient having well intention to family members who she will reside with. REASON FOR ADMISSION This is a 23-year-old female who was originally in the [facility] on an emergency detainment from the [facility] where the patient is from. The patient was committed to the [facility] in [place] and was eventually transferred to [facility] to await placement at the [facility]. Upon arrival to the unit, the patient was very lethargic. Her symptoms of admission to the [facility] required sedating antipsychotics of which many she was tried on. Upon arrival, it was thought that the patient's psychosis which could have been largely induced by heavy use of marijuana on top of untreated obstructive sleep apnea, would continue to improve in the absence of antipsychotics. Antipsychotic medications were stopped. The patient was started on Wellbutrin, eventually Cytomel as well, and Topamax for chronic pain, PTSD symptoms, and headaches. The patient continued to make slow improvements and gain. The patient noted to quickly not be displaying any psychotic behaviors or psychotic symptoms in the absence of antipsychotics and continued to improve. It was also noted that patient may be of somewhat low intellectual functioning and has adopted the sick role regarding many unfounded bodily symptoms. It is also a possibility that these somatic complaints are worsened due to patient's yet untreated significant obstructive sleep apnea. The patient continued to make slow gains. Mood continued to improve. The patient was noted to quickly return to the sick role behaviors in the presence of her mother. This was discussed with the family on many occasions and the patient as well and some degree of understanding took place. During the course of the patient's long admission here it was determined that the patient was no longer in need of transfer to the [facility]. The sleep study was completed and patient would follow up with CPAP machine prescribed through her previously known outpatient provider in the [facility]. The patient would also continue to follow up through [facility]. The patient agreed to abstain from all marijuana and illicit substances and there notably no parasuicidal behaviors or aggressive behaviors seen while the patient was here on the unit. Please see History and Physical for other details and other electronic records. PHYSICAL EXAMINATION Please see electronic record. Vital signs at the time of discharge: Temperature 97.6, pulse 98, respiratory rate 18, blood pressure 114/70 and pulse oximetry 96% on room air. LABORATORY DATA On 04/26/18 CBC notable for WBC slightly elevated at 12.5, neutrophils elevated at 81.1, ESR noted to be in normal range of 6. Chemistry panel notable for C- Reactive protein that was nondetectable or less than 0.5 and normal range. Vitamin B12 had improved to 295 with a folate above 22.3, Vitamin D 25, hydroxy noted to be 19 and low while on the unit. Urinalysis on 04/26/18 was unremarkable. MENTAL STATUS EXAMINATION GENERAL APPEARANCE, BEHAVIOR AND ATTITUDE: This is 23-year-old female, appears stated age, well groomed, making good eye contact. Interacting well with this provide, other treatment team staff and her parents at the time of discharge. No bizarre mannerisms or tics, no psychomotor agitation or retardation. SPEECH: Considered baseline for this patient. Soft at times. MOOD: Described as good. AFFECT: Full and bright. THOUGHT PROCESSES: Goal-directed, the patient desiring to return home and follow up appropriately. Logical overall, no loose associations or flight of ideas. THOUGHT CONTENT: Free of auditory or visual hallucinations, ideas of reference, thought broadcastings, delusions, obsessions or compulsions and free of any suicidal or homicidal ideation. SENSORIUM: Clear. COGNITION: Alert and oriented to person, place, time and situation. MEMORY: Immediate, recent and remote was estimated intact. INTELLIGENCE: Below average, based on exterminator management of this patient. INSIGHT AND JUDGMENT: Considered grossly intact and appropriate for ongoing outpatient management in the absence of substance use. RESULTS OF TESTING Imaging: None. Laboratory data: See above. Psychological testing: Not done. CONSULTATIONS None. TREATMENT Patient received medications, participated in individual and group therapy. HOSPITAL COURSE The patient's lethargic state seemed to quickly improve with the removal of antipsychotic medications previously prescribed. The patient's condition did not seem to worsen in the absence of antipsychotic medications nor did she display any further symptoms of psychosis. The patient maintained sick role behaviors but was easily behaviorally redirected. The patient continued to slowly improve overall. The patient was able to have sleep studies formally completed and at time of discharge was ready to meet with outpatient provider, Dr. Vargas in [place] for further care regarding obstructive sleep apnea. CONDITION OF PATIENT ON DISCHARGE Stable. Considered a minimal risk to herself or others, appropriate for ongoing outpatient care. DISPOSITION The patient was discharged to home in the care of family members. She would follow up in [place] with primary care provider that she has known to arrange for a CPAP machine. The patient was given a copy of final sleep study to the patient as well as to this was faxed to [place] office. The patient agreed to abstain from all substance use including marijuana. She was given the crisis line should symptoms return. The patient strongly encouraged to engage in vocational rehab as well. OUTPATIENT MEDICATIONS: 1. Albuterol Sulfate inhaler p.r.n. 2. Vitamin D3 4000 units daily. 3. Celexa 20 mg every morning. 4. Colace 100 mg b.i.d. 5. Topiramate 100 mg at bedtime. 6. Multivitamin with minerals daily. The risks, benefits and alternatives of the above discharge plan were discussed. Informed consent was given to proceed with the above discharge plan by this patient and patient's parents present at time of discharge. MOUNIKA
== END 2018-04-27 12:30 | disposition home or self-care (01) | DRG 885 ==
LOC: BHS 09:18
PROVIDERS: ADMIT Psychiatry & Neurology Psychiatry; ATTEND Psychiatry & Neurology Psychiatry
DX: F33.1 Major depressive disorder, recurrent, moderate (principal); F06.31 Mood disorder due to known physiological condition with depressive features; G47.33 Obstructive sleep apnea (adult) (pediatric); F12.21 Cannabis dependence, in remission; F45.0 Somatization disorder; F43.12 Post-traumatic stress disorder, chronic; F41.1 Generalized anxiety disorder; F79 Unspecified intellectual disabilities; E66.9 Obesity, unspecified; Z91.5 Personal history of self-harm; Z91.410 Personal history of adult physical and sexual abuse; Z87.828 Personal history of other (healed) physical injury and trauma; Z68.39 Body mass index [BMI] 39.0-39.9, adult; Z88.0 Allergy status to penicillin
CPT/HCPCS: 36415; 36416; 81001; 81025; 82040; 82247; 82306; 82310; 82374; 82435; 82565; 82607; 82746; 82947; 82948; 83735; 84075; 84132; 84155; 84295; 84439; 84443; 84450; 84460; 84481; 84520; 85025; 85651; 86140; 87088; 93005; J3420; J3535; Q0177